=== PATIENT | female | born 1970 | race Asian ===

== ENCOUNTER 2024-09-01 08:31 | Outpatient (AMB) | payer OTHER, SELFPAY ==
--- NOTE | 2024-09-01 08:34 | MHC.PC.OV ---
Vital Signs 09/01/24 08:59 Height 5 ft Weight 165 lb BMI 32.2 BP 144/74 H Blood Pressure Location Lt brachial Position Sitting Respiration 13 Pulse 78 Pulse Source Pulse Oximeter Temp 97.2 F Temp Source Oral Pulse Oximetry (%) 99 Oxygen Delivery Method Room Air Intake Visit Reasons: est care Intake Note: New patient to establish care Burnisher Required: No Allergies No Known Allergies Allergy (Verified 09/01/24 09:23) Medication List - Last Reconciled 09/02/24 by CHON MonzonP- apixaban (Eliquis) 2.5 mg PO BID blood sugar diagnostic (FreeStyle Lite Strips) As directed blood-glucose meter (FreeStyle Lite Meter kit) As directed calcitriol 0.25 mcg PO 3XW calcium acetate 667 mg PO QID clonidine HCl 0.2 mg PO BID escitalopram oxalate (Lexapro) 10 mg PO DAILY esomeprazole magnesium 40 mg PO DAILY hydrochlorothiazide 12.5 mg PO DAILY insulin glargine (Lantus U-100 Insulin) 10 units subcut DAILY lancets As directed levothyroxine 75 mcg PO DAILY linagliptin 5 mg PO DAILY losartan 100 mg PO DAILY nifedipine ER 30 mg PO DAILY ondansetron HCl 4 mg PO DAILY PRN prazosin 5 mg PO BID repaglinide 0.5 mg PO TID sildenafil (pulm.hypertension) 20 mg PO TID torsemide 40 mg PO DAILY Tobacco use date assessed: 09/01/24 Dental Screening Dental Screen Date: 09/01/24 Did you have a dental visit in the last 12 months?: No Did you have a dental problem in the last 6 months where you did not have access to dental care?: No Was dental information given to patient?: Yes HPI HPI Comments History of Present Illness Details 54 y/o F with pericardial effusion, pulmonary HTN, CKD on dialysis, DM2, hypothroid lap matias Health Maintenance Tdap admin today Specialists [facility] Pulm Optho History of Present Illness - The patient is a 54-year-old female presenting to establish care and management of her chronic conditions. - Just moved from [place] 1 month ago; Dtr offers help with language barrier - History of type 2 diabetes with complications; control previously on insulin, current fluctuations with levels averaging 300 mg/dL post dialysis initiation. Was on Insulin but stopped taking. A1c 7.9% in the setting of anemia, so falsey low. - Chronic kidney disease necessitating dialysis since June 2024, [facility] Dialysis - Hypothyroidism, pulmonary hypertension, and pericardial effusion documented. - Recent hospitalization for pericardial effusion, initiating dialysis due to elevated creatinine and potassium levels. - Transition complications due to recent relocation from [place] with adjustments in healthcare access and management. Review of Systems - Cardiovascular: Denies current chest pain, but has had recent hospitalization for pericardial effusion. - Endocrine: Reports history of hypothyroidism and diabetes. - Genitourinary: Onset of dialysis discussed. - Medications: Discussed multiple daily medications, denies current medicine allergies. - Neurologic: No reports of dizziness or weakness. - Gastrointestinal: Absence of gallbladder noted. Physical Exam General: Well developed, well nourished, in no acute distress. Appears stated age. Head: Normocephalic, atraumatic. Eyes: Pupils are equal, round and reactive to light and accommodation. Conjunctivae are clear. Lungs: Dim throughout. Heart: Regular rate and rhythm. 2/6 systolic murmurs, No click, rubs or gallops are noted. Pulses: Peripheral pulses are equal and palpable bilaterally. Extremities: No clubbing, cyanosis nor edema is noted. Psych: Mood and affect appropriate. Diagnostic results Labs from Renal 07/2024 reviewed. I called [facility], who states she has only filled Losaratan 100mg QD and Nifedipine Er 30mg QD on 08/01/24, no other meds filled there. When i looked up the meds that she brought me that she has been taking from [place] (see above), here is what i came up with. Acebrophylline is not [place] FDA approved for use, COPD. Yan IBARRA is also not [place] FDA approved for use of angina. Isosorbide could be used, listed on drug list elsewhere Ranexa is the closest [place] equivalent. Atorvastatin 20mg and ASA can be given in place of one of the meds. Repaglinide is avail here but i dont know how often she is taking. Discussion Notes I discussed with the patient the complexities of her current health status, focusing on her chronic conditions such as diabetes, kidney disease, hypertension, and the recent adjustment to dialysis. We explored management options including continued monitoring of blood pressure and glucose levels, ensuring stability on her current medication regimen. The importance of regular diabetic eye exams was highlighted, with a referral provided locally. Adjusting to, and understanding the [place] healthcare system were discussed, offering support as needed. We emphasized potential benefits from a manpower development specialist manager to aid in her diabetes management, outlining available resources and ensuring continuity of care, including regular follow-up for ongoing monitoring. Assessment and Plan 1. Type 2 Diabetes Mellitus - Monitor glucose levels. - customer training specialist referral provided. - Target A1c below 7.0. 2. Hypertension - Working on meds @ this time as i am not sure what she really has been taking. Her dtr provided a very long list of meds; but i cannot find a local claim hx and the meds are not all accounted for from [place]. 3. Chronic Kidney Disease - Ongoing dialysis. - Nephrology follow-up for monitoring and management. 4. Hypothyroidism - Continue thyroid medication. - Monitor levels and adjust therapy. TSH > 6 increase from 50mcg qd to 75 mcg Endo referral in place 5. Pulmonary Hypertension - Monitor for symptoms; cardiology referral placed . - Continue current management plan. - unclear if she is on or taking torsemide. 6. Pericardial Effusion - Monitor for symptom recurrence. Cards referral 7. Eye Exam - Referral to ophthalmology for retinopathy screening. - Importance of annual exams emphasized. In closing - The meds i have prescribed are Losartan Nifedipine lantus 5 units Zofran atorvastatin levothyroxine nifedipine DM testing supplies I could not confirm any of the other meds, depsite several hours of effort. Consent Patient was informed and verbally consented to the use of an ambient scribe for clinic note documentation during this visit. Total time spent caring for the patient today was 90 minutes. This includes time spent before the visit reviewing the chart, time spent during the visit, and time spent after the visit on documentation, reviewing laboratory results, diagnostic imaging, medications, performing a medically necessary evaluation, counseling on diagnoses, care coordination, ordering appropriate tests, ordering appropriate medications, review of tests performed by other providers, reporting test results with the patient, communication with other healthcare providers. [facility] Medical History (Updated 09/02/24 @ 16:43 by [facility] Edema GERD (gastroesophageal reflux disease) Kidney disease Liver disease Spine disorder Surgical History (Updated 09/01/24 @ 09:26 by José Flaherty MA) No pertinent past surgical history Family History (Updated 09/01/24 @ 09:24 by José Flaherty MA) Mother HTN (hypertension) Diabetes Father HTN (hypertension) Sister Diabetes Brother Diabetes Social History (Updated 09/01/24 @ 09:23 by José Flaherty MA) Household Members: Family Both parents involved: No Caregiver staying overnight: No Housing: House Are you a primary child care center administrator to a significant other at home: No Do you presently have visiting nurse or other home services: No 75 years or older and lives alone: No Alcohol intake: never Patient Tobacco Use Status: Never used Tobacco e-Cigarette/Vaping Use: Never Used Second Hand Smoke Exposure: No Current occupational status: unemployed and disabled Cognitive needs: No Hearing needs: No Vision needs: No Questionnaire PHQ-9 Over the last 2 weeks, how often have you been bothered by any of the following problems? 1. Little interest or pleasure in doing things: not at all 2. Feeling down, depressed, or hopeless: not at all 3. Trouble falling or staying asleep, or sleeping too much: not at all 4. Feeling tired or having little energy: not at all 5. Poor appetite or overeating: not at all 6. Feeling bad about yourself - or that you are a failure or have let yourself or your family down: not at all 7. Trouble concentrating on things, such as reading the newspaper or watching television: not at all 8. Moving or speaking so slowly that other people could have noticed. Or the opposite - being so fidgety or restless that you have been moving around a lot more than usual: not at all 9. Thoughts that you would be better off or of hurting yourself in some way: not at all Total score: 0 Depression Screening Interpretation: Negative Depression Screening Done: Yes 38633 - PHQ-9 Billing: Yes Source: Developed by Drs. Geo Frank, Sharon Murillo, Alex Mcnally and colleagues, with an educational malika from [employer]. Thrive Questionnaire Date Thrive assessed: 09/01/24 I am a: Parent/Caregiver What is your living situation today?: I have a steady place to live Within the past 12 months, did the food you bought not last and you didn't have the money to get more?: Never true Within the past 12 months, did you worry whether your food would run out before you got money to buy more?: Never true Do you have trouble paying for medicines?: No Do you have trouble getting transportation to medical appointments?: Yes Do you have trouble paying your heating and electricity bill?: No Do you have trouble taking care of your child, family member or friend?: No Do you have trouble with day-to-day activities such as bathing, preparing meals, shopping, managing finances, etc.?: Yes Are you currently unemployed and looking for a job?: No Are you interested in more education?: No Please select the resources that you would like help with: Transportation Currently or been in a relationship where the following occur: No concerns reported THRIVE Score: 1 AUDIT C Alcohol Use Questionnaire (AUDIT-C) 1. How often do you have a drink containing alcohol?: Never 3. How often do you have six or more drinks on one occasion?: Never Total Score: 0 Score Reviewed/Action Taken: Yes BRIAN-7 AMB Questionnaire BRIAN-7 Date BRIAN - 7 assessed: 09/01/24 Feeling nervous, anxious, or on edge: 0 = Not at all Not being able to stop or control worryin = Not at all Worrying too much about different things: 0 = Not at all Trouble relaxin = Not at all Being so restless that it is hard to sit still: 0 = Not at all Becoming easily annoyed or irritable: 0 = Not at all Feeling afraid as if something awful might happen: 0 = Not at all Total BRIAN-7 score (0-4 normal; 5-9 mild; 10-14 moderate; 15-21 severe): 0 Source: Developed by Drs. Geo Frank, Sharon Murillo, Alex Mcnally and colleagues, with an educational malika from [employer]. BRIAN-7 Assessment Billing BRIAN-7 Assessment Tool: BRIAN-7 Assessment 19264 Physical exam (Primary Care) Vital Signs: Last Vital Signs Temp 97.2 F 09/01/24 08:59 Pulse 78 09/01/24 08:59 Resp 13 09/01/24 08:59 BP 144/74 H 09/01/24 08:59 Pulse Ox 99 09/01/24 08:59 Oxygen Delivery Method Room Air 09/01/24 08:59 BMI result Body Mass Index 32.2 Tobacco/Smoking Status: Tobacco use Status Tobacco use date assessed 09/01/24 09/01/24 08:37 Patient Tobacco Use Status Never used Tobacco 09/01/24 09:23 e-Cigarette/Vaping Use Never Used 09/01/24 09:23 PHQ-9: PHQ-9 Score PHQ-9: Total score 0 09/02/24 11:20 Depression Screening Interpretation: Negative Thrive Assessment: Date of Thrive Assessment Date Thrive assessed 09/01/24 09/01/24 08:37 Currently or been in a relationship where the following occur: No concerns reported Results AMB Hemoglobin A1c AMB Hemoglobin A1c 7.9 % Last Edit by José Flaherty MA on 09/01/24 09:20 Immunizations Boostrix Tdap 2.5 Lf unit-8 mcg-5 Lf/0.5 mL intramuscular syringe Performing Provider: GABBIE Monzon [place] [facility] Administered by: José Flaherty MA on 09/01/24 09:38 Dose Route Admin Location Dispensed Lot Number Expiration Date [facility] Dye Tub Operator 0.5 mL IM Left Deltoid 0.5 mL [id number] 11/25/26 [id number] [employer] VIS Given Date VIS Provided VIS Publication Date 09/01/24 Single Vaccine 20 Eligibility Eligibility Date Funding Source Not [facility] Eligible 09/01/24 Private Results Reviewed Results Reviewed: Laboratory Last Values Hgb A1c (Clinic) 7.9 % (4.0-6.0) H 09/01/24 09:20 Coding Level of Care Code New Pt Level 5 (32002) Complex EM visit Add On G2211 Diagnoses Encounter to establish care Z76.89 Dialysis patient Z99.2 ESRD on hemodialysis N18.6; Z99.2 Diabetes mellitus type 2 with complications E11.8 Acquired hypothyroidism E03.9 Hypothyroidism type: acquired Hypertension due to endocrine disorder I15.2 Hypertension type: secondary to endocrine disorders Secondary hyperparathyroidism (of renal origin) N25.81 Anemia in chronic kidney disease, on chronic dialysis N18.6; D63.1; Z99.2 Need for Tdap vaccination Z23 Angina pectoris associated with type 2 diabetes mellitus E11.59; I20.9 Pulmonary HTN I27.20 Pericardial effusion I31.39 CPT Codes [facility] OUTPT/OFFICE VIS - G2212 Additional Codes BRIAN-7 Assessment Billing - BRIAN-7 Assessment Tool: BRIAN-7 Assessment 44444 ([id number]) PHQ-9 - 88812 - PHQ-9 Billing: Yes ([id number]) Assessment & Plan Assessment & Plan (1) Encounter to establish care: Code(s): Z76.89 - Persons encountering health services in other specified circumstances (2) Dialysis patient: Comment: [facility] dialysis, Dr Shahab Weinberg Code(s): Z99.2 - Dependence on renal dialysis Category: Medical (3) ESRD on hemodialysis: Code(s): N18.6 - End stage renal disease; Z99.2 - Dependence on renal dialysis Category: Medical (4) Diabetes mellitus type 2 with complications: Code(s): E11.8 - Type 2 diabetes mellitus with unspecified complications Category: Medical (5) Hypothyroid: Code(s): E03.9 - Hypothyroidism, unspecified Category: Medical Qualifiers: Hypothyroidism type: acquired Qualified Code(s): E03.9 - Hypothyroidism, unspecified (6) HTN (hypertension): Code(s): I10 - Essential (primary) hypertension Category: Medical Qualifiers: Hypertension type: secondary to endocrine disorders Qualified Code(s): I15.2 - Hypertension secondary to endocrine disorders (7) Secondary hyperparathyroidism (of renal origin): Comment: 08/17/24 [facility] Code(s): N25.81 - Secondary hyperparathyroidism of renal origin Category: Medical (8) Anemia in chronic kidney disease, on chronic dialysis: Code(s): N18.6 - End stage renal disease; D63.1 - Anemia in chronic kidney disease; Z99.2 - Dependence on renal dialysis Category: Medical (9) Need for Tdap vaccination: Code(s): Z23 - Encounter for immunization Category: Medical (10) Angina pectoris associated with type 2 diabetes mellitus: Code(s): E11.59 - Type 2 diabetes mellitus with other circulatory complications; I20.9 - Angina pectoris, unspecified Category: Medical (11) Pulmonary HTN: Code(s): I27.20 - Pulmonary hypertension, unspecified Category: Medical (12) Pericardial effusion: Code(s): I31.39 - Other pericardial effusion (noninflammatory) Category: Medical Plan . Orders: Orders AMB Hemoglobin A1c 09/01/24 E11.8 - Type 2 diabetes mellitus with unspecified complications, Z13.9 - Encounter for screening, unspecified TDaP Immunization 09/01/24 Z23 - Encounter for immunization Referrals Ophthalmology Referral E11.8 - Type 2 diabetes mellitus with unspecified complications Cardiology Referral E11.59 - Type 2 diabetes mellitus with other circulatory complications, E11.8 - Type 2 diabetes mellitus with unspecified complications, I10 - Essential (primary) hypertension, I20.9 - Angina pectoris, unspecified, I27.20 - Pulmonary hypertension, unspecified, I31.39 - Other pericardial effusion (noninflammatory) Endocrinology Referral E03.9 - Hypothyroidism, unspecified, E11.8 - Type 2 diabetes mellitus with unspecified complications, N18.6 - End stage renal disease, Z99.2 - Dependence on renal dialysis Pulmonology Referral I27.20 - Pulmonary hypertension, unspecified, I31.39 - Other pericardial effusion (noninflammatory) Medications: New levothyroxine 75 mcg PO DAILY 90 tabs 0RF atorvastatin 20 mg PO BEDTIME 90 tabs 0RF losartan 100 mg PO DAILY 90 tabs 0RF nifedipine ER 30 mg PO DAILY 90 tabs 0RF insulin glargine (Lantus U-100 Insulin) 5 units (0.05 mL) subcut DAILY 90 days 4.5 mL 0RF pen needle, diabetic (Comfort EZ Pen [place]) As directed daily 100 ea 0RF blood-glucose meter (FreeStyle Lite Meter kit) As directed 1 ea 0RF E11.8 - Type 2 diabetes mellitus with unspecified complications blood sugar diagnostic (FreeStyle Lite Strips) As directed 100 ea 11RF E11.8 - Type 2 diabetes mellitus with unspecified complications lancets As directed 100 ea 0RF ondansetron HCl 4 mg PO DAILY PRN 90 tabs 0RF nausea and vomiting
--- OUTSIDE RECORDS SUMMARY | 2024-09-01 08:52 | XMS_ITS | Encounter Summary ---
Author Organization [facility], Address [address] [place] [address] Phone Care Team Providers Care Bed And Breakfast Cook Name Role Phone Simone Guerra MD Primary Care Provider [phone] Encounter Details Date Type Department Care Team (Late st Contact Info) Description 08/29/2024 Treatment [facility], [address] [place] [phone] [place] [address] [place] [phone] End stage renal disease; Dependence on renal dialysis Social History Tobacco Use Types Packs/Day Years Used Date Smoking Tobacco: Never Assessed Comments Unknown Sex and Gender Information Value Date Recorded Sex Assigned at Not on file Legal Sex Female 8:56 AM EDT Gender Identity Not on file Sexual Orientation Not on file documented as of this encounter Miscellaneous Notes * Dialysis Note - Ally Dodge APRN - 08/29/2024 12:00 AM EDT Patient: AMANDA JIM, 1970, 54y, F Dialysis Location: [facility] Attending Brewing Director: Shahab Weinberg Service Date: 08/29/2024 Service Provider: Ally Dodge NP I met face to face with the patient today. OVERVIEW The patient presented with ESRD on dialysis Primary cause of renal failure: Hypertensive chronic kidney disease with stage 1 through stage 4 chronic kidney disease, or unspecified chronic kidney disease DIALYSIS PRESCRIPTION IHD 3x Week Start date: 08/22/24 Dialyzer: 160NRe Optiflux BFR: 350 DFR: Manual 800 Potassium: 2.0 Sodium: 137 EDW: 76 Duration: 3:30 Calcium: 2.50 Bicarb: 35 Rx updated on: 08/22/2024 TREATMENT ASSESSMENT BP Stand Pre 08/26/2024: 156/64 08/24/2024: 121/58 08/22/2024: 164/104 BP Sit Pre 08/26/2024: 138/66 08/24/2024: 111/56 08/22/2024: 161/69 BP Stand Post 08/26/2024: 160/68 08/24/2024: 125/48 08/22/2024: 165/70 BP Sit Post 08/26/2024: 173/80 08/24/2024: 139/63 08/22/2024: 171/72 Tx Duration 08/26/2024: 3:38 08/24/2024: 3:31 08/22/2024: 3:35 Missed Treatments 0 - last 30 days 0 - last 60 days FLUID ASSESSMENT EDW (kg) 08/26/2024: 76.0 08/24/2024: 76.0 08/22/2024: 76.0 Weight Pre (kg) 08/26/2024: 76.8 08/24/2024: 78.2 08/22/2024: 76.7 Weight Post (kg) 08/26/2024: 74.3 08/24/2024: 74.8 08/22/2024: 75.2 PWV (kg) 08/26/2024: -1.7 08/24/2024: -1.2 08/22/2024: -0.8 UF Rate (mL/kg/hr) 08/26/2024: 9.3 08/24/2024: 12.9 08/22/2024: 5.6 ADEQUACY ASSESSMENT spKt/V, URR 08/03/2024: 1.85, 79.0 07/22/2024: 1.28, 67.0 ACCESS ASSESSMENT Access Type: [email or web address] Access SubType: Standard Access Status: Active (In Use) - 07/13/2024 Access Location: Right Upper Arm Created: --/--/---- Flow 08/29/2024: 1808 ANEMIA ASSESSMENT HGB, TSAT 08/24/2024: 9.7, - 08/17/2024: 9.6, 25.0 08/10/2024: 10.0, - Ferritin 08/17/2024: 826.0 07/18/2024: 1170.0 Mircera, IVP (mcg) 08/26/2024: 75 08/10/2024: 75 Iron Sucrose (Venofer) (mg) 08/26/2024: 100 08/24/2024: 100 08/22/2024: 100 BMM ASSESSMENT PTH, Intact 08/17/2024: 339.0 07/18/2024: 276.0 Calcium, Phosphorus 08/17/2024: 8.1, 4.8 07/18/2024: 8.3, 4.6 Vitamin D (Calcitriol) Oral (mcg) 08/26/2024: 0.25 08/24/2024: 0.25 08/22/2024: 0.25 NUTRITION ASSESSMENT Potassium, Albumin 08/22/2024: 4.4, - 08/17/2024: 4.8, 3.6 08/15/2024: 5.0, - eNPCR 08/03/2024: 0.7 07/22/2024: 0.61 DIAGNOSIS Chief Complaint: N18.6 End stage renal disease Comments: Patient seen and examined. VSS with no complaints to offer. S1, S2, RRR. LS CTA bilaterally. Access patent. Patient is stable. Patient data updated 08/29/2024 at 8:29 AM Signed By: Ally Dodge NP on 08/29/2024 8:30:05 AM documented in this encounter Plan of Treatment Not on file documented as of this encounter Visit Diagnoses Diagnosis End stage renal disease Dependence on renal dialysis documented in this encounter Care Teams Bed And Breakfast Cook Relationship Specialty Start Date End Date Simone Guerra MD [address] [address] PCP - General Family Medicine 08/09/24 documented as of this encounter
[2024-09-01 08:59] VITALS: BP 144/74; PULSE 78; RESP 13; TEMP 36.2; O2SAT 99; BMI 32.2
== END 2024-09-01 09:42 | disposition home or self-care (01) ==
LOC: HO.HMCFM 08:32
PROVIDERS: PCP Nurse Practitioner Family; Visit Provider Nurse Practitioner Family
DX: Z13.9 Encounter for screening, unspecified (principal); E11.8 Type 2 diabetes mellitus with unspecified complications; Z23 Encounter for immunization

== ENCOUNTER → 2024-09-01 08:31 | Outpatient (BNVA) | payer OTHER, SELFPAY | PROVIDERS: PCP Nurse Practitioner Family; Visit Provider Nurse Practitioner Family | DX: E11.22 Type 2 diabetes mellitus with diabetic chronic kidney disease (principal); N18.6 End stage renal disease; E03.9 Hypothyroidism, unspecified; I27.20 Pulmonary hypertension, unspecified; E11.8 Type 2 diabetes mellitus with unspecified complications; I15.2 Hypertension secondary to endocrine disorders; Z76.89 Persons encountering health services in other specified circumstances; Z23 Encounter for immunization; Z99.2 Dependence on renal dialysis | CPT/HCPCS: 83036; 90471; 90715; 96127 ==

== ENCOUNTER 2024-09-07 09:12 | Outpatient (AMB) | payer OTHER, SELFPAY ==
--- NOTE | 2024-09-07 09:19 | MHC.PC.OV ---
Intake Visit Reasons: Med Review Allergies No Known Allergies Allergy (Verified 09/07/24 09:50) Medication List - Last Reconciled 09/07/24 by Nora Franklin, [facility]- apixaban (Eliquis) 2.5 mg PO BID atorvastatin 20 mg PO BEDTIME blood sugar diagnostic (FreeStyle Lite Strips) ONCE PER DAY blood-glucose meter (FreeStyle Lite Meter kit) ONCE PER DAY calcitriol 0.25 mcg PO 3XW calcium acetate 667 mg PO QID clonidine HCl 0.2 mg PO BID escitalopram oxalate (Lexapro) 10 mg PO DAILY esomeprazole magnesium 40 mg PO DAILY hydrochlorothiazide 12.5 mg PO DAILY insulin glargine (Lantus U-100 Insulin) 5 units (0.05 mL) subcut DAILY 90 days lancets ONCE PER DAY levothyroxine 75 mcg PO DAILY linagliptin 5 mg PO DAILY losartan 100 mg PO DAILY nifedipine ER 30 mg PO DAILY ondansetron HCl 4 mg PO DAILY PRN pen needle, diabetic (Comfort EZ Pen [place]) As directed daily prazosin 5 mg PO BID repaglinide 0.5 mg PO TID sildenafil (pulm.hypertension) 20 mg PO TID torsemide 40 mg PO DAILY Tobacco use date assessed: 09/01/24 Dental Screening Dental Screen Date: 09/01/24 HPI HPI Comments History of Present Illness Details 54 y/o F with pericardial effusion, pulmonary HTN, CKD on dialysis, DM2, hypothroid lap matias Health Maintenance Tdap 08/2024 [facility] Here with dtr today to review medications Presents with the same list as last time Brother, who is a Dr in [place], called at the time of the visit He states she was Rxd lexapro for anxiety that she was having while hospitalized. She is no longer having anxiety now that she is here with Dtr. has been w/o this med since May and does not need it. The eliquis was started before having an angiogram while she was hospitalized. She was to stop it after a negative angiogram 05/2024. She in fact has not been taking this She does not have Afib. She has been taking linagliptin 5mg for her DM and kidneys but has been without Rapaglinide 0.5 mg TID for diabetes, has been without for at least 2 weeks For BP control: HCTZ, clonidine in addition to losartan Pulm HTN sildenafil 20mg TID , prazosin 5 mg BID , Torsemide 40mg daily Esomeprazole for GI protection I reviewed the meds below and my findings: When i looked up the meds that she brought me that she has been taking from [place] (see above), here is what i came up with. Acebrophylline is not [place] FDA approved for use, COPD. Yan IBARRA is also not [place] FDA approved for use of angina. Isosorbide could be used, listed on drug list elsewhere Ranexa is the closest [place] equivalent. Atorvastatin 20mg and ASA can be given in place of one of the meds.* Repaglinide is avail here but i dont know how often she is taking. * Brother agrees to cont * meds but stopping all others. Cards, Pulm appts pending at this time Message sent to cards for appt and help w med optimization Defer to Pulm for CPAP/02 needs. Endo appt scheduled - they can adjust meds as needed. refills have been sent on all meds; eliquis and lexapro were d/c. new med listed printed and given to dtr at time of visit Total time spent caring for the patient today was 61 minutes. This includes time spent before the visit reviewing the chart, time spent during the visit, and time spent after the visit on documentation, reviewing laboratory results, diagnostic imaging, medications, performing a medically necessary evaluation, counseling on diagnoses, care coordination, ordering appropriate tests, ordering appropriate medications, review of tests performed by other providers, reporting test results with the patient, communication with other healthcare providers. [facility] Medical History (Updated 09/07/24 @ 09:50 by Nora Franklin, [facility]) Edema GERD (gastroesophageal reflux disease) Kidney disease Liver disease Spine disorder Surgical History (Updated 09/01/24 @ 09:26 by José Flaherty MA) No pertinent past surgical history Family History (Updated 09/01/24 @ 09:24 by José Flaherty MA) Mother HTN (hypertension) Diabetes Father HTN (hypertension) Sister Diabetes Brother Diabetes Social History (Updated 09/01/24 @ 09:23 by José Flaherty MA) Household Members: Family Both parents involved: No Caregiver staying overnight: No Housing: House Are you a primary resident care assistant to a significant other at home: No Do you presently have visiting nurse or other home services: No 75 years or older and lives alone: No Alcohol intake: never Patient Tobacco Use Status: Never used Tobacco e-Cigarette/Vaping Use: Never Used Second Hand Smoke Exposure: No Current occupational status: unemployed and disabled Cognitive needs: No Hearing needs: No Vision needs: No Questionnaire Thrive Questionnaire Date Thrive assessed: 09/01/24 BRIAN-7 AMB Questionnaire BRIAN-7 Date BRIAN - 7 assessed: 09/01/24 Source: Developed by Drs. Geo Frank, Sharon Murillo, Alex Mcnally and colleagues, with an educational malika from [employer]. Physical exam (Primary Care) Tobacco/Smoking Status: Tobacco use Status Tobacco use date assessed 09/01/24 09/01/24 08:37 Patient Tobacco Use Status Never used Tobacco 09/01/24 09:23 e-Cigarette/Vaping Use Never Used 09/01/24 09:23 Thrive Assessment: Date of Thrive Assessment Date Thrive assessed 09/01/24 09/01/24 08:37 Coding Level of Care Code Est Pt Level 5 (39108) Complex EM visit Add On G2211 Diagnoses Health education/counseling Z71.9 Diabetes mellitus type 2 with complications E11.8 Hypertension due to endocrine disorder I15.2 Hypertension type: secondary to endocrine disorders Pericardial effusion I31.39 Secondary hyperparathyroidism (of renal origin) N25.81 Pulmonary HTN I27.20 Angina pectoris associated with type 2 diabetes mellitus E11.59; I20.9 Assessment & Plan Assessment & Plan (1) Health education/counseling: Code(s): Z71.9 - Counseling, unspecified Category: Medical (2) Diabetes mellitus type 2 with complications: Code(s): E11.8 - Type 2 diabetes mellitus with unspecified complications Category: Medical (3) HTN (hypertension): Code(s): I10 - Essential (primary) hypertension Category: Medical Qualifiers: Hypertension type: secondary to endocrine disorders Qualified Code(s): I15.2 - Hypertension secondary to endocrine disorders (4) Pericardial effusion: Code(s): I31.39 - Other pericardial effusion (noninflammatory) Category: Medical (5) Secondary hyperparathyroidism (of renal origin): Comment: 08/17/24 339 Code(s): N25.81 - Secondary hyperparathyroidism of renal origin Category: Medical (6) Pulmonary HTN: Code(s): I27.20 - Pulmonary hypertension, unspecified Category: Medical (7) Angina pectoris associated with type 2 diabetes mellitus: Code(s): E11.59 - Type 2 diabetes mellitus with other circulatory complications; I20.9 - Angina pectoris, unspecified Category: Medical Plan . Medications: New repaglinide administer within 30 minutes of a meal or snack 0.5 mg PO TID 90 tabs 0RF clonidine HCl 0.2 mg PO BID 180 tabs 0RF hydrochlorothiazide 12.5 mg PO DAILY 90 tabs 0RF esomeprazole magnesium 40 mg PO DAILY 90 caps 0RF aspirin 81 mg PO DAILY 90 tabs 2RF linagliptin 5 mg PO DAILY 90 tabs 2RF sildenafil (pulm.hypertension) administer doses at least 4-6 hours apart 20 mg PO TID 90 tabs 0RF prazosin 5 mg PO BID 180 caps 0RF torsemide 40 mg PO DAILY 90 tabs 0RF
--- OUTSIDE RECORDS SUMMARY | 2024-09-07 09:47 | XMS_ITS ---
Author Organization [facility] tia ([facility] interaction) Address [address] [place] [id number] Care Team Providers Care Chemical Milling Processor Name Role Phone Unavailable Unavailable Unavailable Allergies, Adverse Reactions, Alerts This patient has no known allergies or adverse reactions. Problems This patient has no known problems.
== END 2024-09-07 09:43 | disposition home or self-care (01) ==
LOC: HO.HMCFM 09:12
PROVIDERS: PCP Nurse Practitioner Family; Visit Provider Nurse Practitioner Family
DX: E11.8 Type 2 diabetes mellitus with unspecified complications (principal); E11.59 Type 2 diabetes mellitus with other circulatory complications; I27.20 Pulmonary hypertension, unspecified; Z71.9 Counseling, unspecified; I15.2 Hypertension secondary to endocrine disorders; I31.39 Other pericardial effusion (noninflammatory); N25.81 Secondary hyperparathyroidism of renal origin; I20.9 Angina pectoris, unspecified

== ENCOUNTER → 2024-09-07 09:12 | Outpatient (BNVA) | payer OTHER, SELFPAY | PROVIDERS: PCP Nurse Practitioner Family; Visit Provider Nurse Practitioner Family | DX: Z13.89 Encounter for screening for other disorder (principal) ==

== ENCOUNTER 2024-09-13 13:25 | Outpatient (AMB) | payer OTHER, SELFPAY ==
[2024-09-13 13:27] VITALS: BP 130/52; PULSE 71; O2SAT 95; BMI 32.5
--- NOTE | 2024-09-13 13:27 | MHC.OFFVIS ---
Vital Signs 09/13/24 13:27 Height 5 ft Weight 166 lb 4 oz BMI 32.5 BP 130/52 L Blood Pressure Location Lt brachial Position Sitting Pulse 71 Pulse Source Pulse Oximeter Pulse Oximetry (%) 95 Oxygen Delivery Method Room Air Intake Visit Reasons: Pulmonary hypertension/ Allergies No Known Allergies Allergy (Verified 09/13/24 13:30) HPI HPI Pulmonary hypertension/: Details: Amanda is a pleasant 54 year old female, never smoker, with underlying COPD, pulmonary hypertension, CKD on dialysis 06/2024, h/o pericardial effusion, DMII, Hypothyroidism and question ELTON, previously on ELTON. She recently moved here from [facility] two months ago and presents to establish pulmonary care. She is accompanied by daughter, and on the phone was her son, physician in [place]. She is requesting daughter translate for duration of appointment. She reports hospitalizations earlier this year related to CKD now maintained on dialysis MWF, h/o pericardial effusion and new diagnosis of moderate pulmonary hypertension. She had echo 05/2024 in [facility] which revealed LVEF 55%, dilated RA/RV with RVSP 54, currently on sildenafil, toresemide and prazosin. She also underwent cardiac cath however RVSP or pulmonary wedge pressure not documented. Prior CTA 05/2024 performed in [facility] revealed enlargement of pulmonary trunk, negative for PE with patchy ggo of bilateral lungs, images not available today. Prior to hospitalizations patient with significant dyspnea resulting in limited activity and orthopnea however since initiating dialysis patient reports resolution of dyspnea on minimal exertion/orthopnea, continues with moderate exertion. At this time, denies cough, wheezing or chest tightness. She denies prior h/o asthma, diagnosed with COPD after COVID 2019. She has previously been prescribed nebulized therapy with budesonide with good effect. She does not currently have a nebulizer. She denies prior need for supplemental oxygen, often checks at home never less than 95% on room air. She denies seasonal allergies. She denies occupational exposures. She denies any pertinent family history. [facility] Medical History (Updated 09/15/24 @ 16:51 by Oziel Ba MD) Kidney disease GERD (gastroesophageal reflux disease) Liver disease Edema Spine disorder Surgical History (Updated 09/01/24 @ 09:26 by José Flaherty MA) No pertinent past surgical history Family History (Updated 09/01/24 @ 09:24 by José Flaherty MA) Mother HTN (hypertension) Diabetes Father HTN (hypertension) Sister Diabetes Brother Diabetes Social History Household Members: Family Housing: House Are you a primary manager critical care unit to a significant other at home: No Do you presently have visiting nurse or other home services: No Alcohol intake: never Patient Tobacco Use Status: Never used Tobacco e-Cigarette/Vaping Use: Never Used Second Hand Smoke Exposure: No Current occupational status: unemployed and disabled Cognitive needs: No Hearing needs: No Vision needs: No Review of Systems Const Denies chills, Denies excessive sweating, Denies fever(s), Denies headache(s) and Denies night sweats Eyes Denies dry eyes, Denies irritation and Denies itchy eyes ENT Reports Normal hearing present, Denies headache(s), Denies nasal congestion, Denies nasal discharge, Denies post nasal drip and Denies sore throat Card Denies chest pain, Denies chest pain at rest, Denies chest pain with activity, Denies claudication, Denies leg edema, Denies orthopnea and Denies paroxysmal nocturnal dyspnea Resp Denies chest congestion, Denies cough, Denies excessive phlegm production, Denies pain on inspiration, Denies pain with cough, Denies stridor and Denies wheezing Musc Denies myalgias Neuro Reports Normal hearing present and Denies headache(s) Endo Denies excessive sweating Thierno/Lymph Denies lymphadenopathy Aller/Immun Denies itchy eyes, Denies seasonal rhinorrhea and Denies wheezing Physical Exam Vital Signs: Last Vital Signs Pulse 71 09/13/24 13:27 BP 130/52 L 09/13/24 13:27 Pulse Ox 95 09/13/24 13:27 Oxygen Delivery Method Room Air 09/13/24 13:27 BMI result Body Mass Index 32.5 Const General: cooperative, healthy appearing, comfortable, no acute distress, well developed and alert Nutritional Appearance: obese Orientation/consciousness: patient oriented x3 Limitations: no limitations HEENT Head: Yes normal to inspection, Yes normocephalic and Yes atraumatic Ears: hearing grossly normal bilaterally and external ears normal Eyes General: appearance normal, both eyes and all related structures Eyelids: Yes eyelids normal Sclerae: sclerae normal EOM: EOMs intact bilaterally Neck Neck: Yes normal visual inspection and Yes no lymphadenopathy Lymphatic: no lymphadenopathy noted Chest Chest palpation & inspection: normal inspection of the chest Resp Effort & Inspection: normal respiratory effort, able to speak in complete sentences, no audible wheezes, no cough, no stridor, not tachypneic, no tripod positioning and no use of accessory muscles Auscultation: clear to auscultation bilaterally Cardio Jugular venous distension: no JVD Rate: regular rate Rhythm: regular rhythm Skin Other: warm, dry General skin exam: no rashes or lesions noted Neuro General: patient oriented x3 Cranial nerves: Yes Normal hearing present Cognition (Neuro): normal cognition Gait exam (Neuro): Normal gait present Extrem General: Yes normal to inspection, Yes capillary refill normal, Yes no clubbing, cyanosis or edema and Yes no pedal edema Psych Appearance: grossly normal and well kempt Speech and movement: Normal speech and movement present and Clear speech present Affect: normal affect Attitude: cooperative Thought process: Normal thought process present Thought content: Normal thought content present Insight: Good insight present (Psych) Judgement: Good judgement present (Psych) Assessment & Plan Assessment & Plan (1) Pulmonary HTN: Code(s): I27.20 - Pulmonary hypertension, unspecified Category: Medical (2) COPD (chronic obstructive pulmonary disease): Code(s): J44.9 - Chronic obstructive pulmonary disease, unspecified Category: Medical (3) Obstructive sleep apnea: Code(s): G47.33 - Obstructive sleep apnea (adult) (pediatric) Category: Medical (4) Daytime somnolence: Code(s): R40.0 - Somnolence Category: Medical (5) Ground glass opacity present on imaging of lung: Code(s): R91.8 - Other nonspecific abnormal finding of lung field Category: Medical Plan Amanda presents for pulmonary evaluation with prior history of COPD and pulmonary hypertension. Prior estimated RSVP 55 on echo 05/2024. She underwent cardiac cath however no note of pulmonary pressures on this nor wedge pressure. Will repeat echo since patient has since initiated dialysis and may have been falsely elevated due to fluid overload. PCP recently refilled sildenafil which she is currently out of and awaiting prescription. At some point patient required CPAP therapy, will repeat to assess continued need as she reports daytime fatigue. Prior CT 05/2024 revealed diffuse ground glass opacities, possibly related to fluid overload, will repeat. Will send for PFT to assess severity of obstructive defect. She was previously on nebulized therapy in [place]. Will send nebulizer for home use with albuterol and consider ICS/LABA. All questions were answered and patient is in agreement of plan. Will follow up to review results or sooner if needed. Orders: Orders RT home sleep study Today R40.0 - Somnolence CT chest wo IV con Today R91.8 - Other nonspecific abnormal finding of lung field Medications: New albuterol sulfate 2.5 mg (3 mL) inhalation Q4-6H PRN 180 mL 3RF shortness of breath or wheezing Coding Level of Care Code New Pt Level 4 (00270) Complex EM visit Add On G2211 Diagnoses Pulmonary HTN I27.20 COPD (chronic obstructive pulmonary disease) J44.9 Obstructive sleep apnea G47.33 Daytime somnolence R40.0 Ground glass opacity present on imaging of lung R91.8
--- OUTSIDE RECORDS SUMMARY | 2024-09-13 15:17 | XMS_ITS | Encounter Summary ---
Author Organization [facility], Address [address] [place] [address] Phone Care Team Providers Care Pack Train Driver Name Role Phone Simone Guerra MD Primary Care Provider [phone] Encounter Details Date Type Department Care Team (Late st Contact Info) Description 09/07/2024 Orders Only [facility] [address] [place] [address] Shahab Weinberg MD [address] [place] [address] [place] [phone] Social History Tobacco Use Types Packs/Day Years Used Date Smoking Tobacco: Never Assessed Comments Unknown Sex and Gender Information Value Date Recorded Sex Assigned at Not on file Legal Sex Female 8:56 AM EDT Gender Identity Not on file Sexual Orientation Not on file documented as of this encounter Plan of Treatment Not on file documented as of this encounter Procedures Procedure Name Priority Date/Time Associated Diagnosis Comments HEMATOLOGY Routine 09/07/2024 documented in this encounter Results * (ABNORMAL) HEMATOLOGY (09/07/2024) Hemoglobin 9.6(L) 12.0 - 16.0 g/dL [facility] Hemoglobin x 3 28.8(L) 36.0 - 48.0 % [facility] 09/07/2024 09/08/2024 8:3 4 AM EDT Narrative [facility] - 09/08/2024 Unless otherwise specified, test(s) performed at: [facility], [address] [place] [address] METAL TRIMMER: Andry Spangler M.D. For any questions, please call customer service at FREQUENCY:OTHER Resulting Agency Comment Specimen source: Blood us Shahab Weinberg MD LAB BLOOD ORDERABLES Final Re sult [facility] See order comments or contact performing lab Unknown, [place] documented in this encounter Visit Diagnoses Not on filedocumented in this encounter Care Teams Pack Train Driver Relationship Specialty Start Date End Date Simone Guerra MD [address] [address] PCP - General Family Medicine 08/09/24 documented as of this encounter
== END 2024-09-13 14:09 | disposition home or self-care (01) ==
LOC: HO.HPSW 13:25
PROVIDERS: PCP Nurse Practitioner Family; Referring Provider Nurse Practitioner Family; Visit Provider Nurse Practitioner Family
DX: I27.20 Pulmonary hypertension, unspecified (principal); J44.9 Chronic obstructive pulmonary disease, unspecified; G47.33 Obstructive sleep apnea (adult) (pediatric); R40.0 Somnolence; R91.8 Other nonspecific abnormal finding of lung field
CPT/HCPCS: 99204; G2211

== ENCOUNTER → 2024-09-13 13:25 | Outpatient (BNVA) | payer OTHER, SELFPAY | PROVIDERS: PCP Nurse Practitioner Family; Referring Provider Nurse Practitioner Family; Visit Provider Nurse Practitioner Family ==

== ENCOUNTER 2024-09-15 14:59 | Outpatient (AMB) | payer OTHER, SELFPAY ==
[2024-09-15 15:11] VITALS: BP 180/80; PULSE 75; BMI 31.4
--- NOTE | 2024-09-15 15:11 | A.OFFVIS_ITS ---
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 Ricks/angina, pulm htn/ Customer Services Manager Required: Yes Customer Services Manager Services: Customer Services Manager Offered & Declined Accompanied by: Daughter Allergies No Known Allergies Allergy (Verified 09/13/24 13:30) Medication List - Last Reconciled 09/15/24 by Oziel Ba MD aspirin 81 mg PO DAILY atorvastatin 20 mg PO BEDTIME blood sugar diagnostic (FreeStyle Lite Strips) ONCE PER DAY blood-glucose meter (FreeStyle Lite Meter kit) ONCE PER DAY calcitriol 0.25 mcg PO 3XW clonidine HCl 0.2 mg PO BID hydrochlorothiazide 12.5 mg PO DAILY insulin glargine (Lantus U-100 Insulin) 5 units (0.05 mL) subcut DAILY 90 days lancets ONCE PER DAY levothyroxine 75 mcg PO DAILY linagliptin 5 mg PO DAILY losartan 100 mg PO DAILY nifedipine ER 30 mg PO DAILY ondansetron HCl 4 mg PO DAILY PRN pen needle, diabetic (Comfort EZ Pen Thom[place]ons) As directed daily prazosin 5 mg PO BID repaglinide 0.5 mg PO TID torsemide 40 mg (2 x 20 mg) PO DAILY HPI Comments Details: Patient has been referred for cardiac evaluation. She has recently come from [place]. It appears that she has nephropathy probably related to some combination of diabetes/hypertension. She was having symptoms of fluid retention including shortness of breath, leg swelling extra. Around June of this year, she was started on hemodialysis and after that, she has improved significantly and she no longer has those symptoms. In May 2024, she underwent a diagnostic catheterization that revealed underlying coronary disease but it does not appear that she actually had any PCI. Currently, she is not really having any active cardiac symptoms like angina. He is trying to establish care as she has moved here. She has started dialysis and doing it 3 times a week locally. She is found to Nephrology as well. As part of workup in [place], it seems that she was also diagnosed with pulmonary hypertension but not clear if it is all related to fluid retention from ESRD. [facility] Medical History (Updated 09/15/24 @ 16:51 by Oziel Ba MD) Kidney disease GERD (gastroesophageal reflux disease) Liver disease Edema Spine disorder Surgical History (Updated 09/01/24 @ 09:26 by José Flaherty MA) No pertinent past surgical history Family History (Updated 09/01/24 @ 09:24 by José Flaherty MA) Mother HTN (hypertension) Diabetes Father HTN (hypertension) Sister Diabetes Brother Diabetes Social History Household Members: Family Both parents involved: No Caregiver staying overnight: No Housing: House Are you a primary hospice care sales consultant to a significant other at home: No Do you presently have visiting nurse or other home services: No 75 years or older and lives alone: No Alcohol intake: never Patient Tobacco Use Status: Never used Tobacco e-Cigarette/Vaping Use: Never Used Second Hand Smoke Exposure: No Current occupational status: unemployed and disabled Cognitive needs: No Hearing needs: No Vision needs: No Review of Systems Const Denies weakness ENT Reports dizziness Card Denies chest pain, Denies chest pain with activity, Denies syncope, Denies rapid heart rate, Denies pedal edema, Denies edema, Denies leg edema, Denies lightheadedness, Denies palpitations, Denies dyspnea, Denies dyspnea on exertion and Denies orthopnea Resp Denies cough, Denies dyspnea and Denies dyspnea on exertion GI Denies hematochezia and Denies change in stool character Musc Denies abnormal gait, Denies muscle cramps, Denies muscle weakness, Denies numbness, Denies radiating pain into limb and Denies tingling Neuro Denies abnormal gait, Reports dizziness, Denies syncope, Denies numbness, Denies tingling and Denies weakness Endo Denies palpitations Physical Exam Vital Signs: Last Vital Signs Pulse 75 09/15/24 15:11 BP 180/80 H 09/15/24 15:11 BMI result Body Mass Index 31.4 Const General: comfortable and no acute distress Orientation/consciousness: patient oriented x3 HEENT Other: Unremarkable Head: Yes normal to inspection Neck Neck: Yes normal visual inspection Chest Chest palpation & inspection: normal inspection of the chest Resp Auscultation: clear to auscultation bilaterally Cardio Palpation: normal PMI Heart sounds: S1 normal heart sound present, S2 normal heart sound present, no gallops, Murmur heart sound present systolic II/ and no rubs GI Palpation (GI): Soft to palpation Back/Spine/Pelvis Other: unremarkable Skin General skin exam: no rashes or lesions noted Neuro General: patient oriented x3 Extrem General: Yes normal to inspection Psych Mental Status: mental status grossly normal Office Procedures EKG Details: EKG with underlying sinus rhythm at 75/Min; right bundle-branch block and left posterior fascicular block; normal DC and prolonged corrected QT. QRS [place]. [id number], Complete Assessment & Plan Assessment & Plan (1) Atherosclerotic cardiovascular disease: Code(s): I25.10 - Atherosclerotic heart disease of [place] coronary artery without angina pectoris Category: Medical Plan: Cardiac catheterization [place]-May 2024. Normal left main. LAD with calcific proximal plaque. Ramus with diffuse disease, small caliber. Circumflex add proximal 70-80% stenosis followed by 60-70% stenosis. OM1 with proximal 70% and diffuse distal disease. RCA with 60% proximal and distal stenosis. In the echocardiogram, LVEF is 55%. No description of wall motion abnormalities. She has got no clinical angina. Continue aspirin and statins. She will need cholesterol checks in due course. (2) Pulmonary HTN: Code(s): I27.20 - Pulmonary hypertension, unspecified Category: Medical Plan: Per available echocardiogram, RVSP around 54 mm Hg. Could be all related to fluid retention from dialysis. Can be rechecked. (3) Valvular heart disease: Code(s): I38 - Endocarditis, valve unspecified Category: Medical Plan: Per prior echocardiogram from [place], aortic valve sclerosis, mild aortic regurgitation, grade 2 mitral regurgitation and severe tricuspid regurgitation. To be rechecked. (4) HTN (hypertension): Code(s): I10 - Essential (primary) hypertension Category: Medical Qualifiers: Hypertension type: secondary to endocrine disorders Qualified Code(s): I15.2 - Hypertension secondary to endocrine disorders Plan: We discussed about hypertension management. As she is on dialysis, it should ideally get addressed through her small boat engineer. For the time being, may take an extra tablet of nifedipine and we discussed that as well. (5) ESRD on hemodialysis: Code(s): N18.6 - End stage renal disease; Z99.2 - Dependence on renal dialysis Category: Medical Plan: Currently on 3 times a week dialysis. They asked if they can skipped some dialysis sessions and I absolutely said no. Plan Discussion Notes I discussed with the patient the importance of managing hypertension in coordination with the small boat engineer, especially considering her dialysis schedule. We reviewed her current medications and the need for potential adjustments by the small boat engineer. I emphasized the necessity of not skipping dialysis sessions to prevent complications. Patient was informed and verbally consented to the use of an ambient scribe for clinic note documentation during this visit. Orders: Orders CA echo transthoracic complete Today I25.10 - Atherosclerotic heart disease of [place] coronary artery without angina pectoris, I27.20 - Pulmonary hypertension, unspecified Patient Instructions: - Continue taking current medications as prescribed. - Monitor blood pressure regularly and report any significant changes. - Do not skip dialysis sessions to avoid complications. - Follow up with the small boat engineer for medication adjustments. 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
--- OUTSIDE RECORDS SUMMARY | 2024-09-15 16:20 | XMS_ITS | Encounter Summary ---
Author Organization [facility], Address [address] [place] [address] Phone Care Team Providers Care Seater Assembler Name Role Phone Simone Guerra MD Primary Care Provider [phone] Encounter Details Date Type Department Care Team (Late st Contact Info) Description 09/14/2024 Orders Only [facility] [address] [place] [phone] Shahab Weinberg MD [address] [place] [address] [place] [address] Social History Tobacco Use Types Packs/Day Years [...] Procedure Name Priority Date/Time Associated Diagnosis Comments IMMUNO CHEMISTRY Routine 09/14/2024 HEMATOLOGY Routine 09/14/2024 CHEMISTRY Routine 09/14/2024 CHEMISTRY Routine 09/14/2024 documented in this encounter Results * IMMUNO CHEMISTRY (09/14/2024) Hep B Surface Ag Negative Negative [facility] 09/14/2024 09/15/2024 9:4 7 AM EDT Narrative Resulting Agency Comment Specimen source: Serum Shahab Weinberg MD LAB BLOOD ORDERABLES Final Re sult [facility] [place] See order comments or contact performing lab Unknown, [place] * (ABNORMAL) [facility] Chemistry (09/14/2024) BUN 30(H) 6 - 19 mg/dL [facility] Creatinine 4.45(H) 0.60 - 1.30 mg/dL [facility] BUN/Creatinine Ratio 6.7(L) 10.0 - 20.0 [facility] Sodium 139 136 - 145 mEq/L [facility] Potassium 5.2(H) 3.5 - 5.1 mEq/L [facility] Chloride 102 96 - 108 mEq/L [facility] Bicarbonate (CO2) 24 22 - 29 mEq/L [facility] Calcium 8.1(L) 8.4 - 10.2 mg/dL [facility] Phosphorus 4.4 2.6 - 4.5 mg/dL [facility] Calcium Phosphorus Product 36 0 - 54 [facility] Glucose 234(H) 70 - 100 mg/dL [facility] Magnesium 2.0 1.6 - 2.6 mg/dL [facility] Ferritin 951(H) 10 - 291 ng/mL [facility] Iron 60 30 - 160 mcg/dL [facility] UIBC 142(L) 155 - 355 mcg/dL [facility] TIBC 202 185 - 515 mcg/dL [facility] Iron Saturation (TSat) 30 20 - 55 % [facility] Corrected Calcium 8.5 8.4 - 10.2 mg/dL [facility] Comment: Corrected Calcium is not equivalent to measured Ionized Calcium. Calcium Phosporus Product, Cor 37 0 - 54 [facility] Albumin 3.5 3.5 - 5.2 g/dL [facility] 09/14/2024 09/15/2024 9:4 7 AM EDT Narrative [facility] - 09/15/2024 Unless otherwise specified, test(s) performed at: [facility], [address] [place] [address] [place] UNDERWRITER: Andry Spangler M.D. For any questions, please call customer service at FREQUENCY:MONTHLY Resulting Agency Comment Specimen source: Serum Shahab Weinberg MD LAB BLOOD ORDERABLES Edited R esult - Final Performing Organization Address [facility] Co de Phone Number [facility] See order comments or contact performing lab Unknown, [place] * (ABNORMAL) HEMATOLOGY (09/14/2024) Hemoglobin 10.6(L) 12.0 - 16.0 g/dL [facility] Hemoglobin x 3 31.8(L) 36.0 - 48.0 % [facility] 09/14/2024 09/15/2024 9:0 0 AM EDT Narrative [facility] - 09/15/2024 Unless otherwise specified, test(s) performed at: [facility] [place] [id number] [place] UNDERWRITER: Andry Spangler M.D. For any questions, please call customer service at FREQUENCY:MONTHLY Resulting Agency Comment Specimen source: Blood Shahab Weinberg MD LAB BLOOD ORDERABLES Final Re sult Performing Organization Address [facility] de Phone Number [employer] [facility] See order comments or contact performing lab Unknown, [place] * (ABNORMAL) [facility] Chemistry (09/14/2024) Pathologist [facility] PTH 421(H) 16 - 80 pg/mL [facility] 09/14/2024 09/15/2024 9:2 3 AM EDT Narrative [facility] - 09/15/2024 Unless otherwise specified, test(s) performed at: [facility], [address] [place] [address] [place] UNDERWRITER: Andry Spangler M.D. For any questions, please call customer service at FREQUENCY:MONTHLY Resulting Agency Comment Specimen source: Plasma Shahab Weinberg MD LAB BLOOD ORDERABLES Final Re sult Performing Organization Address [facility] Co de Phone Number [facility] See order comments or contact performing lab Unknown, [place] documented in this encounter Visit Diagnoses Not on filedocumented in this encounter Care Teams Seater Assembler Relationship Specialty Start Date End Date Simone Guerra MD [address] [facility] [address] [place] [address] PCP - General Family Medicine 08/09/24 documented as of this encounter
== END 2024-09-15 15:46 | disposition home or self-care (01) ==
PROVIDERS: PCP Nurse Practitioner Family; Visit Provider Internal Medicine
DX: I25.10 Atherosclerotic heart disease of native coronary artery without angina pectoris (principal); I27.20 Pulmonary hypertension, unspecified; I38 Endocarditis, valve unspecified; I15.2 Hypertension secondary to endocrine disorders; N18.6 End stage renal disease; Z99.2 Dependence on renal dialysis
CPT/HCPCS: 93010; 99204; G2211

== ENCOUNTER → 2024-09-15 14:59 | Outpatient (BNVA) | payer OTHER, SELFPAY | PROVIDERS: PCP Nurse Practitioner Family; Visit Provider Internal Medicine | DX: I45.2 Bifascicular block (principal); I27.20 Pulmonary hypertension, unspecified; I25.10 Atherosclerotic heart disease of native coronary artery without angina pectoris; I38 Endocarditis, valve unspecified; I15.2 Hypertension secondary to endocrine disorders; N18.6 End stage renal disease; Z99.2 Dependence on renal dialysis | CPT/HCPCS: 93005 ==

== ENCOUNTER → 2024-10-06 07:45 | Outpatient (BNVA) | payer OTHER, SELFPAY | PROVIDERS: PCP Nurse Practitioner Family; Visit Provider Student in an Organized Health Care Education/Training Program | DX: Z13.89 Encounter for screening for other disorder (principal) | CPT/HCPCS: 82947 ==

== ENCOUNTER 2024-10-11 07:37 | Outpatient (AMB) | payer OTHER, SELFPAY ==
--- OUTSIDE RECORDS SUMMARY | 2024-10-09 20:00 | XMS_ITS ---
Author Name Ally Dodge Address [address] [place] [address] Phone [phone] Organization [facility] e, NA DOCUMENT DISCLAIMER Multiple document versions may exist, please be sure you review the latest version. The information in the [facility] Progress Note Document represents a providers documented clinical note containing certain health and medical information. It may not contain the complete medical history for the patient and should be independently verified. The represented time in the document is Eastern Time PROVIDER ROUNDING NOTE BASIC Patient:?LEO?NIXON,?1970,?54y,?F Dialysis?Location:?[facility] Attending?Drilling Machine Runner:?Bobby Service?Date:?10/10/2024 Service?Provider:?Ally?Echo,?[employer] I?met?face?to?face?with?the?patient?today. OVERVIEW The?patient?presented?with?ESRD?on?dialysis Primary?cause?of?renal?failure:?Hypertensive?chronic?kidney? disease?with?stage?1?through?stage?4?chronic?kidney?dis ease,?or?unspecified?chronic?kidney?disease DIALYSIS?PRESCRIPTION ??IHD?3x?Week?Start?date:?09/23/24 ??Dialyzer:?160NRe?Optiflux ??BFR:?350 ??DFR:?Manual?800 ??Potassium:?2.0 ??Sodium:?137 ??EDW:?72 ??Duration:?3:30 ??Calcium:?2.50 ??Bicarb:?35 ??Rx?updated?on:?09/23/2024 TREATMENT?ASSESSMENT BP?Stand?Pre ??10/07/2024:?170/86 ??10/05/2024:?164/75 ??10/03/2024:?145/66 BP?Sit?Pre ??10/07/2024:?187/66 ??10/05/2024:?164/75 ??10/03/2024:?162/77 BP?Stand?Post ??10/07/2024:?130/65 ??10/05/2024:?133/65 ??10/03/2024:?159/77 BP?Sit?Post ??10/07/2024:?189/81 ??10/05/2024:?149/73 ??10/03/2024:?179/87 Tx?Duration ??10/07/2024:?3:25 ??10/05/2024:?3:31 ??10/03/2024:?3:25 Missed?Treatments 0?-?last?30?days 0?-?last?60?days FLUID?ASSESSMENT EDW?(kg) ??10/07/2024:?72.0 ??10/05/2024:?72.0 ??10/03/2024:?72.0 Weight?Pre?(kg) ??10/07/2024:?73.4 ??10/05/2024:?73.4 ??10/03/2024:?73.8 Weight?Post?(kg) ??10/07/2024:?71.8 ??10/05/2024:?71.4 ??10/03/2024:?72.2 PWV?(kg) ??10/07/2024:?-0.2 ??10/05/2024:?-0.6 ??10/03/2024:?0.2 UF?Rate?(mL/kg/hr) ??10/07/2024:?6.5 ??10/05/2024:?8 ??10/03/2024:?6.5 ADEQUACY?ASSESSMENT spKt/V,?URR ??09/28/2024:?1.63,?75.0 ??08/31/2024:?1.46,?72.0 ??08/03/2024:?1.85,?79.0 ACCESS?ASSESSMENT ??Access?Type:?AVFistula ??Access?SubType:?Standard ??Access?Status:?Active?(In?Use)?-?07/13/2024 ??Access?Location:?Right?Upper?Arm ??Created:?--/--/---- Flow ??08/29/2024:?1808 ANEMIA?ASSESSMENT HGB ??10/05/2024:?11.6 ??09/28/2024:?11.5 ??09/21/2024:?11.4 ?? Ferritin ??09/14/2024:?951.0 ??08/17/2024:?826.0 ??07/18/2024:?1170.0 Mircera,?IVP?(mcg) ??09/07/2024:?75 ??08/26/2024:?75 ??08/10/2024:?75 Iron?Sucrose?(Venofer)?(mg) ??09/28/2024:?50 ??09/21/2024:?50 ??09/14/2024:?50 BMM?ASSESSMENT PTH,?Intact ??09/14/2024:?421.0 ??08/17/2024:?339.0 ??07/18/2024:?276.0 ?? Calcium,?Phosphorus ??09/14/2024:?8.1,?4.4 ??08/17/2024:?8.1,?4.8 ??07/18/2024:?8.3,?4.6 Vitamin?D?(Calcitriol)?Oral?(mcg) ??10/07/2024:?0.5 ??10/05/2024:?0.5 ??10/03/2024:?0.5 NUTRITION?ASSESSMENT Potassium,?Albumin ??09/14/2024:?5.2,?3.5 ??08/29/2024:?4.7,?- ??08/22/2024:?4.4,?- ?? eNPCR ??09/28/2024:?0.69 ??08/31/2024:?0.49 ??08/03/2024:?0.7 DIAGNOSIS Chief?Complaint:?N18.6?End?stage?renal?disease Comments:?Patient?seen?and?examined.?VSS?with?no?complaints& #160;to?offer.?S1,?S2,?RRR.?LS?CTA?bilaterally.?Access?patent.? Patient?is?stable. Patient?data?updated?10/10/2024?at?7:56?AM Signed?By:?Echo,?Ally,?[employer]CH[employer]??on?10/10/2024?7:56:27?AM END OF DOCUMENT
--- OUTSIDE RECORDS SUMMARY | 2024-10-11 07:40 | XMS_ITS | Encounter Summary ---
Author Organization [facility], Address [address] [place] [address] Phone Care Team Providers Care Personnel Assistant Name Role Phone Simone Guerra MD Primary Care Provider [phone] Encounter Details Date Type Department Care Team (Late st Contact Info) Description 10/10/2024 Treatment [facility], [address] [place] [phone] Ally Dodge, [place] [address] [place] [phone] End stage renal disease; Dependence on renal [...] Dialysis Note - Ally Dodge APRN - 10/10/2024 12:00 AM EDT Patient: AMANDA JIM, 1970, 54y, F Dialysis Location: [facility] Attending Assistant City Attorney: Shahab Weinberg Service Date: 10/10/2024 Service Provider: Ally Dodge NP I met face to face with the patient today. OVERVIEW The patient presented with ESRD on dialysis Primary cause of renal failure: Hypertensive chronic kidney disease with stage 1 through stage 4 chronic kidney disease, or unspecified chronic kidney disease DIALYSIS PRESCRIPTION IHD 3x Week Start date: 09/23/24 Dialyzer: 160NRe Optiflux BFR: 350 DFR: Manual 800 Potassium: 2.0 Sodium: 137 EDW: 72 Duration: 3:30 Calcium: 2.50 Bicarb: 35 Rx updated on: 09/23/2024 TREATMENT ASSESSMENT BP Stand Pre 10/07/2024: 170/86 10/05/2024: 164/75 10/03/2024: 145/66 BP Sit Pre 10/07/2024: 187/66 10/05/2024: 164/75 10/03/2024: 162/77 BP Stand Post 10/07/2024: 130/65 10/05/2024: 133/65 10/03/2024: 159/77 BP Sit Post 10/07/2024: 189/81 10/05/2024: 149/73 10/03/2024: 179/87 Tx Duration 10/07/2024: 3:25 10/05/2024: 3:31 10/03/2024: 3:25 Missed Treatments 0 - last 30 days 0 - last 60 days FLUID ASSESSMENT EDW (kg) 10/07/2024: 72.0 10/05/2024: 72.0 10/03/2024: 72.0 Weight Pre (kg) 10/07/2024: 73.4 10/05/2024: 73.4 10/03/2024: 73.8 Weight Post (kg) 10/07/2024: 71.8 10/05/2024: 71.4 10/03/2024: 72.2 PWV (kg) 10/07/2024: -0.2 10/05/2024: -0.6 10/03/2024: 0.2 UF Rate (mL/kg/hr) 10/07/2024: 6.5 10/05/2024: 8 10/03/2024: 6.5 ADEQUACY ASSESSMENT spKt/V, URR 09/28/2024: 1.63, 75.0 08/31/2024: 1.46, 72.0 08/03/2024: 1.85, 79.0 ACCESS ASSESSMENT Access Type: AVFistula Access SubType: Standard Access Status: Active (In Use) - 07/13/2024 Access Location: Right Upper Arm Created: --/--/---- Flow 08/29/2024: 1808 ANEMIA ASSESSMENT HGB 10/05/2024: 11.6 09/28/2024: 11.5 09/21/2024: 11.4 Ferritin 09/14/2024: 951.0 08/17/2024: 826.0 07/18/2024: 1170.0 Mircera, IVP (mcg) 09/07/2024: 75 08/26/2024: 75 08/10/2024: 75 Iron Sucrose (Venofer) (mg) 09/28/2024: 50 09/21/2024: 50 09/14/2024: 50 BMM ASSESSMENT PTH, Intact 09/14/2024: 421.0 08/17/2024: 339.0 07/18/2024: 276.0 Calcium, Phosphorus 09/14/2024: 8.1, 4.4 08/17/2024: 8.1, 4.8 07/18/2024: 8.3, 4.6 Vitamin D (Calcitriol) Oral (mcg) 10/07/2024: 0.5 10/05/2024: 0.5 10/03/2024: 0.5 NUTRITION ASSESSMENT Potassium, Albumin 09/14/2024: 5.2, 3.5 08/29/2024: 4.7, - 08/22/2024: 4.4, - eNPCR 09/28/2024: 0.69 08/31/2024: 0.49 08/03/2024: 0.7 DIAGNOSIS Chief Complaint: N18.6 End stage renal disease Comments: Patient seen and examined. VSS with no complaints to offer. S1, S2, RRR. LS CTA bilaterally. Access patent. Patient is stable. Patient data updated 10/10/2024 at 7:56 AM Signed By: Ally Dodge NP on 10/10/2024 7:56:27 AM documented in this encounter Plan of Treatment Not on file documented as of this encounter Visit Diagnoses Diagnosis End stage renal disease Dependence on renal dialysis documented in this encounter Care Teams Personnel Assistant Relationship Specialty Start Date End Date Simone Guerra MD [address] [facility] [address] [place] [address] PCP - General Family Medicine 08/09/24 documented as of this encounter
--- OUTSIDE RECORDS SUMMARY | 2024-10-11 07:40 | XMS_ITS ---
Author Name Dulce, [facility] Address [address] [place] [id number] Phone [phone] Organization [facility] e, NA DOCUMENT DISCLAIMER Multiple document versions may exist, please be sure you review the latest version. The information in the [facility] Continuity of Care Document represents a summary of certain health and medical information. It may not contain the complete medical history for the patient and should be independently verified. The represented time in the document is Eastern Time. PROBLEMS Problem Code Status Onset Date Encounter for immunization Z23 Active J 2024 Iron deficiency anemia, unspecified D50.9 Activ e August 19, 2024 Anemia in other chronic diseases classified elsewhere D63.8 Active July 20, 2024 Shortness of breath R06.02 Active June Encounter for screening for respiratory tuberculosis Z 11.1 Active July 18, 2024 Coagulation defect, unspecified D68.9 Active July 18, 2024 End stage renal disease N18.6 Active Apri l 2024 Atherosclerotic heart diseas e of [place] coronary artery without angina pectoris I25.10 Active July 13, 2024 Chronic kidney disease, unspecified N18.9 Activ e July 13, 2024 Hypothyroidism, unspecified E03.9 Active July 13, 2024 Type 2 diabetes mellitus wit h diabetic chronic kidney disease E11.22 Active July 13, 2024 Hypertensive chronic kidney disease with stage 1 through stage 4 chronic kidney disease, or unspecified chronic kidney disease I12.9 Active July 13, 2024 Dependence on renal dialysis Z99.2 Active July 13, 2024 [employer] container [employer] (current) use of anticoagulants Z79.01 Active July 13, 2024 ALLERGIES AND ADVERSE REACTIONS No Known Allergies SOCIAL HISTORY Tobacco Use Status Tobacco Type Unknown if ever consumed tobacco - Caregiver Characteristics No Information Available Characteristics of Home environment No Information Available Gender and Sex Information Gender Identity Sexual Orientation Female Heterosexual MEDICATIONS Prescribed Medications for Dialysis Treatments Medication Instructions Dosage Route Start Date End Date Status Clonidine HCl PRN-may repeat x1 0.2 mg Oral September 14, 2024 September 13, 2025 Active Vitamin D (Calcitriol) Oral Every Treatment 0.5 mcg Oral September 19, 2024 September 18, 2025 Active Clonidine HCl Once 0.1 mg Oral September 14, 2024 Discontinued Iron Sucrose (Venofer) 1X Week 50 mg Intravenous - push September 07, 2024 September 06, 2025 Discontinued Vitamin D (Calcitriol) Oral Every Treatment 0.25 mcg Oral August 22, 2024 August 21, 2025 Discontinued Vitamin D (Calcitriol) Oral Once 0.25 mcg Oral September 16, 2024 Discontinued Home Medications Medication Instructions Dosage Route Start Date End Date [facility] calcium carbonate 500 mg calcium (1,250 mg) Take by mouth every night 2 tablet ORAL October 10, 2024 Active cefixime 200 Take by mouth as directed 1 tablet by mouth July 22, 2024 Active chlorpheniramine maleate 4 mg Take by mouth once a day as needed 1 tablet ORAL July 22, 2024 Active clonidine HCl 0.2 mg Take by mouth three times a day 1 tablet ORAL September 23, 2024 Active ketorolac 10 mg Take by mouth as needed 1 tablet ORAL July 22, 2024 Active losartan 100 mg Take by mouth once a day 1 tablet ORAL July 25, 2024 Active mebeverine hydrochlorid 135/5 Take by mouth as directed 1 tablet by mouth July 22, 2024 Active nifedipine 30 mg Take by mouth once a day 1 tablet ORAL July 25, 2024 Active ondansetron HCl 4 mg Take by mouth once a day as needed 1 tablet ORAL July 22, 2024 Active tramadol-acetaminophen 37.5-325 mg Take by mouth every six to eight hours as needed 1 tablet ORAL July 22, 2024 Active Tylenol 325 mg Take by mouth every six to eight hours as needed for pain 2 tablet ORAL July 22, 2024 Active VITAL SIGNS Post-Treatment Vital Signs Vital Sign Value Date / Time Blood Pressure-sitting 133/60 mmHg October 10, 2024 06:49 AM Blood Pressure-standing 103/52 mmHg October 10, 2024 06:49 AM Heart Rate 89 beats per minute October 10 06:49 AM Respiratory Rate 16 breaths per minute October 10, 2024 06:49 AM Temperature 98.1 deg. F October 10, 2024 06 :49 AM Weight Vital Sign Value Date / Time Estimated Dry Weight 72 kg September 23 11:59 PM Pre-Dialysis 74.20 kg October 10, 2024 06 :49 AM Post-Dialysis 71.50 kg October 10, 2024 06 :49 AM Other Other Value Date / Time Height 160 cm August 12, 2024 12: 00 AM Body Mass Index 28.13 kg/m2 October 10, 2024 04 :06 PM LAB RESULTS Hematology Result Type Result Value Relevant Referen ce Range Interpretation Date WBC (No Diff) 12.13 1000/mcL 4.80 - 10.80 1000/mcL High July 18, 2024 MCH 29.2 pg 27.0 - 31.0 pg - July 18, 2024 MCHC 30.8 g/dL 30.0 - 36.0 g/dL - June RDW 15.0 % 11.5 - 14.5 % High July 18 025 TIBC (Calc) 188 mcg/dL 185 - 515 mcg/dL - June 292024 UIBC/TIBC 139 mcg/dL 155 - 355 mcg/dL Low June Ferritin 1170 ng/mL 10 - 291 ng/mL High July 18, 2024 Transferrin Sat. (Calc) 26 % 20 - 55 % - July 18, 2024 Iron 49 mcg/dL 30 - 160 mcg/dL - July 18, 2024 Hemoglobin x 3 29.4 % 36.0 - 48.0 % Low June 292024 Platelets 302 1000/mcL 130 - 400 1000/mcL - Apri l 2024 Hemoglobin x 3 30.9 % 36.0 - 48.0 % Low June 302024 Hemoglobin x 3 29.1 % 36.0 - 48.0 % Low August 03, 2024 Hemoglobin x 3 30 % 36.0 - 48.0 % Low August 10, 2024 Hemoglobin x 3 28.8 % 36.0 - 48.0 % Low August 17, 2024 Transferrin Sat. (Calc) 25 % 20 - 55 % - August 17, 2024 Iron 50 mcg/dL 30 - 160 mcg/dL - August 17 025 UIBC/TIBC 147 mcg/dL 155 - 355 mcg/dL Low August 17, 2024 TIBC (Calc) 197 mcg/dL 185 - 515 mcg/dL - August 17, 2024 Ferritin 826 ng/mL 10 - 291 ng/mL High August 17 Hemoglobin x 3 29.1 % 36.0 - 48.0 % Low August 24, 2024 Hemoglobin x 3 30 % 36.0 - 48.0 % Low August Hemoglobin x 3 28.8 % 36.0 - 48.0 % Low August TIBC (Calc) 202 mcg/dL 185 - 515 mcg/dL - August UIBC/TIBC 142 mcg/dL 155 - 355 mcg/dL Low September 14, 2024 Iron 60 mcg/dL 30 - 160 mcg/dL - September 14, 2024 Transferrin Sat. (Calc) 30 % 20 - 55 % - September 14, 2024 Ferritin 951 ng/mL 10 - 291 ng/mL High September 14 HGB 10.6 g/dL 12.0 - 16.0 g/dL Low September 14, 2024 Hemoglobin x 3 31.8 % 36.0 - 48.0 % Low August HGB 11.4 g/dL 12.0 - 16.0 g/dL Low September 21, 2024 Hemoglobin x 3 34.2 % 36.0 - 48.0 % Low August Hemoglobin x 3 34.5 % 36.0 - 48.0 % Low September HGB 11.5 g/dL 12.0 - 16.0 g/dL Low September 28, 2024 HGB 11.6 g/dL 12.0 - 16.0 g/dL Low October 05, 2024 Hemoglobin x 3 34.8 % 36.0 - 48.0 % Low September Metabolic/Renal Result Type Result Value Relevant Reference Range Interpre tation Date Chloride 101 mEq/L 96 - 108 mEq/L - July 18, 2024 Potassium 5.4 mEq/L 3.5 - 5.1 mEq/L High July 18, 2024 Sodium 136 mEq/L 136 - 145 mEq/L - July 18, 2024 BUN 40 mg/dL 6 - 19 mg/dL High July 18 BUN/Creat Ratio 6.6 10.0 - 20.0 Low June Creatinine, Serum 6.05 mg/dL 0.60 - 1.30 mg/dL High July 18, 2024 Bicarbonate 18 mEq/L 22 - 29 mEq/L Low July 18, 2024 BUN 33 mg/dL 6 - 19 mg/dL High July 22 BUN, Post 11 mg/dL 6 - 19 mg/dL - July 22 URR, Calc 67 % 65 - 80 % - July 22, 2024 Potassium 5.2 mEq/L 3.5 - 5.1 mEq/L High August 01, 025 BUN 34 mg/dL 6 - 19 mg/dL High August 03, 2024 URR, Calc 79 % 65 - 80 % - August 03, 2024 BUN, Post 7 mg/dL 6 - 19 mg/dL - August 03, 2024 Potassium 4.6 mEq/L 3.5 - 5.1 mEq/L - August 08, 2 025 Potassium 5.0 mEq/L 3.5 - 5.1 mEq/L - August 15, 2 025 Bicarbonate 23 mEq/L 22 - 29 mEq/L - August 17 Sodium 137 mEq/L 136 - 145 mEq/L - August 17, 025 Potassium 4.8 mEq/L 3.5 - 5.1 mEq/L - August 17, 025 Chloride 101 mEq/L 96 - 108 mEq/L - August 17 BUN 25 mg/dL 6 - 19 mg/dL High August 17, 2024 Creatinine, Serum 4.39 mg/dL 0.60 - 1.30 mg/dL High August 17, 2024 BUN/Creat Ratio 5.7 10.0 - 20.0 Low August 17, 2024 Potassium 4.4 mEq/L 3.5 - 5.1 mEq/L - August 22, 2 025 Potassium 4.7 mEq/L 3.5 - 5.1 mEq/L - August 29, 2024 BUN 25 mg/dL 6 - 19 mg/dL High August 31 BUN, Post 7 mg/dL 6 - 19 mg/dL - August 31 URR, Calc 72 % 65 - 80 % - August 31, 2024 Bicarbonate 24 mEq/L 22 - 29 mEq/L - September 14, 025 Creatinine, Serum 4.45 mg/dL 0.60 - 1.30 mg/dL High September 14, 2024 BUN 30 mg/dL 6 - 19 mg/dL High September 14 Sodium 139 mEq/L 136 - 145 mEq/L - September 14, 2024 BUN/Creat Ratio 6.7 10.0 - 20.0 Low September 14, 2024 Potassium 5.2 mEq/L 3.5 - 5.1 mEq/L High September 14, 2024 Chloride 102 mEq/L 96 - 108 mEq/L - September 14, 025 BUN 36 mg/dL 6 - 19 mg/dL High September 28 URR, Calc 75 % 65 - 80 % - September 28, 2024 BUN, Post 9 mg/dL 6 - 19 mg/dL - September 28 HD Adequacy Result Type Result Value Relevant Referen ce Range Interpretation Date wstdKt/V 2.2 No Reference Ran ge Provided - July 22, 2024 spKt/V Gotch 1.34 No Reference Ran ge Provided - July 22, 2024 Krt/V 0.00 No Reference Ran ge Provided - July 22, 2024 wstdKt/V without residual 2.2 No Reference Range Provided - July 22, 2024 eKt/V ([place]) 1.10 No Reference Range Provided - July 22, 2024 wstdKt/V, residual 0.0 No Reference Range Provided - July 22, 2024 spKt/V (Daugirdas II) 1.28 No Referen ce Range Provided - July 22, 2024 spKt/V Gotch 1.93 No Reference Ran ge Provided - August 03, 2024 wstdKt/V without residual 2.6 No Reference Range Provided - August 03, 2024 wstdKt/V 2.6 No Reference Ran ge Provided - August 03, 2024 eKt/V ([place]) 1.59 No Reference Range Provided - August 03, 2024 Krt/V 0.00 No Reference Ran ge Provided - August 03, 2024 wstdKt/V, residual 0.0 No Reference Range Provided - August 03, 2024 spKt/V ([place]ird[place] II) 1.85 No Referen ce Range Provided - August 03, 2024 eKt/V ([place]) 1.25 No Reference Range Provided - August 31, 2024 spKt/V Gotch 1.48 No Reference Ran ge Provided - August 31, 2024 wstdKt/V, residual 0.0 No Reference Range Provided - August 31, 2024 Krt/V 0.00 No Reference Ran ge Provided - August 31, 2024 wstdKt/V 2.4 No Reference Ran ge Provided - August 31, 2024 wstdKt/V without residual 2.4 No Reference Range Provided - August 31, 2024 spKt/V ([place]ird[place] II) 1.46 No Referen ce Range Provided - August 31, 2024 wstdKt/V 2.5 No Reference Ran ge Provided - September 28, 2024 Krt/V 0.00 No Reference Ran ge Provided - September 28, 2024 wstdKt/V without residual 2.5 No Reference Range Provided - September 28, 2024 spKt/V Gotch 1.70 No Reference Ran ge Provided - September 28, 2024 wstdKt/V, residual 0.0 No Reference Range Provided - September 28, 2024 eKt/V ([place]) 1.40 No Reference Range Provided - September 28, 2024 spKt/V (Daugirdas II) 1.63 No Referen ce Range Provided - September 28, 2024 Bone/Mineral Result Type Result Value Relevant Referen ce Range Interpretation Date PTH-Intact, Plasma 276 pg/mL 16 - 80 pg/mL High Jun Vitamin D 25 Hydroxy 33.4 ng/mL 30.0 - 100.0 ng/mL - July 18, 2024 Corrected Ca x P Product 39 0 - 54 - July 18, 2024 Magnesium 2.1 mg/dL 1.6 - 2.6 mg/dL - July 18, 2024 Ca x P Product 38 0 - 54 - July 18, 2024 Phosphorus 4.6 mg/dL 2.6 - 4.5 mg/dL High July 18, 2024 Alkaline Phosphatase 81 U/L 35 - 104 U/L - Ap ril 2024 Calcium, Total 8.3 mg/dL 8.4 - 10.2 mg/dL Low Apri l 2024 Calcium, Total 8.1 mg/dL 8.4 - 10.2 mg/dL Low August 17, 2024 Phosphorus 4.8 mg/dL 2.6 - 4.5 mg/dL High August 17 025 Ca x P Product 39 0 - 54 - August 17 Magnesium 2.0 mg/dL 1.6 - 2.6 mg/dL - August 17 025 Corrected Ca x P Product 40 0 - 54 - August 17, 2024 PTH-Intact, Plasma 339 pg/mL 16 - 80 pg/mL High August 17, 2024 Ca x P Product 36 0 - 54 - September 14 025 Phosphorus 4.4 mg/dL 2.6 - 4.5 mg/dL - September 14, 2024 Calcium, Total 8.1 mg/dL 8.4 - 10.2 mg/dL Low September 14, 2024 Magnesium 2.0 mg/dL 1.6 - 2.6 mg/dL - September 14, 2024 PTH-Intact, Plasma 421 pg/mL 16 - 80 pg/mL High Aug Corrected Ca x P Product 37 0 - 54 - September 14, 2024 Liver/Nutrition Result Type Result Value Relevant Reference Range Interpre tation Date Glucose 281 mg/dL 70 - 100 mg/dL High July 18, 2024 SGPT (ALT) 11 U/L 7 - 52 U/L - July 18, 2024 Albumin (BCG) 3.7 g/dL 3.5 - 5.2 g/dL - June 292024 LDH 224 U/L 118 - 273 U/L - July 18 025 SGOT (AST) 9 U/L 13 - 39 U/L Low July 18 eNPCR 0.61 No Reference Range Provided - July 22, 2024 eNPCR 0.70 No Reference Range Provided - August 03, 2024 Glucose 217 mg/dL 70 - 100 mg/dL High August 17 Albumin (BCG) 3.6 g/dL 3.5 - 5.2 g/dL - August 17, 2024 eNPCR 0.49 No Reference Range Provided - August 31, 2024 Glucose 234 mg/dL 70 - 100 mg/dL High September 14 Albumin (BCG) 3.5 g/dL 3.5 - 5.2 g/dL - August eNPCR 0.69 No Reference Range Provided - September 28, 2024 Lipid Result Type Result Value Relevant Referen ce Range Interpretation Date Cholesterol HDL Ratio 4.6 0.0 - 4.5 High Apr il 2024 LDL, (Calculated) 56 mg/dL 0 - 99 mg/dL - July 18, 2024 Triglycerides 225 mg/dL 0 - 149 mg/dL High June VLDL (Calculated) 45 mg/dL 10 - 30 mg/dL High Apri l 2024 HDL 28 mg/dL No Reference Ran ge Provided - July 18, 2024 Cholesterol, Total 129 mg/dL 0 - 199 mg/dL - Jun Immunochemistry Result Type Result Value Relevant Reference Range Interpre tation Date HCV s/co ratio 0.06 0.00 - 0.79 - July 18, 2024 Endocrinology/Thyroid Result Type Result Value Relevant Referen ce Range Interpretation Date TSH 3rd Generation 5.137 mIU/L 0.300 - 3.000 mIU/L High July 18, 2024 TSH 3rd Generation 6.128 mIU/L 0.300 - 3.000 mIU/L High August 17, 2024 TSH 3rd Generation 5.624 mIU/L 0.300 - 3.000 mIU/L High September 14, 2024 Trace Elements Result Type Result Value Relevant Reference Range Interpre tation Date Aluminum < 5 mcg/L 0 - 10 mcg/L - July 18 Infectious Diseases Result Type Result Value Relevant Referen ce Range Interpretation Date Hep B core Ab Total (anti-HBc) Negative No Reference Range Provided - July 18, 2024 Hep B Surface Ab (anti-HBs) 184 mIU/mL No Reference Range Provided - July 18, 2024 HCV Ab (anti-HCV) Nonreactive No Reference R ernesto Provided - July 18, 2024 Hep B Surface Ag (HBsAg) Negative No Reference Range Provided - September 14, 2024 DIALYSIS PRESCRIPTION Conventional Hemodialysis Data Element Value Order Date/Time September 23, 2024 Frequency 3X Week Treatment Days MonWedFri Dialyzer [id number] Optiflux Treatment Time (Total Minutes) 210 min Blood Flow Rate (mL/min) 350 mL/min Dialysate Flow Rate Manual 800 Estimated Dry Weight 72 kg Dialysate Concentrate 2.0 K, 2.50 Ca, 1. 0 Mg, 100 Dextrose ([id number]) Sodium (mEq/L) 137 mEq/L Bicarb Machine Setting (mEq/L) 35 mEq/L Dialysis Access Hemodialysis-AV Fist tomasz-Standard, Right Upper Arm, Other/Unknown Arterial Needle Size 16g1 Venous Needle Size 16g1 IMMUNIZATIONS Vaccine Date Dose Route Status PREVNAR September 09, 2024 0.5 mL Intramuscular Complete d TRANSPLANT WAITLIST STATUS No Information on Transplant Waitlist Status ADVANCE DIRECTIVES Directive Description Ordered By Effective Date Resuscitation status Full Code Shahab Almarazn Jul 18, 2024 DIALYSIS TREATMENTS Conventional Hemodialysis Date Pre-Treatment Vitals Post-Treatment Maria Guadalupe ls Duration (hr) BFR (mL/min) Dialysate Dialyzer Dialysis Access Meds Admin October 05, 2024 Weight 73.40 kg Weight 71.40 kg 03:31:00 350 2.0 K, 2.50 Ca, 1.0 Mg, 100 Dextrose ([id number]) 160nre Optifl ux Blood Pressure-sitting 164/75 mmHg Blood Pressure-sit ting 149/73 mmHg Blood Pressure-standing 164/75 mmHg Blood Pressure-st anding 133/65 mmHg Heart Rate 96 beats per minute Heart Rate 90 beats per minute Respiratory Rate 18 breaths per minute Respiratory Rate 17 breaths per minute Temperature 97.0 deg. F Temperature 96.9 deg. F October 07, 2024 Weight 73.40 kg Weight 71.80 kg 03:25:00 360 2.0 K, 2.50 Ca, 1.0 Mg, 100 Dextrose ([id number]) 160nre Optiflux Hemodialysis-AV Fistula-Standard, Right Upper Arm, Other/Unknown Vitamin D (Calcitriol) Oral; 0.5mcg,Oral Blood Pressure-sitting 187/66 mmHg Blood Pressure-sit ting 189/81 mmHg Blood Pressure-standing 170/86 mmHg Blood Pressure-st anding 130/65 mmHg Heart Rate 93 beats per minute Heart Rate 88 beats per minute Respiratory Rate 16 breaths per minute Respiratory Rate 16 breaths per minute Temperature 97.4 deg. F Temperature 97.7 deg. F October 10, 2024 Weight 74.20 kg Weight 71.50 kg 03:17:00 350 2.0 K, 2.50 Ca, 1.0 Mg, 100 Dextrose ([id number]) 160nre Optiflux Hemodialysis-AV Fistula-Standard, Right Upper Arm, Other/Unknown Vitamin D (Calcitriol) Oral; 0.5mcg,Oral Blood Pressure-sitting 171/76 mmHg Blood Pressure-sit ting 133/60 mmHg Blood Pressure-standing 145/67 mmHg Blood Pressure-st anding 103/52 mmHg Heart Rate 92 beats per minute Heart Rate 89 beats per minute Respiratory Rate 16 breaths per minute Respiratory Rate 16 breaths per minute Temperature 97.6 deg. F Temperature 98.1 deg. F
[2024-10-11 07:43] VITALS: BP 110/44; PULSE 82; O2SAT 96; BMI 31.2
--- NOTE | 2024-10-11 07:43 | A.OFFVIS_ITS ---
Vital Signs 3 10/11/24 07:43 Height 5 ft Weight 160 lb BMI 31.2 BP 110/44 L Blood Pressure Location Lt brachial Position Sitting Pulse 82 Pulse Source Pulse Oximeter Pulse Oximetry (%) 96 Oxygen Delivery Method Room Air Intake Visit Reasons: Diabetes Type 2 Intake Note: Patient present today for Type 2 Diabetes Mellitus Last Diabetic eye exam: Last Podiatry Visit: Random Glucose: 206 mg/dl HgA1C: 7.9% 09/01/24 Churn Operator Required: Yes Churn Operator Language: Mallory Churn Operator Services: Churn Operator Offered & Declined Accompanied by: Daughter Allergies No Known Allergies Allergy (Verified 10/11/24 07:50) Medication List - Last Reconciled 10/11/24 by Rody Saavedra MD albuterol sulfate 2.5 mg (3 mL) inhalation Q4-6H PRN aspirin 81 mg PO DAILY atorvastatin 20 mg PO BEDTIME blood sugar diagnostic (FreeStyle Lite Strips) ONCE PER DAY blood-glucose meter (FreeStyle Lite Meter kit) ONCE PER DAY calcitriol 0.25 mcg PO 3XW clonidine HCl 0.2 mg PO BID hydrochlorothiazide 12.5 mg PO DAILY insulin glargine (Lantus U-100 Insulin) 5 units (0.05 mL) subcut DAILY 90 days lancets ONCE PER DAY levothyroxine 75 mcg PO DAILY linagliptin 5 mg PO DAILY losartan 100 mg PO DAILY nifedipine ER 30 mg PO DAILY ondansetron HCl 4 mg PO DAILY PRN pen needle, diabetic (Comfort EZ Pen [place]) As directed daily prazosin 5 mg PO BID repaglinide 0.5 mg PO TID torsemide 40 mg (2 x 20 mg) PO DAILY HPI Comments Details: 54-year-old female coming in today for initial evaluation of type 2 diabetes mellitus with long-term insulin use with complications of CKD on dialysis. Here today with daughter and History of diabetes moved here from [place] June 2024 Prior therapy: metformin but was discontinued when developed nephropathy Current regimen: Repaglinide 0.5 mg t.i.d. before meals Insulin Lantus 5 units at bedtime Insulin novolin R ( regular ) 5 units BID 15 mins after lunch and dinner Linagliptin 5 mg daily Endorses symptoms of hyperglycemia including polyphagia, polyuria, polydipsia. 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 Gunderson Macrovascular complications: No history of macrovascular complications. Statin:atorvatsatin 20 mg daily NGA/ARB: losaratan 100 mg daily Exercise: none Diet control: vegetarian diet Sugar in coffee No desserts He has never had any hospitalizations for hyperglycemia/hypoglycemia. Physical exam General: sitting comfortably in no acute distress HEENT: normocephalic/atraumatic, Neck: supple, symmetrical, no thyromegaly , Cardiac: normal heart sounds Pulm: normal breath sounds B/L, no added breath sounds Abd: not distended, no tenderness Extremities: no edema, no signs of myxedema Neuro: AAO x3, Speech: normal, no facial droop, moving all 4 extremities Skin: no rash Foot exam: intact sensation to monofilament, intact pulses, intact vibration Laboratory Tests 09/01/24 10/06/24 09:20 07:55 Glucose (Clinic) 208 H Hgb A1c (Clinic) 7.9 H PFSH Medical History (Updated 10/11/24 @ 08:06 by Rody Saavedra MD) Long-term insulin use Kidney disease GERD (gastroesophageal reflux disease) Liver disease Edema Spine disorder Surgical History No pertinent past surgical history Family History Mother HTN (hypertension) Diabetes Father HTN (hypertension) Sister Diabetes Brother Diabetes Social History Household Members: Family Both parents involved: No Caregiver staying overnight: No Housing: House Are you a primary care director rn to a significant other at home: No Do you presently have visiting nurse or other home services: No 75 years or older and lives alone: No Alcohol intake: never Patient Tobacco Use Status: Never used Tobacco e-Cigarette/Vaping Use: Never Used Second Hand Smoke Exposure: No Current occupational status: unemployed and disabled Cognitive needs: No Hearing needs: No Vision needs: No Assessment & Plan Assessment & Plan (1) Diabetes mellitus type 2 with complications: Code(s): E11.8 - Type 2 diabetes mellitus with unspecified complications Category: Medical Plan: 54-year-old female coming in today for initial evaluation of type 2 diabetes mellitus. With long-term insulin use with complications of ESRD on dialysis, neuropathy, retinopathy. A1c from August 2024 at 7.9%. She has been hyperglycemic with blood sugars ranging in the 200s to 300s per patient. Did not bring glucometer today. She moved in from a [facility] recently, and was started on dialysis in June 2024. I do not have a lot of information to go off today. But I do plan on discontinuing her repaglinide in the near future. She is taking Novolin regular insulin twice a day, I am going to switch this to lispro. Plan: -continue Lantus 5 units daily at bedtime -stopped Novolin regular -start insulin Humalog 5 units b.i.d. before lunch and dinner -continue Tradjenta -continue repaglinide for now, we will plan to discontinue it in the near future -podiatry referral placed -already has a ophthalmology referral, discussed importance of eye visits - hypoglycemia education done -discussed complications of uncontrolled hyperglycemia -advised 30 minutes of exercise 5 days a week (2) Long-term insulin use: Code(s): Z79.4 - equipment operator intermodal yard (current) use of insulin Category: Medical Plan: See above Plan I spent 60 minutes in reviewing the record, seeing the patient and documenting in the medical record. Orders: Orders 2 Creatinine Today E11.8 - Type 2 diabetes mellitus with unspecified complications Aspartate Amino Transferase Today E11.8 - Type 2 diabetes mellitus with unspecified complications Complete Blood Count no Diff Today E11.8 - Type 2 diabetes mellitus with unspecified complications Lipid Panel Today E11.8 - Type 2 diabetes mellitus with unspecified complications Alanine Aminotransferase Today E11.8 - Type 2 diabetes mellitus with unspecified complications Referrals 2 Podiatry Referral E11.8 - Type 2 diabetes mellitus with unspecified complications, Z79.4 - equipment operator intermodal yard (current) use of insulin Diabetes Education Referral E11.8 - Type 2 diabetes mellitus with unspecified complications, Z79.4 - longterm (current) use of insulin Medications: New 2 blood-glucose sensor (FreeStyle Keesha 3 Plus Sensor device) As directed every 15 days 6 ea 3RF E11.8 - Type 2 diabetes mellitus with unspecified complications, Z79.4 - equipment operator intermodal yard (current) use of insulin blood-glucose,superintendent division,cont (FreeStyle Keesha 3 [place]) As directed 1 ea 0RF E11.8 - Type 2 diabetes mellitus with unspecified complications, Z79.4 - longterm (current) use of insulin insulin lispro (Humalog KwikPen (U-100) Insulin) 5 units (0.05 mL) subcut BID 3 mL 5RF Changed 2 From pen needle, diabetic (Comfort EZ Pen [place]) As directed daily 100 ea 0RF To pen needle, diabetic (Comfort EZ Pen [place]) As directed to inject insulin 3 times a day 100 ea 4RF Refilled 2 insulin glargine (Lantus U-100 Insulin) 5 units (0.05 mL) subcut DAILY 4.5 mL 5RF 90 days linagliptin 5 mg PO DAILY 90 tabs 4RF Patient Instructions: Continue lantus 5 units daily Stop novolin Instead start insulin lispro ( Humalog) 5 units 15 mins before lunch and dinner continue Tradjenta 5 mg daily Continue Repgalinide as it is walk 30 mins 5 days a week Check your feet daily looking for any signs of infection, drainage, redness, ulceration and seek medical attention if this occurs. Break in shoes gradually and do not wear open-toed shoes or walk stocking footed or barefooted. Rule of 15 Treatment for Hypoglycemia (Low blood sugar) If your blood glucose is low (70 and below)*, follow the steps below to treat: Eat or drink something from the list below equal to 15 grams of carbohydrate (carb). Rest for 15 minutes Re-check your blood glucose. If it is still low, (below 70), repeat step 1 above. ? If your next meal is more than an hour away, you will need to eat one carbohydrate choice as a snack to keep your blood glucose from going low again. ?If you can't figure out why you have low blood glucose, call your healthcare provider, as your medicine may need to be adjusted. ?Always carry something with you to treat an insulin reaction. Use food from the list below. ? Foods equal to One Carbohydrate Choice (15 grams of carbohydrate): 3 Glucose ?tablets or 4 Dextrose tablets 4 ounces of fruit juice 5-6 ounces (about 1/2 can) of regular soda such as Coke or Pepsi ? 7-8 gummy or regular Life Savers ? 1 Tbsp. of sugar or jelly NOTE: If your blood sugar is less than 50, double the portion above for a total of 30 gm. ?Carbohydrate. ? Follow meal plan of 45-60 g of consistent carbohydrates at 3 meals each day and 15 g of carbohydrate at 1-2 snacks each day. Coding Level of Care Code New Pt Level 5 (80833) Complex EM visit Add On G2211 Diagnoses Diabetes mellitus type 2 with complications E11.8 Long-term insulin use Z79.4 Time Spent (min) 60
[2024-10-11 07:56] LABS: Glucose, Whole Blood 206 mg/dL (60-115)
== END 2024-10-11 08:36 | disposition home or self-care (01) ==
LOC: HO.ENCR 07:38
PROVIDERS: PCP Nurse Practitioner Family; Visit Provider Student in an Organized Health Care Education/Training Program
DX: E11.22 Type 2 diabetes mellitus with diabetic chronic kidney disease (principal); Z79.4 Long term (current) use of insulin; N18.6 End stage renal disease; Z99.2 Dependence on renal dialysis
CPT/HCPCS: 99205; G2211

== ENCOUNTER → 2024-10-11 07:37 | Outpatient (BNVA) | payer OTHER, SELFPAY | PROVIDERS: PCP Nurse Practitioner Family; Visit Provider Student in an Organized Health Care Education/Training Program | DX: E11.8 Type 2 diabetes mellitus with unspecified complications (principal) | CPT/HCPCS: 82947 ==

== ENCOUNTER → 2024-10-20 07:55 | Outpatient (REF) | payer OTHER, SELFPAY ==
--- OUTSIDE RECORDS SUMMARY | 2024-10-16 20:00 | XMS_ITS ---
Author Name Ally Dodge Address [address] [place] [id number] Phone [phone] Organization [facility] e, NA DOCUMENT DISCLAIMER Multiple document versions may exist, please be sure you review the latest version. The information in the [facility] Progress Note Document represents a providers documented clinical note containing certain health and medical information. It may not contain the complete medical history for the patient and should be independently verified. The represented time in the document is Eastern Time PROVIDER ROUNDING NOTE BASIC Patient:?LEO?NIXON,?1970,?54y,?F Dialysis?Location:?[facility] Attending?[employer] Boatswain'S Mate:?Bobby Service?Date:?10/17/2024 Service?Provider:?Ally?Echo,?RETAIL BANKER I?met?face?to?face?with?the?patient?today. OVERVIEW The?patient?presented?with?ESRD?on?dialysis Primary?cause?of?renal?failure:?Hypertensive?chronic?kidney? disease?with?stage?1?through?stage?4?chronic?kidney?dis ease,?or?unspecified?chronic?kidney?disease DIALYSIS?PRESCRIPTION ??IHD?3x?Week?Start?date:?09/23/24 ??Dialyzer:?160NRe?Optiflux ??BFR:?350 ??DFR:?Manual?800 ??Potassium:?2.0 ??Sodium:?137 ??EDW:?72 ??Duration:?3:30 ??Calcium:?2.50 ??Bicarb:?35 ??Rx?updated?on:?09/23/2024 TREATMENT?ASSESSMENT BP?Stand?Pre ??10/14/2024:?115/54 ??10/12/2024:?151/71 ??10/10/2024:?145/67 BP?Sit?Pre ??10/14/2024:?166/76 ??10/12/2024:?167/84 ??10/10/2024:?171/76 BP?Stand?Post ??10/14/2024:?141/62 ??10/12/2024:?141/61 ??10/10/2024:?103/52 BP?Sit?Post ??10/14/2024:?131/107 ??10/12/2024:?160/75 ??10/10/2024:?133/60 Tx?Duration ??10/14/2024:?3:36 ??10/12/2024:?3:31 ??10/10/2024:?3:17 Missed?Treatments 0?-?last?30?days 0?-?last?60?days FLUID?ASSESSMENT EDW?(kg) ??10/14/2024:?72.0 ??10/12/2024:?72.0 ??10/10/2024:?72.0 Weight?Pre?(kg) ??10/14/2024:?73.3 ??10/12/2024:?73.9 ??10/10/2024:?74.2 Weight?Post?(kg) ??10/14/2024:?72.2 ??10/12/2024:?72.0 ??10/10/2024:?71.5 PWV?(kg) ??10/14/2024:?0.2 ??10/12/2024:?0.0 ??10/10/2024:?-0.5 UF?Rate?(mL/kg/hr) ??10/14/2024:?4.2 ??10/12/2024:?7.5 ??10/10/2024:?11.5 ADEQUACY?ASSESSMENT spKt/V,?URR ??09/28/2024:?1.63,?75.0 ??08/31/2024:?1.46,?72.0 ??08/03/2024:?1.85,?79.0 ACCESS?ASSESSMENT ??Access?Type:?AVFistula ??Access?SubType:?Standard ??Access?Status:?Active?(In?Use)?-?07/13/2024 ??Access?Location:?Right?Upper?Arm ??Created:?--/--/---- Flow ??10/17/2024:?1009 ??08/29/2024:?1808 ANEMIA?ASSESSMENT HGB,?TSAT ??10/12/2024:?11.3,?29.0 ??10/05/2024:?11.6,?- ??09/28/2024:?11.5,?- ?? Ferritin ??10/12/2024:?1276.0 ??09/14/2024:?951.0 ??08/17/2024:?826.0 Mircera,?IVP?(mcg) ??09/07/2024:?75 ??08/26/2024:?75 ??08/10/2024:?75 Iron?Sucrose?(Venofer)?(mg) ??09/28/2024:?50 ??09/21/2024:?50 ??09/14/2024:?50 BMM?ASSESSMENT PTH,?Intact ??10/12/2024:?271.0 ??09/14/2024:?421.0 ??08/17/2024:?339.0 ?? Calcium,?Phosphorus ??10/12/2024:?8.9,?6.8 ??09/14/2024:?8.1,?4.4 ??08/17/2024:?8.1,?4.8 Vitamin?D?(Calcitriol)?Oral?(mcg) ??10/14/2024:?0.5 ??10/12/2024:?0.5 ??10/10/2024:?0.5 NUTRITION?ASSESSMENT Potassium,?Albumin ??10/12/2024:?5.7,?3.6 ??09/14/2024:?5.2,?3.5 ??08/29/2024:?4.7,?- ?? eNPCR ??09/28/2024:?0.69 ??08/31/2024:?0.49 ??08/03/2024:?0.7 DIAGNOSIS Chief?Complaint:?N18.6?End?stage?renal?disease Comments:?Patient?seen?and?examined.?VSS?with?no?complaints& #160;to?offer.?S1,?S2,?RRR.?LS?CTA?bilaterally.?Access?patent.? Patient?is?stable. Patient?data?updated?10/17/2024?at?8:11?AM Signed?By:?Echo,?Ally,?RETAIL BANKER??on?10/17/2024?8:11:42?AM END OF DOCUMENT
--- OUTSIDE RECORDS SUMMARY | 2024-10-20 07:58 | XMS_ITS | Encounter Summary ---
Author Organization [facility], Address [address] [place] [address] Phone Care Team Providers Care Group Home Paraprofessional Name Role Phone Simone Guerra MD Primary Care Provider [phone] Encounter Details Date Type Department Care Team (Late st Contact Info) Description 10/17/2024 Treatment [facility], [address] [place] [phone] [place] [address] [place] [phone] End stage renal disease; Dependence on renal [...] Dialysis Note - Ally Dodge APRN - 10/17/2024 12:00 AM EDT Patient: AMANDA JIM, 1970, 54y, F Dialysis Location: [facility] Attending Offset Pressman: Shahab Weinberg Service Date: 10/17/2024 Service Provider: Ally Dodge NP I met [...] on: 09/23/2024 TREATMENT ASSESSMENT BP Stand Pre 10/14/2024: 115/54 10/12/2024: 151/71 10/10/2024: 145/67 BP Sit Pre 10/14/2024: 166/76 10/12/2024: 167/84 10/10/2024: 171/76 BP Stand Post 10/14/2024: 141/62 10/12/2024: 141/61 10/10/2024: 103/52 BP Sit Post 10/14/2024: 131/107 10/12/2024: 160/75 10/10/2024: 133/60 Tx Duration 10/14/2024: 3:36 10/12/2024: 3:31 10/10/2024: 3:17 Missed Treatments 0 - last 30 days 0 - last 60 days FLUID ASSESSMENT EDW (kg) 10/14/2024: 72.0 10/12/2024: 72.0 10/10/2024: 72.0 Weight Pre (kg) 10/14/2024: 73.3 10/12/2024: 73.9 10/10/2024: 74.2 Weight Post (kg) 10/14/2024: 72.2 10/12/2024: 72.0 10/10/2024: 71.5 PWV (kg) 10/14/2024: 0.2 10/12/2024: 0.0 10/10/2024: -0.5 UF Rate (mL/kg/hr) 10/14/2024: 4.2 10/12/2024: 7.5 10/10/2024: 11.5 ADEQUACY ASSESSMENT spKt/V, URR 09/28/2024: 1.63, 75.0 08/31/2024: 1.46, 72.0 08/03/2024: 1.85, 79.0 ACCESS ASSESSMENT Access Type: AVFistula Access SubType: Standard Access Status: Active (In Use) - 07/13/2024 Access Location: Right Upper Arm Created: --/--/---- Flow 10/17/2024: 1009 08/29/2024: 1808 ANEMIA ASSESSMENT HGB, TSAT 10/12/2024: 11.3, 29.0 10/05/2024: 11.6, - 09/28/2024: 11.5, - Ferritin 10/12/2024: 1276.0 09/14/2024: 951.0 08/17/2024: 826.0 Mircera, IVP (mcg) 09/07/2024: 75 08/26/2024: 75 08/10/2024: 75 Iron Sucrose (Venofer) (mg) 09/28/2024: 50 09/21/2024: 50 09/14/2024: 50 BMM ASSESSMENT PTH, Intact 10/12/2024: 271.0 09/14/2024: 421.0 08/17/2024: 339.0 Calcium, Phosphorus 10/12/2024: 8.9, 6.8 09/14/2024: 8.1, 4.4 08/17/2024: 8.1, 4.8 Vitamin D (Calcitriol) Oral (mcg) 10/14/2024: 0.5 10/12/2024: 0.5 10/10/2024: 0.5 NUTRITION ASSESSMENT Potassium, Albumin 10/12/2024: 5.7, 3.6 09/14/2024: 5.2, 3.5 08/29/2024: 4.7, - eNPCR 09/28/2024: 0.69 08/31/2024: 0.49 08/03/2024: 0.7 DIAGNOSIS Chief Complaint: N18.6 End stage renal disease Comments: Patient seen and examined. VSS with no complaints to offer. S1, S2, RRR. LS CTA bilaterally. Access patent. Patient is stable. Patient data updated 10/17/2024 at 8:11 AM Signed By: Ally Dodge NP on 10/17/2024 8:11:42 AM documented in this encounter Plan of Treatment Upcoming Encounters Date Type Department Care Team (Late st Contact Info) Description 10/27/2024 8:45 AM EDT Office Visit [facility] [address] [place] [phone] documented as of this encounter Visit Diagnoses Diagnosis End stage renal disease Dependence on renal dialysis documented in this encounter Care Teams Group Home Paraprofessional Relationship Specialty Start Date End Date Simone Guerra MD [address] [id number] PCP - General Family Medicine 08/09/24 documented as of this encounter
--- OUTSIDE RECORDS SUMMARY | 2024-10-20 07:59 | XMS_ITS ---
Author Name [facility] Address [address] [place] [id number] Phone [phone] Organization [facility] e, NA DOCUMENT DISCLAIMER Multiple document versions may exist, please be sure you review the latest version. The information in the [facility] Continuity of Care Document represents a summary of certain health and medical information. It may not contain the complete medical history for the patient and should be independently verified. The represented time in the document is Eastern Time. 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 October 17, 2024 Encounter for immunization Z23 Active J une 2024 Iron deficiency anemia, unspecified D50.9 Activ e August 19, 2024 Anemia in other chronic diseases classified elsewhere D63.8 Active July 20, 2024 Shortness of breath R06.02 Active June Encounter for screening for respiratory tuberculosis Z 11.1 Active July 18, 2024 Coagulation defect, unspecified D68.9 Active July 18, 2024 End stage renal disease N18.6 Active Apri l 2024 Atherosclerotic heart diseas e of [place] coronary artery without angina pectoris I25.10 Active [...] renal dialysis Z99.2 Active July 13, 2024 half-way (current) use of anticoagulants Z79.01 Active July [...] Dosage Route Start Date End Date Status Vitamin D (Calcitriol) Oral Every Treatment 0.5 mcg Oral September 19, 2024 September 18, 2025 Active Iron Sucrose (Venofer) 1X Week 50 mg Intravenous - push September 07, 2024 September 06, 2025 Discontinued Home Medications Medication Instructions Dosage Route Start Date End Date [facility] us calcium carbonate 500 mg calcium (1,250 [...] Sign Value Date / Time Blood Pressure-sitting 117/50 mmHg October 19, 2024 06:27 AM Blood Pressure-standing 102/52 mmHg October 19, 2024 06:27 AM Heart Rate 79 beats per minute October 19 06:27 AM Respiratory Rate 18 breaths per minute October 19, 2024 06:27 AM Temperature 98.1 deg. F October 19, 2024 06 :27 AM Weight Vital Sign Value Date / Time Estimated Dry Weight 72 kg September 23 11:59 PM Pre-Dialysis 74.00 kg October 19, 2024 06 :27 AM Post-Dialysis 72.70 kg October 19, 2024 06 :27 AM Other Other Value Date / Time Height 160 cm August 12, 2024 12: 00 AM Body Mass Index 28.13 kg/m2 October 10, 2024 04 :06 PM LAB RESULTS Hematology Result Type Result Value Relevant Referen ce Range Interpretation Date WBC (No Diff) 12.13 1000/mcL 4.80 - 10.80 1000/mcL High July 18, 2024 TIBC (Calc) 188 mcg/dL 185 - 515 mcg/dL - June 292024 UIBC/TIBC 139 mcg/dL 155 - 355 mcg/dL Low June Ferritin 1170 ng/mL 10 - 291 ng/mL High July 18, 2024 Transferrin Sat. (Calc) 26 % 20 - 55 % - July 18, 2024 Platelets 302 1000/mcL 130 - 400 1000/mcL [...] 10 - 291 ng/mL High September 14 025 Hemoglobin x 3 31.8 % 36.0 - [...] % 36.0 - 48.0 % Low September Iron 63 mcg/dL 30 - 160 mcg/dL - October 12, 2024 Transferrin Sat. (Calc) 29 % 20 - 55 % - October 12, 2024 UIBC/TIBC 154 mcg/dL 155 - 355 mcg/dL Low October 12, 2024 TIBC (Calc) 217 mcg/dL 185 - 515 mcg/dL - September Ferritin 1276 ng/mL 10 - 291 ng/mL High October 12 Hemoglobin x 3 33.9 % 36.0 - 48.0 % Low September HGB 11.3 g/dL 12.0 - 16.0 g/dL Low October 12, 2024 Metabolic/Renal Result Type Result Value Relevant Reference Range Interpre tation Date BUN 33 mg/dL 6 - 19 mg/dL High July 22 BUN, Post 11 mg/dL 6 - 19 mg/dL - July 22 URR, Calc 67 % 65 - 80 % - July 22, 2024 Potassium 5.2 mEq/L 3.5 - 5.1 mEq/L High August 01, BUN 34 mg/dL 6 - 19 mg/dL High August 03, 2024 URR, Calc 79 % 65 - 80 % - August 03, 2024 BUN, Post 7 mg/dL 6 - 19 mg/dL - August 03, 2024 Potassium 4.6 mEq/L 3.5 - 5.1 mEq/L - August 08, Potassium 5.0 mEq/L 3.5 - 5.1 mEq/L - August 15, Bicarbonate 23 mEq/L 22 - 29 mEq/L - August 17 Sodium 137 mEq/L 136 - 145 mEq/L - August 17 Potassium 4.8 mEq/L 3.5 - 5.1 mEq/L [...] 6 - 19 mg/dL - September 28 BUN 40 mg/dL 6 - 19 mg/dL High October 12 Bicarbonate 23 mEq/L 22 - 29 mEq/L - October 12, 025 Chloride 99 mEq/L 96 - 108 mEq/L - October 12 025 Sodium 136 mEq/L 136 - 145 mEq/L - October 12, 2024 Potassium 5.7 mEq/L 3.5 - 5.1 mEq/L High October 12, 2024 Creatinine, Serum 5.41 mg/dL 0.60 - 1.30 mg/dL High October 12, 2024 BUN/Creat Ratio 7.4 10.0 - 20.0 Low October 12, 2024 HD Adequacy Result Type Result Value Relevant Referen ce Range Interpretation Date wstdKt/V 2.2 No Reference Ran ge Provided - July 22, 2024 spKt/V Got 1.34 No Reference Ran ge Provided - [...] Range Provided - July 22, 2024 spKt/V [facility] 1.93 No Reference Ran ge Provided - [...] Range Provided - August 31, 2024 spKt/V [facility] 1.48 No Reference Ran ge Provided - [...] - 100.0 ng/mL - July 18, 2024 Magnesium 2.1 mg/dL 1.6 - 2.6 mg/dL - July 18, 2024 Calcium, Total 8.1 mg/dL 8.4 - 10.2 mg/dL Low August 17, 2024 Phosphorus 4.8 mg/dL 2.6 - 4.5 mg/dL High August 17, 025 Ca x P Product 39 0 - 54 - August 17 25 Magnesium 2.0 mg/dL 1.6 - 2.6 mg/dL - August 17 025 Corrected Ca x P Product 40 0 - 54 - August 17, 2024 PTH-Intact, Plasma 339 pg/mL 16 - 80 pg/mL High August 17, 2024 Ca x P Product 36 0 - - September 14 025 Phosphorus 4.4 mg/dL 2.6 - 4.5 mg/dL - September 14, 2024 Calcium, Total 8.1 mg/dL 8.4 - 10.2 mg/dL Low September 14, 2024 Magnesium 2.0 mg/dL 1.6 - 2.6 mg/dL - September 14, 2024 PTH-Intact, Plasma 421 pg/mL 16 - 80 pg/mL High Aug Corrected Ca x P Product 37 0 - 54 - September 14, 2024 Magnesium 2.1 mg/dL 1.6 - 2.6 mg/dL - October 12, 2024 Corrected Ca x P Product 63 0 - 54 High October 12, 2024 Calcium, Total 8.9 mg/dL 8.4 - 10.2 mg/dL - October 12, 2024 Alkaline Phosphatase 120 U/L 35 - 104 U/L High 2024 Phosphorus 6.8 mg/dL 2.6 - 4.5 mg/dL High October 12, 2024 Ca x P Product 61 0 - 54 High October 12 PTH-Intact, Plasma 271 pg/mL 16 - 80 pg/mL High Sep Liver/Nutrition Result Type Result Value Relevant Reference Range Interpre tation Date LDH 224 U/L 118 - 273 U/L - July 18 eNPCR 0.61 No Reference Range [...] Reference Range Provided - September 28, 2024 Albumin (BCG) 3.6 g/dL 3.5 - 5.2 g/dL - September SGPT (ALT) 19 U/L 7 - 52 U/L - October 12, 2024 LDH 120 U/L 118 - 273 U/L - October 12 SGOT (AST) 14 U/L 13 - 39 U/L - October 12, 2024 Glucose 194 mg/dL 70 - 100 mg/dL High October 12 Lipid Result Type Result Value Relevant Referen ce Range Interpretation Date Cholesterol HDL Ratio 4.6 0.0 - 4.5 High Jun LDL, (Calculated) 56 mg/dL 0 - 99 mg/dL - July 18, 2024 Triglycerides 225 mg/dL 0 - 149 mg/dL High June VLDL (Calculated) 45 mg/dL 10 - 30 mg/dL High Apri l 2024 HDL 28 mg/dL No Reference Ran ge Provided - July 18, 2024 Cholesterol, Total 129 mg/dL 0 - 199 mg/dL - Jun Cholesterol, Total 139 mg/dL 0 - 199 mg/dL - Sep LDL, (Calculated) 62 mg/dL 0 - 99 mg/dL - October 12, 2024 Cholesterol HDL Ratio 5.3 0.0 - 4.5 High Sep VLDL (Calculated) 51 mg/dL 10 - 30 mg/dL High October 12, 2024 Triglycerides 257 mg/dL 0 - 149 mg/dL High October 12, 2024 HDL 26 mg/dL No Reference Ran ge Provided - October 12, 2024 Immunochemistry Result Type Result Value Relevant Reference [...] - 3.000 mIU/L High September 14, 2024 TSH 3rd Generation 3.140 mIU/L 0.300 - 3.000 mIU/L High October 12, 2024 Trace Elements Result Type Result Value Relevant Reference Range Interpre tation Aluminum < 5 mcg/L 0 - 10 mcg/L - July 18 Infectious Diseases Result Type Result Value Relevant Referen ce Range Interpretation Date Hep B core Ab Total (anti-HBc) Negative No Reference Range Provided - July 18, 2024 HCV Ab (anti-HCV) Nonreactive No Reference R ernesto Provided - July 18, 2024 Hep B Surface Ab (anti-HBs) 235 mIU/mL No Reference Range Provided - October 12, 2024 Hep B Surface Ag (HBsAg) Negative No Reference Range Provided - October 12, 2024 DIALYSIS PRESCRIPTION Conventional Hemodialysis Data Element Value Order Date/Time September 23, 2024 Frequency 3X Week Treatment Days MonWedFri Dialyzer 160NRe Optiflux Treatment Time (Total Minutes) 210 min Blood Flow Rate (mL/min) 350 mL/min Dialysate Flow Rate Manual 800 Estimated Dry Weight 72 kg Dialysate Concentrate 2.0 K, 2.50 Ca, 1. 0 Mg, 100 Dextrose ([id number]) Sodium (mEq/L) 137 mEq/L Bicarb Machine Setting [...] Effective Date Resuscitation status Full Code Shahab Weinberg Jul 18, 2024 DIALYSIS TREATMENTS Conventional Hemodialysis Date Pre-Treatment Vitals Post-Treatment Maria Guadalupe ls Duration (hr) BFR (mL/min) Dialysate Dialyzer Dialysis Access Meds Admin October 14, 2024 Weight 73.30 kg Weight 72.20 kg 03:36:00 370 2.0 K, 2.50 Ca, 1.0 Mg, 100 Dextrose ([id number]) 160nre Optifl ux Blood Pressure-sitting 166/76 mmHg Blood Pressure-sit ting 131/107 mmHg Blood Pressure-standing 115/54 mmHg Blood Pressure-st anding 141/62 mmHg Heart Rate 105 beats per minute Heart Rate 72 beats per minute Respiratory Rate 18 breaths per minute Respiratory Rate 18 breaths per minute Temperature 98.7 deg. F Temperature 97.8 deg. F October 17, 2024 Weight 74.80 kg Weight 72.80 kg 03:32:00 350 2.0 K, 2.50 Ca, 1.0 Mg, 100 Dextrose ([id number]) 160nre Optiflux Hemodialysis-AV Fistula-Standard, Right Upper Arm, Other/Unknown Vitamin D (Calcitriol) Oral; 0.5mcg,Oral Blood Pressure-sitting 172/80 mmHg Blood Pressure-sit ting 165/72 mmHg Blood Pressure-standing 154/75 mmHg Blood Pressure-st anding 110/53 mmHg Heart Rate 96 beats per minute Heart Rate 88 beats per minute Respiratory Rate 18 breaths per minute Respiratory Rate 16 breaths per minute Temperature 96.8 deg. F Temperature 98.7 deg. F October 19, 2024 Weight 74.00 kg Weight 72.70 kg 03:31:00 350 2.0 K, 2.50 Ca, 1.0 Mg, 100 Dextrose ([id number]) 160nre Optiflux Hemodialysis-AV Fistula-Standard, Right Upper Arm, Other/Unknown Vitamin D (Calcitriol) Oral; 0.5mcg,Oral Blood Pressure-sitting 178/80 mmHg Blood Pressure-sit ting 117/50 mmHg Blood Pressure-standing 149/71 mmHg Blood Pressure-st anding 102/52 mmHg Heart Rate 84 beats per minute Heart Rate 79 beats per minute Respiratory Rate 18 breaths per minute Respiratory Rate 18 breaths per minute Temperature 97.2 deg. F Temperature 98.1 deg. F
--- NOTE | 2024-10-20 08:00 | CA_ITS ---
Transthoracic Echocardiogram Patient (Last, First, Middle): Amanda Jim J Gender: Female Date of : 1970 Age: 54 Procedure Date: 10/20/2024 Procedure Type: Transthoracic Echocardiogram Location: OP Height: 152.4 cm Weight: 73.48 kg BSA: 1.71 m2 Heart Rate: 67 bpm BP: 158 / 55 mmHg Interventional Neuroradiologist: NINO/GEO Referring MD: Oziel Ba MD Rink Rat: Feliciano Guerrero MD Symptoms: I25.10 - Atherosclerotic heart disease of [place] coronary artery without... Study Quality: Adequate ECG Rhythm: Sinus Conclusions: - 1. Normal LV ejection fraction of 60 65% with impaired relaxation filling pattern with elevated filling pressures then underlying regional wall motion abnormality and RCA territory 2. Normal cardiac valvular Dopplers 3. No gross pericardial effusion Findings Left Ventricle Normal left ventricular size, thickness, and systolic function. The visually estimated ejection fraction is between 60-65%. Spectral Doppler is indicative of an impaired relaxation filling pattern. Elevated filling pressures. E/E prime ratio is >15, consistent with elevated filling pressures. Wall Motion Rest Echo Findings The basal inferior, mid inferior, and basal inferoseptal segments are hypokinetic. All other scored wall segments showed normal motion. Right Ventricle Normal right ventricular cavity size and systolic function. Atria The left atrium is mildly dilated. There is no evidence of interatrial shunt. The right atrium is normal in size. Aortic Valve Normal aortic valve structure and function. There is no aortic valve stenosis. There is no aortic valve regurgitation. Mitral Valve There is mild anterior and posterior mitral leaflet thickening. There is trace mitral valve regurgitation. There is no mitral valve stenosis. Pulmonic Valve The pulmonic valve was not well visualized. Tricuspid Valve Likely normal tricuspid valve structure and function. Great Vessels All visible segments of the aorta are normal in size. The pulmonary artery was not well visualized. There is no dilatation of the ascending aorta measuring 3.30 cm. Venous The inferior vena cava is normal in size and collapses greater than 50% with inspiration. Pericardium/Pleural There is no evidence of pericardial effusion. Prior Study Comparison No prior study available for comparison. Measurements 2D Linear Measurements IVSd: 1.11 0.6-0.9/0.6-1.0 cm LVIDd: 4.95 3.9-5.3/4.2-5.9 cm LVIDd Index: 2.89 2.4-3.2/2.2-3.1 cm/m2 LVIDs: 3.07 2.0-3.6 cm LVPWd: 1.01 0.7-1.1 cm LA Diam: 3.80 2.7-3.8/3.0-4.0 cm LAIDs Index: 2.22 1.5-2.3 cm/m2 LV Mass: 241.39 67-162/88-224 g LV Mass Index: 141.16 43-95/49-115 g/m2 LVOT Diam: 2.00 3.0+(-)1.3 cm 2D Systolic Function EF 4C: 63.20 >55% EF 2C: 68.50 >55% EF BiP: 62.30 >55% Mitral Valve MV Pk E: 1.09 MV PK A: 1.12 MV Decel Time: 188.00 E/A: 1.00 E'Lateral: 5.22 E'Medial: 4.46 E/E' Med: 24.40 E/E' Lat: 20.90 PHT: 55.00 MVA PHT: 4.00 Decel Lanier: 5.78 Aortic Valve AoV Pk Iban: 1.23 AoV Mn Iban: 0.79 AoV VTI: 0.30 AoV Pk Grad: 6.00 Aov Mn Grad: 3.00 ALINA Cont.VTI: 2.33 LVOT LVOT Pk Iban: 0.91 LVOT Mn Iban: 0.61 LVOT VTI: 0.22 LVOT Pk Grad: 3.00 LVOT Mn Grad: 2.00 LVOT Diam: 2.00 LVOT Area: 3.14 Diastolic Function MV Pk E: 1.09 MV Pk A: 1.12 E/A: 1.00 E'Medial: 4.46 E/E' Med: 24.40 E' Laterial: 5.22 E/E' Lat: 20.90 Right Ventricle TAPSE (mm): 22.10 TVS' Iban: 10.20 Great Vessels Aorta Sinus of Valsalva: 3.10 2.0-3.5 cm Ao Asc: 3.30 2.1-3.4 cm Pulmonary Valve PV Pk Iban: 1.24 Peak PV Grad: 6.00 Updated in Other Vendor System with Status of Final Feliciano Guerrero MD electronically signed on 10/20/2024 5:07:20 PM with status of Final
[2024-10-20 09:43] LABS: Hematocrit 36.1 % (37.0-47.0); Hemoglobin 11.2 g/dl (12.0-16.0); Mean Corpuscular HGB Conc 31.0 g/dl (31.0-35.0); Mean Corpuscular Hemoglobin 28.4 pg (27.0-33.0); Mean Corpuscular Volume 91.6 fL (80.0-98.0); NRBC Abs Auto 0.000 X10*3/uL (0.0-0.012); NRBC Pct Auto 0.0 /100WBC (0.0-0.2); Platelet Count 237 X10*3/uL (160-400); Red Blood Count 3.94 X10*6/uL (4.20-5.50); White Blood Count 8.6 X10*3/uL (4.8-10.8)
[2024-10-20 10:23] LABS: Alanine Aminotransferase 22 U/L (0-31); Aspartate Amino Transferase 28 U/L (5-31); Cholesterol 157 mg/dL (<200); Estimated Glomerular Filt Rate 11; HDL Cholesterol 30 mg/dL (>40); Triglycerides 255 mg/dL (<150)
== END ==
LOC: HO.CARD 07:55
PROVIDERS: Student in an Organized Health Care Education/Training Program; PCP Nurse Practitioner Family; Visit Provider Internal Medicine
DX: I25.10 Atherosclerotic heart disease of native coronary artery without angina pectoris (principal); I27.20 Pulmonary hypertension, unspecified; E11.8 Type 2 diabetes mellitus with unspecified complications
CPT/HCPCS: 36415; 80061; 82565; 84450; 84460; 85027; 93306

== ENCOUNTER → 2024-10-20 08:00 | Outpatient (BNV) | payer OTHER, SELFPAY | PROVIDERS: PCP Nurse Practitioner Family; Visit Provider Internal Medicine Cardiovascular Disease | DX: I25.10 Atherosclerotic heart disease of native coronary artery without angina pectoris (principal) | CPT/HCPCS: 93306 ==

== ENCOUNTER 2024-11-01 09:06 | Outpatient (AMB) | payer OTHER, SELFPAY ==
--- OUTSIDE RECORDS SUMMARY | 2024-10-30 20:00 | XMS_ITS ---
Author Name Ally Dodge Address [address] [place] [id number] Phone [phone] Organization [facility] e, NA DOCUMENT DISCLAIMER Multiple document versions may exist, please be sure you review the latest version. The information in the [facility] Progress Note Document represents a providers documented clinical note containing certain health and medical information. It may not contain the complete medical history for the patient and should be independently verified. The represented time in the document is Eastern Time PROVIDER ROUNDING NOTE BASIC Patient:?LEO?NIXON,?1970,?54y,?F Dialysis?Location:?[facility] Attending?Automation Qa Analyst:?Bobby Service?Date:?10/31/2024 Service?Provider:?Ally?Echo,?WARE SERVER I?met?face?to?face?with?the?patient?today. OVERVIEW The?patient?presented?with?ESRD?on?dialysis Primary?cause?of?renal?failure:?Hypertensive?chronic?kidney? disease?with?stage?1?through?stage?4?chronic?kidney?dis ease,?or?unspecified?chronic?kidney?disease DIALYSIS?PRESCRIPTION ??IHD?3x?Week?Start?date:?09/23/24 ??Dialyzer:?160NRe?Optiflux ??BFR:?350 ??DFR:?Manual?800 ??Potassium:?2.0 ??Sodium:?137 ??EDW:?72 ??Duration:?3:30 ??Calcium:?2.50 ??Bicarb:?35 ??Rx?updated?on:?09/23/2024 TREATMENT?ASSESSMENT BP?Stand?Pre ??10/28/2024:?176/70 ??10/26/2024:?145/65 ??10/24/2024:?193/87 BP?Sit?Pre ??10/28/2024:?179/89 ??10/26/2024:?169/74 ??10/24/2024:?190/76 BP?Stand?Post ??10/28/2024:?105/52 ??10/26/2024:?109/62 ??10/24/2024:?105/47 BP?Sit?Post ??10/28/2024:?137/67 ??10/26/2024:?131/70 ??10/24/2024:?101/48 Tx?Duration ??10/28/2024:?3:38 ??10/26/2024:?3:32 ??10/24/2024:?3:01 Missed?Treatments 0?-?last?30?days 0?-?last?60?days FLUID?ASSESSMENT EDW?(kg) ??10/28/2024:?72.0 ??10/26/2024:?72.0 ??10/24/2024:?72.0 Weight?Pre?(kg) ??10/28/2024:?74.3 ??10/26/2024:?75.0 ??10/24/2024:?74.7 Weight?Post?(kg) ??10/28/2024:?72.3 ??10/26/2024:?72.9 ??10/24/2024:?73.1 PWV?(kg) ??10/28/2024:?0.3 ??10/26/2024:?0.9 ??10/24/2024:?1.1 UF?Rate?(mL/kg/hr) ??10/28/2024:?7.6 ??10/26/2024:?8.2 ??10/24/2024:?7.3 ADEQUACY?ASSESSMENT spKt/V,?URR ??09/28/2024:?1.63,?75.0 ??08/31/2024:?1.46,?72.0 ??08/03/2024:?1.85,?79.0 ACCESS?ASSESSMENT ??Access?Type:?AVFistula ??Access?SubType:?Standard ??Access?Status:?Active?(In?Use)?-?07/13/2024 ??Access?Location:?Right?Upper?Arm ??Created:?--/--/---- Flow ??10/28/2024:?936 ??10/21/2024:?1336 ??10/17/2024:?1009 ANEMIA?ASSESSMENT HGB,?TSAT ??10/26/2024:?10.9,?- ??10/19/2024:?11.4,?- ??10/12/2024:?11.3,?29.0 ?? Ferritin ??10/12/2024:?1276.0 ??09/14/2024:?951.0 ??08/17/2024:?826.0 Mircera,?IVP?(mcg) ??09/07/2024:?75 ??08/26/2024:?75 ??08/10/2024:?75 Iron?Sucrose?(Venofer)?(mg) ??09/28/2024:?50 ??09/21/2024:?50 ??09/14/2024:?50 BMM?ASSESSMENT PTH,?Intact ??10/12/2024:?271.0 ??09/14/2024:?421.0 ??08/17/2024:?339.0 ?? Calcium,?Phosphorus ??10/19/2024:?-,?6.0 ??10/12/2024:?8.9,?6.8 ??09/14/2024:?8.1,?4.4 Vitamin?D?(Calcitriol)?Oral?(mcg) ??10/28/2024:?0.5 ??10/26/2024:?0.5 ??10/24/2024:?0.5 NUTRITION?ASSESSMENT Potassium,?Albumin ??10/12/2024:?5.7,?3.6 ??09/14/2024:?5.2,?3.5 ??08/29/2024:?4.7,?- ?? eNPCR ??09/28/2024:?0.69 ??08/31/2024:?0.49 ??08/03/2024:?0.7 DIAGNOSIS Chief?Complaint:?N18.6?End?stage?renal?disease Comments:?Patient?seen?and?examined.?VSS?with?no?complaints& #160;to?offer.?S1,?S2,?RRR.?LS?CTA?bilaterally.?Access?patent.? Patient?is?stable. Patient?data?updated?10/31/2024?at?8:19?AM Signed?By:?Echo,?Ally,?WARE SERVER??on?10/31/2024?8:19:15?AM END OF DOCUMENT
[2024-11-01 09:11] VITALS: BP 148/60; PULSE 78; O2SAT 98; BMI 31.1
--- NOTE | 2024-11-01 09:11 | A.OFFVIS_ITS ---
Vital Signs 11/01/24 09:11 Height 5 ft Weight 159 lb 2 oz BMI 31.1 BP 148/60 H Blood Pressure Location Lt brachial Position Sitting Pulse 78 Pulse Source Pulse Oximeter Pulse Oximetry (%) 98 Oxygen Delivery Method Room Air Intake Visit Reasons: Pulmonary hypertension/ Allergies No Known Allergies Allergy (Verified 11/01/24 09:15) HPI HPI Pulmonary hypertension/: Details: Amanda is a pleasant 54 year old female, never smoker, with underlying COPD, pulmonary hypertension, CKD on dialysis 06/2024, h/o pericardial effusion, DMII, Hypothyroidism and question ELTON, previously on ELTON. She recently moved here from [facility] and presents to establish pulmonary care. She is accompanied by daughter and . She is requesting daughter translate for duration of appointment. She reports hospitalizations earlier this year related to CKD now maintained on dialysis MWF, h/o pericardial effusion and new diagnosis of moderate pulmonary hypertension. She had echo 05/2024 in [facility] which revealed LVEF 55%, dilated RA/RV with RVSP 54, previously on sildenafil, toresemide and prazosin. She also underwent cardiac cath however RVSP or pulmonary wedge pressure not documented. Prior CTA 05/2024 performed in [facility] revealed enlargement of pulmonary trunk, negative for PE with patchy ggo of bilateral lungs, images not available today. Prior to hospitalizations patient with significant dyspnea resulting in limited activity and orthopnea however since initiating dialysis patient reports resolution of dyspnea on minimal exertion/orthopnea. She currently denies dyspnea unless significant exertion however daughter does observe labored breathing with any acitivity. Denies cough, wheezing or chest tightness. She denies BLE edema or orthopnea. She carries a diagnosis of COPD, unknown severity and will have PFT performed to assess. She currently has nebulized therapy but has not had to use since the last visit. At the last visit, she was sent for home sleep study and chest CT both scheduled next month. She was evaluated by cardiology and had echo to reassess overall cardiac function and estimated pulmonary pressures however unable to obtain due to difficult study. Likely prior finding of pulmonary hypertension related to fluid overload and patient with significant improvements in respiratory symptoms since initiating dialysis and continues with dialysis MWF. She denies any visits to urgent care or hospitalizations related to respiratory distress since the last visit. Of note, patient did state she will be leaving back to [place] for 6 months in January. [facility] Medical History (Updated 10/11/24 @ 08:06 by Rody Saavedra MD) Long-term insulin use Kidney disease GERD (gastroesophageal reflux disease) Liver disease Edema Spine disorder Surgical History No pertinent past surgical history Family History Mother HTN (hypertension) Diabetes Father HTN (hypertension) Sister Diabetes Brother Diabetes Social History Household Members: Family Both parents involved: No Caregiver staying overnight: No Housing: House Are you a primary animal care giver to a significant other at home: No Do you presently have visiting nurse or other home services: No 75 years or older and lives alone: No Alcohol intake: never Patient Tobacco Use Status: Never used Tobacco e-Cigarette/Vaping Use: Never Used Second Hand Smoke Exposure: No Current occupational status: unemployed and disabled Cognitive needs: No Hearing needs: No Vision needs: No Review of Systems Const Denies chills, Denies excessive sweating, Denies fever(s), Denies headache(s) and Denies night sweats Eyes Denies dry eyes, Denies irritation and Denies itchy eyes ENT Reports Normal hearing present, Denies headache(s), Denies nasal congestion, Denies nasal discharge, Denies post nasal drip and Denies sore throat Card Denies chest pain, Denies chest pain at rest, Denies chest pain with activity, Denies claudication, Denies leg edema, Reports dyspnea on exertion, Denies orthopnea and Denies paroxysmal nocturnal dyspnea Resp Denies chest congestion, Denies cough, Denies excessive phlegm production, Denies pain on inspiration, Denies pain with cough, Reports dyspnea on exertion, Denies stridor and Denies wheezing Musc Denies myalgias Neuro Reports Normal hearing present and Denies headache(s) Endo Denies excessive sweating Thierno/Lymph Denies lymphadenopathy Aller/Immun Denies itchy eyes, Denies seasonal rhinorrhea and Denies wheezing Physical Exam Vital Signs: Last Vital Signs Pulse 78 11/01/24 09:11 BP 148/60 H 11/01/24 09:11 Pulse Ox 98 11/01/24 09:11 Oxygen Delivery Method Room Air 11/01/24 09:11 BMI result Body Mass Index 31.1 Const General: cooperative, healthy appearing, comfortable, no acute distress, well developed and alert Nutritional Appearance: obese Orientation/consciousness: patient oriented x3 Limitations: no limitations HEENT Head: Yes normal to inspection, Yes normocephalic and Yes atraumatic Ears: hearing grossly normal bilaterally and external ears normal Eyes General: appearance normal, both eyes and all related structures Eyelids: Yes eyelids normal Sclerae: sclerae normal EOM: EOMs intact bilaterally Neck Neck: Yes normal visual inspection and Yes no lymphadenopathy Lymphatic: no lymphadenopathy noted Chest Chest palpation & inspection: normal inspection of the chest Resp Effort & Inspection: normal respiratory effort, able to speak in complete sentences, no audible wheezes, no cough, no stridor, not tachypneic, no tripod positioning and no use of accessory muscles Auscultation: diminished lung sounds Cardio Jugular venous distension: no JVD Rate: regular rate Rhythm: regular rhythm Skin Other: warm, dry General skin exam: no rashes or lesions noted Neuro General: patient oriented x3 Cranial nerves: Yes Normal hearing present Cognition (Neuro): normal cognition Gait exam (Neuro): Normal gait present Extrem General: Yes normal to inspection, Yes capillary refill normal, Yes no clubbing, cyanosis or edema and Yes no pedal edema Psych Appearance: grossly normal and well kempt Speech and movement: Normal speech and movement present and Clear speech present Affect: normal affect Attitude: cooperative Thought process: Normal thought process present Thought content: Normal thought content present Insight: Good insight present (Psych) Judgement: Good judgement present (Psych) Office Procedures 6 Minute Walk Time:: 09:40 SPO2 % at rest: 100 Pulse at rest: 77 SPO2 % during excercise: 97 Pulse during excercise: 112 SPO2 % after excercise: 97 Pulse after excercise: 107 Distance in yards walked: 100 Jose Score: 4 Performance Observations:: Patient walked on level ground without assistance. Gait is steady and moderate paced. Patient maintained O2 saturation of 97% or greater with pulse of 112 or lower for the entirety of the walk. Denies shortness of breath. No supplemental oxygen needed. [id number] - 6 Minute Walk Assessment & Plan Assessment & Plan (1) Pulmonary HTN: Code(s): I27.20 - Pulmonary hypertension, unspecified Category: Medical (2) COPD (chronic obstructive pulmonary disease): Code(s): J44.9 - Chronic obstructive pulmonary disease, unspecified Category: Medical (3) Obstructive sleep apnea: Code(s): G47.33 - Obstructive sleep apnea (adult) (pediatric) Category: Medical (4) Daytime somnolence: Code(s): R40.0 - Somnolence Category: Medical (5) Ground glass opacity present on imaging of lung: Code(s): R91.8 - Other nonspecific abnormal finding of lung field Category: Medical Plan Prior estimated RSVP 55 on echo 05/2024. She underwent cardiac cath however no note of pulmonary pressures on this nor wedge pressure. Repeat echo unable to estimate pulmonary pressures to confirm continued diagnosis of pulmonary hypertension. Since patient denies overt respiratory symptoms would hold off on further testing however if dyspnea worsens or develops cough may need to further assess with right heart cath, likely that prior echo may have been falsely elevated due to fluid overload. 6MWT performed and patient maintained >97% oxygen saturation without significant tachycardia, no need for supplemental oxygen at this time. At some point patient required CPAP therapy and patient continues with daytime fatigue, scheduled for home sleep study. Prior CT 05/2024 revealed diffuse ground glass opacities, possibly related to fluid overload, will have repeat CT next month. PFT order placed to assess severity of COPD and has nebulized medication to use PRN which she has not required. All questions were answered and patient is in agreement of plan. Will follow up to review results or sooner if needed. Orders: Orders PFT pulmonary function test Today J44.9 - Chronic obstructive pulmonary disease, unspecified AMB 6 minute walk Today J44.9 - Chronic obstructive pulmonary disease, unspecified Coding Level of Care Code Est Pt Level 4 (89413) Complex EM visit Add On G2211 Diagnoses Pulmonary HTN I27.20 COPD (chronic obstructive pulmonary disease) J44.9 Obstructive sleep apnea G47.33 Daytime somnolence R40.0 Ground glass opacity present on imaging of lung R91.8 CPT Codes Coding ([id number])
--- OUTSIDE RECORDS SUMMARY | 2024-11-01 09:26 | XMS_ITS | Clinical Summary ---
Author Organization [facility], Address [address] [place] [address] Phone Care Team Providers Care Transcription Coordinator Name Role Phone Simone Guerra MD Primary Care Provider Allergies No known active allergies Active Problems Problem Noted Date Diagnosed Date End stage renal disease 07/18/2024 Encounters Date Type Department Care Team Description 10/31/2024 Treatment [facility], [address] [place] [address] Ally Dodge APRN End stage renal disease; Dependence on renal dialysis 10/27/2024 8:45 AM EDT Office Visit [facility], - [facility] [address] [place] [address] Jamie Momin MD Steal syndrome of hand (HCC) (Primary Dx) 10/26/2024 Orders Only [facility] [address] [address] Shahab Weinberg MD 10/21/2024 Treatment [facility], [address] [place] [address] Ally Dodge APRN End stage renal disease; Dependence on renal dialysis 10/19/2024 Orders Only [facility] [address] [address] Shahab Weinberg MD 10/17/2024 Treatment [facility], [address] [place] [address] Ally Dodge APRN End stage renal disease; Dependence on renal dialysis 10/12/2024 Orders Only [facility] [address] [address] Shahab Weinberg MD 10/10/2024 Treatment [facility], [address] [place] [address] Ally Dodge APRN End stage renal disease; Dependence on renal dialysis 10/07/2024 Treatment [facility], [address] [place] [address] Nayan Gunderson MD End stage renal disease; Dependence on renal dialysis; Type 2 diabetes mellitus with diabetic chronic kidney disease 10/05/2024 Orders Only [facility] [address] [address] Shahab Weinberg MD 09/28/2024 Orders Only [facility] [address] [address] Shahab Weinberg MD 09/23/2024 Treatment [facility], [address] [place] [address] Nayan Gunderson MD End stage renal disease; Dependence on renal dialysis; Type 2 diabetes mellitus with diabetic chronic kidney disease 09/21/2024 Orders Only [facility] [address] [address] Shahab Weinberg MD 09/14/2024 Orders Only [facility] [address] [address] Shahab Weinberg MD 09/12/2024 Treatment [facility], [address] [place] [address] Ally Dodge APRN End stage renal disease; Dependence on renal dialysis; Type 2 diabetes mellitus with diabetic chronic kidney disease 09/09/2024 Treatment [facility] [address] [place] [address] Nayan Gunderson MD End stage renal disease; Dependence on renal dialysis; Type 2 diabetes mellitus with diabetic chronic kidney disease 09/07/2024 Orders Only [facility] [address] [address] Shahab Weinberg MD 09/05/2024 Treatment [facility] [address] [place] [address] Ally Dodge APRN End stage renal disease; Dependence on renal dialysis 08/31/2024 Orders Only [facility] [address] [address] Shahab Weinberg MD 08/29/2024 Orders Only [facility] [address] [address] Shahab Weinberg MD 08/29/2024 Treatment [facility] [address] [place] [address] Ally Dodge APRN End stage renal disease; Dependence on renal dialysis 08/24/2024 Orders Only [facility] [address] [address] Shahab Weinberg MD 08/22/2024 Orders Only [facility] [address] [address] Shahab Weinberg MD 08/17/2024 Orders Only [facility] [address] [address] Shahab Weinberg MD 08/15/2024 Orders Only [facility] [address] [address] Shahab Weinberg MD 08/15/2024 Treatment [facility] [address] [place] [address] Ally Dodge APRN End stage renal disease; Dependence on renal dialysis; Type 2 diabetes mellitus with diabetic chronic kidney disease 08/10/2024 Orders Only [facility] [address] [address] Shahab Weinberg MD 08/10/2024 Treatment [facility], [address] [place] [address] Nayan Gunderson MD End stage renal disease; Dependence on renal dialysis; Type 2 diabetes mellitus with diabetic chronic kidney disease 08/08/2024 Orders Only [facility] [address] [address] Shahab Weinberg MD 08/08/2024 Treatment [facility], [address] [place] [address] Ally Dodge APRN End stage renal disease; Dependence on renal dialysis; Type 2 diabetes mellitus with diabetic chronic kidney disease 08/03/2024 Orders Only [facility] [address] [address] Shahab Weinberg MD 08/01/2024 Orders Only [facility] [address] [address] Shahab Weinberg MD 08/01/2024 Treatment [facility], [address] [place] [address] Ally Dodge APRN End stage renal disease; Dependence on renal dialysis; Type 2 diabetes mellitus with diabetic chronic kidney disease from Last 3 Months Social History Tobacco Use Types Packs/Day Years Used Date Smoking Tobacco: Never Assessed Comments Unknown Sex and Gender Information Value Date Recorded Sex Assigned at Not on file Legal Sex Female 8:56 AM EDT Gender Identity Not on file Sexual Orientation Not on file Plan of Treatment Upcoming Encounters Date Type Department Care Team (Late st Contact Info) Description 12/13/2024 9:30 AM EDT Office Visit [facility] [address] [place] [address] Health Maintenance Due Date Last Done Comments Breast Cancer Screening 1970 Pneumococcal Vaccine: 50+ Years (1 of 2 - PCV) 989 Hepatitis B Vaccine (1 of 5 - Risk Dialysis 4-dose series) 1989 Colorectal Cancer Screening: Annual FOBT 2018 Colorectal Cancer Screening: Colonoscopy 2018 Colorectal Cancer Screening: Sigmoidoscopy 2018 Diabetes: Hemoglobin A1C 07/18/2024 Diabetes: Ophthalmology Exam 07/18/2024 Diabetes: Pedal Pulse Checked 07/18/2024 Diabetes: Sensory Foot Exam 07/18/2024 Diabetes: Visual Foot Exam 07/18/2024 Influenza Vaccine (#1) 2024 Procedures Procedure Name Priority Date/Time Associated Diagnosis Comments HEMATOLOGY Routine 10/26/2024 CHEMISTRY Routine 10/19/2024 HEMATOLOGY Routine 10/19/2024 THYROIDS Routine 10/12/2024 HEMATOLOGY Routine 10/12/2024 CHEMISTRY Routine 10/12/2024 IMMUNO CHEMISTRY Routine 10/12/2024 CHEMISTRY Routine 10/12/2024 HEMATOLOGY Routine 10/05/2024 SPECTRA NICOL LAB RESULTS Routine 09/28/2024 HD KINETICS Routine 09/28/2024 CHEMISTRY Routine 09/28/2024 POST CHEMISTRY Routine 09/28/2024 HEMATOLOGY Routine 09/28/2024 HEMATOLOGY Routine 09/21/2024 THYROIDS Routine 09/14/2024 IMMUNO CHEMISTRY Routine 09/14/2024 CHEMISTRY Routine 09/14/2024 HEMATOLOGY Routine 09/14/2024 CHEMISTRY Routine 09/14/2024 HEMATOLOGY Routine 09/07/2024 SPECTRA NICOL LAB RESULTS Routine 08/31/2024 HD KINETICS Routine 08/31/2024 POST CHEMISTRY Routine 08/31/2024 HEMATOLOGY Routine 08/31/2024 CHEMISTRY Routine 08/31/2024 CHEMISTRY Routine 08/29/2024 HEMATOLOGY Routine 08/24/2024 CHEMISTRY Routine 08/22/2024 THYROIDS Routine 08/17/2024 IMMUNO CHEMISTRY Routine 08/17/2024 CHEMISTRY Routine 08/17/2024 HEMATOLOGY Routine 08/17/2024 CHEMISTRY Routine 08/17/2024 CHEMISTRY Routine 08/15/2024 HEMATOLOGY Routine 08/10/2024 CHEMISTRY Routine 08/08/2024 SPECTRA NICOL LAB RESULTS Routine 08/03/2024 HD KINETICS Routine 08/03/2024 POST CHEMISTRY Routine 08/03/2024 HEMATOLOGY Routine 08/03/2024 CHEMISTRY Routine 08/03/2024 CHEMISTRY Routine 08/01/2024 from Last 3 Months Results * (ABNORMAL) HEMATOLOGY (10/26/2024) Only the most recent of13 resultswithin the time period is included. Pathologist [facility] Hemoglobin 10.9(L) 12.0 - 16.0 g/dL [facility] Hemoglobin x 3 32.7(L) 36.0 - 48.0 % [facility] 10/26/2024 10/27/2024 9:2 9 AM EDT Narrative [facility] - 10/27/2024 Unless otherwise specified, test(s) performed at: [facility], [address] [place], [place] [id number] FOUR H AGENT: Andry Spangler M.D. For any questions, please call customer service at FREQUENCY:OTHER Resulting Agency Comment Specimen source: Blood Shahab Weinberg MD LAB BLOOD ORDERABLES Final Re sult [facility] See order comments or contact performing lab Unknown, [place] * (ABNORMAL) [facility] (10/19/2024) Only the most recent of15 resultswithin the time period is included. Pathologist [facility] Phosphorus 6.0(H) 2.6 - 4.5 mg/dL [facility] 10/19/2024 10/20/2024 8:2 0 AM EDT Narrative [facility] - 10/20/2024 Unless otherwise specified, test(s) performed at: [facility], [address] [place] [id number] FOUR H AGENT: Andry Spangler M.D. For any questions, please call customer service at FREQUENCY:OTHER Resulting Agency Comment Specimen source: Serum us Shahab Weinberg MD LAB BLOOD ORDERABLES [facility] Performing Organization Address [facility] de Phone Number [facility] See order comments or contact performing lab Unknown, [place] * (ABNORMAL) THYROIDS (10/12/2024) Only the most recent of3 resultswithin the time period is included. Pathologist [facility] TSH 3.140(H) 0.300 - 3.000 mIU/L [facility] Comment: The reference range of 0.300-3.000 mIU/L is recommended by the [place] [employer]in[employer] (AACE). An ESRD population contains about 20% of individuals with TSH of up to 20 mIU/L and normal free T4 consistent with non-thyroidal illness. ESRD patients with true hypothyroidism develop persistent values above 20 mIU/L. 10/12/2024 10/13/2024 8:5 0 AM EDT Narrative [facility] - 10/13/2024 Unless otherwise specified, test(s) performed at: [facility], [address] [place] [id number] FOUR H AGENT: Andry Spangler M.D. For any questions, please call customer service at FREQUENCY:MONTHLY Resulting Agency Comment Specimen source: Serum Shahab Weinberg MD LAB BLOOD ORDERABLES Final [facility] Performing Organization Address [facility] de Phone Number [facility] See order comments or contact performing lab Unknown, [place] * IMMUNO CHEMISTRY (10/12/2024) Only the most recent of3 resultswithin the time period is included. Pathologist [facility] Hep B Surface Ag Negative Negative [facility] Hepatitis B Surface Ab 235 mIU/mL [facility] Comment: The anti-HBs (Hepatitis B surface antibody) is greater than or equal to 10 mIU/mL and implies immunity. The patient has either had an antibody response to HBV vaccination, received a transfusion, or has recovered from HBV infection. For post-vaccination antibody testing guidelines for the general public, refer to MMWR March 21, 2005/Vol.54 (No. 16); -23, and for healthcare workers, refer to MMWR March 18, 2013/Vol.62 (No. 10); 1-18. Reference Range: <10 mIU/mL Non-Immune >=10 mIU/mL Immune The magnitude of the measured result above 10 mIU/mL is not indicative of the total amount of antibody present. 10/12/2024 10/13/2024 8:5 0 AM EDT Narrative Resulting Agency Comment Specimen source: Serum Shahab Weinberg MD LAB BLOOD ORDERABLES Final Re sult Performing Organization Address [facility] de Phone Number [facility] See order comments or contact performing lab Unknown, [place] * HD KINETICS (09/28/2024) Only the most recent of3 resultswithin the time period is included. % Urea Reduction 75 65 - 80 % [facility] 09/28/2024 09/29/2024 10: 20 AM EDT Narrative [facility] - 09/29/2024 Unless otherwise specified, test(s) performed at: [facility], [address] [place] [phone] FOUR H AGENT: Andry Spangler M.D. For any questions, please call customer service at FREQUENCY:OTHER Resulting Agency Comment Specimen source: Plasma Shahab Weinberg MD LAB BLOOD ORDERABLES Final Re sult Performing Organization Address [facility] de Phone Number [facility] See order comments or contact performing lab Unknown, [place] * POST CHEMISTRY (09/28/2024) Only the most recent of3 resultswithin the time period is included. BUN Post Dialysis 9 6 - 19 mg/dL [facility] 09/28/2024 09/29/2024 10: 20 AM EDT Narrative [facility] - 09/29/2024 Unless otherwise specified, test(s) performed at: [facility], [address] [place] [phone] FOUR H AGENT: Andry Spangler M.D. For any questions, please call customer service at FREQUENCY:OTHER Resulting Agency Comment Specimen source: Plasma us Shahab Weinberg MD LAB BLOOD ORDERABLES Final Re sult [facility] See order comments or contact performing lab Unknown, [place] * [facility] NICOL Lab Results (09/28/2024) Only the most recent of3 resultswithin the time period is included. eNPCR 0.69 [facility] eKdrt/V 1.44 [facility] Center eKt/V Gotch 1.44 Knowledg e Center eKt/V ([place]) 1.40 Knowledge Center spKt/V Gotch 1.70 Knowled ge Center spKt/V (Daugirdas II) 1.63 Knowledge Center nPCR_HD 0.74 Knowledge Center WSTDKT/V 2.5 [facility] PCR 35.82 [facility] 09/28/2024 09/28/2024 Nicol Ordering Provider LAB BLOOD ORDERABLES Final Result [facility] Contact Performing lab Unknown, [place] from Last 3 Months Insurance [facility] Medicaid Care Teams Transcription Coordinator Relationship Specialty Start Date End Date Simone Guerra MD [address] [facility] [address] [place] [id number] PCP - General Family Medicine 08/09/24
--- OUTSIDE RECORDS SUMMARY | 2024-11-01 09:27 | XMS_ITS ---
Author Name [facility], [facility] Address [address] [place] [id number] Phone [phone] Organization [facility] e, NA DOCUMENT DISCLAIMER Multiple document versions may exist, please be sure you review the latest version. The information in the [facility] Continuity of Care Document represents a summary [...] l 2024 Atherosclerotic heart diseas e of [place] coronary artery without angina pectoris I25.10 Active [...] renal dialysis Z99.2 Active July 13, 2024 terminal operations supervisor (current) use of anticoagulants Z79.01 Active July [...] Instructions Dosage Route Start Date End Date Stat Vitamin D (Calcitriol) Oral Every Treatment 0.5 mcg Oral September 19, 2024 September 18 026 Active Home Medications Medication Instructions Dosage Route Start Date End Date Stat us calcium carbonate 500 mg calcium (1,250 [...] Sign Value Date / Time Blood Pressure-sitting 173/96 mmHg October 06:28 AM Blood Pressure-standing 167/57 mmHg October 06:28 AM Heart Rate 91 beats per minute October 31 06:28 AM Respiratory Rate 17 breaths per minute October 06:28 AM Temperature 96.7 deg. F October 31, 2024 06:28 AM Weight Vital Sign Value Date / Time Estimated Dry Weight 72 kg September 23 11:59 PM Pre-Dialysis 74.30 kg October 31, 2024 06:28 AM Post-Dialysis 72.20 kg October 31, 2024 06:28 AM Other Other Value Date / Time [...] - Apri l 2024 Hemoglobin x 3 29.1 % 36.0 - 48.0 % Low August 03, 2024 Hemoglobin x 3 30 % 36.0 - 48.0 % Low August 10, 2024 Hemoglobin x 3 28.8 % 36.0 - 48.0 % Low August 17, 2024 Transferrin Sat. (Calc) 25 % 20 - 55 % - August 17, 2024 Iron 50 mcg/dL 30 - 160 mcg/dL - August 17, 025 UIBC/TIBC 147 mcg/dL 155 - 355 [...] 48.0 % Low August Hemoglobin x 3 34.2 % 36.0 - 48.0 % Low August Hemoglobin x 3 34.5 % 36.0 - 48.0 % Low September HGB 11.6 g/dL 12.0 - 16.0 g/dL [...] - 16.0 g/dL Low October 12, 2024 HGB 11.4 g/dL 12.0 - 16.0 g/dL Low October 19, 2024 Hemoglobin x 3 34.2 % 36.0 - 48.0 % Low September HGB 10.9 g/dL 12.0 - 16.0 g/dL Low October 26, 2024 Hemoglobin x 3 32.7 % 36.0 - 48.0 % Low September Metabolic/Renal Result Type Result Value Relevant Reference Range Interpre tation Date BUN 34 mg/dL 6 - 19 mg/dL High August 03, 2024 URR, Calc 79 % 65 - 80 % - August 03, 2024 BUN, Post 7 mg/dL 6 - 19 mg/dL - August 03, 2024 Potassium 4.6 mEq/L 3.5 - 5.1 mEq/L - August 08 Potassium 5.0 mEq/L 3.5 - 5.1 mEq/L - August 15 025 Bicarbonate 23 mEq/L 22 - 29 mEq/L - August 17 25 Sodium 137 mEq/L 136 - 145 mEq/L - August 17 Potassium 4.8 mEq/L 3.5 - 5.1 mEq/L - August 17 Chloride 101 mEq/L 96 - 108 mEq/L - August 17 25 BUN 25 mg/dL 6 - 19 mg/dL [...] mEq/L 96 - 108 mEq/L - September 14 025 BUN 36 mg/dL 6 - 19 [...] Value Relevant Referen ce Range Interpretation Date Krt/V 0.00 No Reference Ran ge Provided - July 22, 2024 spKt/V Gotch 1.93 No Reference Ran ge Provided - August 03, 2024 wstdKt/V without residual 2.6 No Reference Range Provided - August 03, 2024 wstdKt/V 2.6 No Reference Ran ge Provided - August 03, 2024 eKt/V ([facility]) 1.59 No Reference Range Provided - August [...] 276 pg/mL 16 - 80 pg/mL High Apr 2024 Vitamin D 25 Hydroxy 33.4 ng/mL 30.0 - 100.0 ng/mL - July 18, 2024 Magnesium 2.1 mg/dL 1.6 - 2.6 mg/dL - July 18, 2024 Calcium, Total 8.1 mg/dL 8.4 - 10.2 mg/dL Low August 17, 2024 Phosphorus 4.8 mg/dL 2.6 - 4.5 mg/dL High August 17 Ca x P Product 39 0 - 54 - August 17 25 Magnesium 2.0 mg/dL 1.6 - 2.6 mg/dL - August 17 Corrected Ca x P Product 40 0 - 54 - August 17, 2024 PTH-Intact, Plasma 339 pg/mL 16 - 80 pg/mL High August 17, 2024 Ca x P Product 36 0 - 54 - September 14 Phosphorus 4.4 mg/dL 2.6 - 4.5 mg/dL [...] pg/mL 16 - 80 pg/mL High Sep Phosphorus 6.0 mg/dL 2.6 - 4.5 mg/dL High October 19, 2024 Liver/Nutrition Result Type Result Value Relevant Reference Range Interpre tation Date LDH 224 U/L 118 - 273 U/L - July 18 eNPCR 0.70 No Reference Range Provided - August 03, 2024 Glucose 217 mg/dL 70 - 100 mg/dL High August 17 25 Albumin (BCG) 3.6 g/dL 3.5 - 5.2 [...] 45 mg/dL 10 - 30 mg/dL High 2024 HDL 28 mg/dL No Reference Ran [...] 2.50 Ca, 1. 0 Mg, 100 Dextrose ([id number]) Sodium (mEq/L) 137 mEq/L Bicarb Machine Setting [...] Effective Date Resuscitation status Full Code Shahab Sultana Jul 18, 2024 DIALYSIS TREATMENTS Conventional Hemodialysis Date Pre-Treatment Vitals Post-Treatment Maria Guadalupe ls Duration (hr) BFR (mL/min) Dialysate Dialyzer Dialysis Access Meds Admin October 26, 2024 Weight 75.00 kg Weight 72.90 kg 03:32:00 350 2.0 K, 2.50 Ca, 1.0 Mg, 100 Dextrose ([id number]) 160nre Optifl ux Blood Pressure-sitting 169/74 mmHg Blood Pressure-sit ting 131/70 mmHg Blood Pressure-standing 145/65 mmHg Blood Pressure-st anding 109/62 mmHg Heart Rate 90 beats per minute Heart Rate 82 beats per minute Respiratory Rate 18 breaths per minute Respiratory Rate 18 breaths per minute Temperature 97.8 deg. F Temperature 97.5 deg. F October 28, 2024 Weight 74.30 kg Weight 72.30 kg 03:38:00 340 2.0 K, 2.50 Ca, 1.0 Mg, 100 Dextrose ([id number]) 160nre Optiflux Hemodialysis-AV Fistula-Standard, Right Upper Arm, Other/Unknown Vitamin D (Calcitriol) Oral; 0.5mcg,Oral Blood Pressure-sitting 179/89 mmHg Blood Pressure-sit ting 137/67 mmHg Blood Pressure-standing 176/70 mmHg Blood Pressure-st anding 105/52 mmHg Heart Rate 94 beats per minute Heart Rate 83 beats per minute Respiratory Rate 18 breaths per minute Respiratory Rate 18 breaths per minute Temperature 98.2 deg. F Temperature 98.4 deg. F October 31, 2024 Weight 74.30 kg Weight 72.20 kg 03:32:00 350 2.0 K, 2.50 Ca, 1.0 Mg, 100 Dextrose ([id number]) 160nre Optiflux [facility]od[facility] Fistula-Standard, Right Upper Arm, Other/Unknown Vitamin D (Calcitriol) Oral; 0.5mcg,Oral Blood Pressure-sitting 207/87 mmHg Blood Pressure-sit ting 173/96 mmHg Blood Pressure-standing 189/86 mmHg Blood Pressure-st anding 167/57 mmHg Heart Rate 104 beats per minute Heart Rate 91 beats per minute Respiratory Rate 18 breaths per minute Respiratory Rate 17 breaths per minute Temperature 97.7 deg. F Temperature 96.7 deg. F
[2024-11-01 09:54] VITALS: PULSE 77; O2SAT 100
== END 2024-11-01 10:53 | disposition home or self-care (01) ==
LOC: HO.HPSW 09:06
PROVIDERS: PCP Nurse Practitioner Family; Visit Provider Nurse Practitioner Family
DX: I27.20 Pulmonary hypertension, unspecified (principal); J44.9 Chronic obstructive pulmonary disease, unspecified; G47.33 Obstructive sleep apnea (adult) (pediatric); R40.0 Somnolence; R91.8 Other nonspecific abnormal finding of lung field
CPT/HCPCS: 94618; 99214; G2211

== ENCOUNTER → 2024-11-01 09:06 | Outpatient (BNVA) | payer OTHER, SELFPAY | PROVIDERS: PCP Nurse Practitioner Family; Visit Provider Nurse Practitioner Family | DX: J44.9 Chronic obstructive pulmonary disease, unspecified (principal) | CPT/HCPCS: 94618 ==

== ENCOUNTER 2024-11-01 13:12 | Outpatient (AMB) | payer OTHER, SELFPAY ==
--- NOTE | 2024-11-01 13:27 | MHC.OFFVIS ---
Vital Signs 11/01/24 13:28 Height 5 ft Weight 160 lb 0.889 oz BMI 31.3 BP 150/62 H Blood Pressure Location Lt brachial Position Sitting Pulse 77 Pulse Source Pulse Oximeter Intake Visit Reasons: f/u-echo Claims Technician Required: No First Aid Director: First Aid Director Present Allergies No Known Allergies Allergy (Verified 11/01/24 13:30) Medication List - Last Reconciled 11/01/24 by NOEMI Chase albuterol sulfate 2.5 mg (3 mL) inhalation Q4-6H PRN aspirin 81 mg PO DAILY atorvastatin 20 mg PO BEDTIME blood sugar diagnostic (FreeStyle Lite Strips) ONCE PER DAY blood-glucose meter (FreeStyle Lite Meter kit) ONCE PER DAY blood-glucose sensor ([employer]Style Keesha 3 Plus Sensor device) As directed every 15 days blood-glucose,aligner barrel and receiver,cont (FreeStyle Keesha 3 [place]) As directed calcitriol 0.25 mcg PO 3XW clonidine HCl 0.2 mg PO BID esomeprazole magnesium 40 mg PO DAILY hydrochlorothiazide 12.5 mg PO DAILY insulin glargine (Lantus U-100 Insulin) 5 units (0.05 mL) subcut DAILY 90 days insulin lispro (Humalog KwikPen (U-100) Insulin) 5 units (0.05 mL) subcut BID lancets ONCE PER DAY levothyroxine 75 mcg PO DAILY linagliptin 5 mg PO DAILY losartan 100 mg PO DAILY nifedipine ER 30 mg PO DAILY ondansetron HCl 4 mg PO DAILY PRN pen needle, diabetic (Comfort EZ Pen [place]) As directed to inject insulin 3 times a day prazosin 5 mg PO BID repaglinide 0.5 mg PO TID torsemide 40 mg (2 x 20 mg) PO DAILY HPI HPI f/u-echo: Details: Amanda is a 54 year old female with PMH of diabetes, hypertension, hyperlipidemia, end-stage renal disease and now on dialysis, CAD, pulmonary hypertension who presents for follow-up after recent echocardiogram. Today she presents with her daughter and . Daughter does most of talking and translation. She has been feeling well overall. She does have fatigue. No chest discomfort at rest or during activities. No shortness of breath, PND, orthopnea or edema. No lightheadedness, presyncope, syncope, falls. Her blood pressure runs elevated on her non dialysis days. It is reported to be normal following dialysis with a systolic in the 120s and 130s. She reports compliance with all her medications. She is trying to get on the transplant list. [facility] Medical History Long-term insulin use Kidney disease GERD (gastroesophageal reflux disease) Liver disease Edema Spine disorder Surgical History No pertinent past surgical history Family History Mother HTN (hypertension) Diabetes Father HTN (hypertension) Sister Diabetes Brother Diabetes Social History Household Members: Family Both parents involved: No Caregiver staying overnight: No Housing: House Are you a primary physician assistant primary care to a significant other at home: No Do you presently have visiting nurse or other home services: No 75 years or older and lives alone: No Alcohol intake: never Patient Tobacco Use Status: Never used Tobacco e-Cigarette/Vaping Use: Never Used Second Hand Smoke Exposure: No Current occupational status: unemployed and disabled Cognitive needs: No Hearing needs: No Vision needs: No Review of Systems Const All systems reviewed & are unremarkable except as noted in HPI and below ENT Denies dizziness Card Denies chest pain, Denies chest pain at rest, Denies chest pain with activity, Denies rapid heart rate, Denies pedal edema, Denies edema, Denies leg edema, Denies lightheadedness, Denies palpitations, Denies dyspnea, Denies dyspnea on exertion and Denies orthopnea Resp Denies cough, Denies dyspnea and Denies dyspnea on exertion GI Denies hematochezia and Denies change in stool character Musc Denies abnormal gait, Denies limited range of motion, Denies muscle cramps, Denies muscle weakness, Denies numbness, Denies radiating pain into limb, Denies stiffness and Denies tingling Neuro Denies abnormal gait, Denies dizziness, Denies numbness and Denies tingling Endo Denies palpitations Physical Exam Vital Signs: Last Vital Signs Pulse 77 11/01/24 13:28 BP 150/62 H 11/01/24 13:28 BMI result Body Mass Index 31.3 Const General: cooperative, healthy appearing, comfortable and no acute distress Orientation/consciousness: patient oriented x3 Neck Neck: Yes normal visual inspection Resp Effort & Inspection: normal respiratory effort Auscultation: clear to auscultation bilaterally, no rales, no rhonchi and no wheezes Cardio Jugular venous distension: no JVD Rate: regular rate Rhythm: regular rhythm Heart sounds: S1 normal heart sound present, S2 normal heart sound present, no gallops, no murmurs and no rubs Neuro General: patient oriented x3 Extrem General: Yes normal to inspection, No no pedal edema and No calf tenderness Psych Appearance: grossly normal Mental Status: mental status grossly normal Speech and movement: Normal speech and movement present Assessment & Plan Assessment & Plan (1) Atherosclerotic cardiovascular disease: Comment: Cardiac catheterization [place]-May 2024. Normal left main. LAD with calcific proximal plaque. Ramus with diffuse disease, small caliber. Circumflex add proximal 70-80% stenosis followed by 60-70% stenosis. OM1 with proximal 70% and diffuse distal disease. RCA with 60% proximal and distal stenosis. Code(s): I25.10 - Atherosclerotic heart disease of [place] coronary artery without angina pectoris Category: Medical Plan: Known CAD with cardiac catheterization done 05/2024 while in [place]. No coronary stents placed at that time. No anginal symptoms. Echocardiogram done 10/20/2024 showing EF 60-65%, regional wall motion abnormality in the RCA territory. In the absence of symptoms we are continuing with med management. Continue aspirin indefinitely. Continue atorvastatin with ideal LDL goal less than 70. Blood pressure managed by Nephrology. Signs and symptoms of angina reviewed with her in detail. She is hoping to get on the transplant list. Will arrange for cardiology follow-up in 3-4 months to reassess status and symptoms. If symptoms do occur then will likely need repeat cardiac catheterization and possible stenting. (2) HTN (hypertension): Code(s): I10 - Essential (primary) hypertension Category: Medical Qualifiers: Hypertension type: secondary to endocrine disorders Qualified Code(s): I15.2 - Hypertension secondary to endocrine disorders Plan: Blood pressure goal less than 130/80. Runs more elevated on non dialysis days according to patient. Dialysis days are Thursday. Following dialysis blood pressure is reported to be normal. Continue hydrochlorothiazide, losartan, nifedipine, torsemide. Continue follow with Nephrology for blood pressure management. (3) ESRD on hemodialysis: Code(s): N18.6 - End stage renal disease; Z99.2 - Dependence on renal dialysis Category: Medical Plan: As above Plan Time spent on chart review, documentation, interview and assessment Medications: New atorvastatin (Lipitor) dose increased 40 mg PO BEDTIME 90 tabs 3RF Discontinued atorvastatin Discontinued Reason: Doctor's Order 20 mg PO BEDTIME 90 tabs 0RF Coding Level of Care Code Est Pt Level 4 (05434) Complex EM visit Add On G2211 Diagnoses Atherosclerotic cardiovascular disease I25.10 Hypertension due to endocrine disorder I15.2 Hypertension type: secondary to endocrine disorders ESRD on hemodialysis N18.6; Z99.2 Time Spent (min) 28
[2024-11-01 13:28] VITALS: BP 150/62; PULSE 77; BMI 31.3
== END 2024-11-01 14:20 | disposition home or self-care (01) ==
LOC: HO.HCS 13:13
PROVIDERS: PCP Nurse Practitioner Family; Visit Provider Nurse Practitioner Family
DX: I25.10 Atherosclerotic heart disease of native coronary artery without angina pectoris (principal); I15.2 Hypertension secondary to endocrine disorders; N18.6 End stage renal disease; Z99.2 Dependence on renal dialysis
CPT/HCPCS: 99214; G2211

== ENCOUNTER 2024-11-22 07:59 | Outpatient (AMB) | payer OTHER, SELFPAY ==
--- NOTE | 2024-11-22 08:03 | MHC.OFFVIS ---
Vital Signs 11/22/24 08:04 Height 5 ft Weight 164 lb 0.383 oz BMI 32.0 BP 124/46 L Blood Pressure Location Lt brachial Position Sitting Pulse 76 Pulse Source Pulse Oximeter Pulse Oximetry (%) 97 Oxygen Delivery Method Room Air Intake Visit Reasons: T2DM Intake Note: Patient present today for Type 2 Diabetes Mellitus Last Diabetic eye exam: 2 years ago in [place] and does not want a referral Last Podiatry Visit: Doesn't have one Random Glucose: 317 mg/dl HgA1C: 9.0% Automobile Contract Clerk Required: Yes Automobile Contract Clerk Language: Mallory Automobile Contract Clerk Services: Automobile Contract Clerk Offered & Declined Accompanied by: Daughter Allergies No Known Allergies Allergy (Verified 11/22/24 08:10) Medication List - Last Reconciled 11/22/24 by Rody Saavedra MD albuterol sulfate 2.5 mg (3 mL) inhalation Q4-6H PRN aspirin 81 mg PO DAILY atorvastatin (Lipitor) 40 mg PO BEDTIME blood sugar diagnostic (FreeStyle Lite Strips) ONCE PER DAY blood-glucose meter (FreeStyle Lite Meter kit) ONCE PER DAY blood-glucose sensor (FreeStyle Keesha 3 Plus Sensor device) As directed every 15 days blood-glucose,environmental service aide,cont (FreeStyle Keesha 3 [place]) As directed calcitriol 0.25 mcg PO 3XW clonidine HCl 0.2 mg PO BID esomeprazole magnesium 40 mg PO DAILY hydrochlorothiazide 12.5 mg PO DAILY insulin glargine (Basaglar KwikPen U-100 Insulin) 5 units (0.05 mL) subcut DAILY insulin lispro (Humalog KwikPen (U-100) Insulin) 5 units (0.05 mL) subcut BID lancets ONCE PER DAY levothyroxine 75 mcg PO DAILY linagliptin 5 mg PO DAILY losartan 100 mg PO DAILY nifedipine ER 30 mg PO DAILY ondansetron HCl 4 mg PO DAILY PRN pen needle, diabetic (Comfort EZ Pen [place]) As directed to inject insulin 3 times a day prazosin 5 mg PO BID repaglinide 0.5 mg PO TID sevelamer carbonate 800 mg PO QID torsemide 40 mg (2 x 20 mg) PO DAILY HPI Comments Details: 54-year-old female coming in today for initial evaluation of type 2 diabetes mellitus with long-term insulin use with complications of CKD on dialysis. Here today with daughter and History of diabetes moved here from [place] June 2024 Prior therapy: metformin but was discontinued when developed nephropathy Novolin R discontinued inital visit with me 10/11/24 Current regimen: Repaglinide 0.5 mg t.i.d. before meals Insulin Lantus 10 units at bedtime insulin Humalog 5 units b.i.d. before lunch and dinner Linagliptin 5 mg daily Endorses symptoms of hyperglycemia including polyphagia, polyuria, polydipsia. SMBG's Has a meter from [facility] , did not bring meter again today , didnt pickle maker the meter Fasting , 150s some post meals 300s Bedtime : around 270s Overnight: Sometimes around 03 or 04:00 has readings around 70 or 80 Random Glucose: 317 mg/dl, just had coffee this morning A1c POC 11/22/2024: 9% POC 09/01/2024 7.9% Complications Eye exam: Last eye exam was in [facility] , 2-3 years ago , has history of retinal detachement , has ophto referral , they havent called Neuropathy: has symptoms , has podiatry referral Kidney disease: ESRD , Started dialysis June 2024, follows with Dr. Gunderson Macrovascular complications:CAD Statin:atorvatsatin 20 mg daily NGA/ARB: losaratan 100 mg daily Exercise: none Diet control: vegetarian diet Sugar in coffee No desserts He has never had any hospitalizations for hyperglycemia/hypoglycemia. CDE : has appt in November 2024 Fib 4 index score 1.39 based on labs 10/21 Physical exam General: sitting comfortably in no acute distress HEENT: normocephalic/atraumatic, Neck: supple, symmetrical, no thyromegaly , Cardiac: normal heart sounds Pulm: normal breath sounds B/L, no added breath sounds Abd: not distended, no tenderness Extremities: no edema, no signs of myxedema Neuro: AAO x3, Speech: normal, no facial droop, moving all 4 extremities Skin: no rash Foot exam:September 2024 intact sensation to monofilament, intact pulses, intact vibration Laboratory Tests 09/01/24 10/06/24 09:20 07:55 Glucose (Clinic) 208 H Hgb A1c (Clinic) 7.9 H Laboratory Tests 10/11/24 10/20/24 07:53 09:23 Hgb 11.2 L Hct 36.1 L Plt Count 237 Creatinine 4.18 H* Estimated GFR 11 Glucose (Clinic) 206 H AST 28 ALT 22 Triglycerides 255 H Cholesterol 157 LDL Cholesterol, Calc 76 HDL Cholesterol 30 L [facility] Medical History (Updated 11/22/24 @ 08:30 by Rody Saavedra MD) Metabolic dysfunction-associated steatotic liver disease (MASLD) Long-term insulin use Kidney disease GERD (gastroesophageal reflux disease) Liver disease Edema Spine disorder Surgical History No pertinent past surgical history Family History Mother HTN (hypertension) Diabetes Father HTN (hypertension) Sister Diabetes Brother Diabetes Social History Household Members: Family Both parents involved: No Caregiver staying overnight: No Housing: House Are you a primary day care director to a significant other at home: No Do you presently have visiting nurse or other home services: No 75 years or older and lives alone: No Alcohol intake: never Patient Tobacco Use Status: Never used Tobacco e-Cigarette/Vaping Use: Never Used Second Hand Smoke Exposure: No Current occupational status: unemployed and disabled Cognitive needs: No Hearing needs: No Vision needs: No Physical Exam Vital Signs: Last Vital Signs Pulse 76 11/22/24 08:04 BP 124/46 L 11/22/24 08:04 Pulse Ox 97 11/22/24 08:04 Oxygen Delivery Method Room Air 11/22/24 08:04 BMI result Body Mass Index 32.0 Results AMB Hemoglobin A1c AMB Hemoglobin A1c 9.0 % Last Edit by TIMOTEO Noriega on 11/22/24 08:32 Results Reviewed Results Reviewed: Laboratory Last Values Glucose (Clinic) 317 mg/dL (60-115) H 11/22/24 08:13 Assessment & Plan Assessment & Plan (1) Diabetes mellitus type 2 with complications: Code(s): E11.8 - Type 2 diabetes mellitus with unspecified complications Category: Medical Plan: 54-year-old female coming in today for fup of type 2 diabetes mellitus. With long-term insulin use with complications of ESRD on dialysis, neuropathy, retinopathy, CAD A1c POC today 11/22/2024 up at 9% from August 2024 at 7.9%. She has been hyperglycemic with blood sugars ranging in the 200s to 300s per patient. Did not bring glucometer again today. We had prescribed freestyle Keesha 3 but it was costing them about 200 dollars per month co-pay so they decided not to pick it up. She moved in from a [place] recently, and was started on dialysis in June 2024. Again do not have much data today because it did not bring in glucometer but per them she has been having elevated both fasting and post meal readings. Though she has been having some readings around 70 or 80 overnight when she wakes up with symptoms. She is also eating high carb meals. Plan: -increase Lantus from 10 units to 12 units daily at bedtime, if continues to have fasting blood sugars greater than 140 mg/dL can increase to 14 units -increase insulin Humalog from 5 units to 8 units before lunch, continue 5 units before dinner -continue Tradjenta -discontinue repaglinide -podiatry referral in place, given number to call again -already has a ophthalmology referral, discussed importance of eye visits, again given number to call - hypoglycemia education done -discussed complications of uncontrolled hyperglycemia -advised 30 minutes of exercise 5 days a week (2) Long-term insulin use: Code(s): Z79.4 - alf (current) use of insulin Category: Medical Plan: See above (3) Metabolic dysfunction-associated steatotic liver disease (MASLD): Code(s): K76.0 - Fatty (change of) liver, not elsewhere classified Category: Medical Plan: Fib 4 index score 1.39 which is indeterminate, Plan: -ordered liver elastography Plan I spent 30 minutes in reviewing the record, seeing the patient and documenting in the medical record. Orders: Orders AMB Hemoglobin A1c Today E11.8 - Type 2 diabetes mellitus with unspecified complications, Z13.9 - Encounter for screening, unspecified US abdomen valera w elastography Today E11.8 - Type 2 diabetes mellitus with unspecified complications, K76.0 - Fatty (change of) liver, not elsewhere classified Medications: Changed From insulin glargine (Basaglar KwikPen U-100 Insulin) 5 units (0.05 mL) subcut DAILY 3 mL 4RF E11.8 - Type 2 diabetes mellitus with unspecified complications, Z79.4 - alf (current) use of insulin To insulin glargine (Basaglar KwikPen U-100 Insulin) 12 units (0.12 mL) subcut DAILY 3 mL 4RF E11.8 - Type 2 diabetes mellitus with unspecified complications, Z79.4 - terminal block assembler (current) use of insulin From insulin lispro (Humalog KwikPen (U-100) Insulin) 5 units (0.05 mL) subcut BID 3 mL 5RF To insulin lispro (Humalog KwikPen (U-100) Insulin) subcutaneously 2 times a day; 8 units before lunch, 5 units before dinner 3 mL 5RF Discontinued repaglinide Discontinued Reason: Doctor's Order 0.5 mg PO TID 270 tabs 0RF Patient Instructions: Increase lantus to 12 units daily at bedtime, if after 5 days if using this , morning fasting numbers are still higher than 140 mg/dl, increase to 14 units daily Increase insulin humalog from 5 units to 8 units before lunch and continue same 5 units before dinner Continue linagliptin Discontinue repaglinide BRING METER TO ALL VISITS Do liver ultrasound Coding Level of Care Code Est Pt Level 4 (57392) Complex EM visit Add On G2211 Diagnoses Diabetes mellitus type 2 with complications E11.8 Long-term insulin use Z79.4 Metabolic dysfunction-associated steatotic liver disease (MASLD) K76.0 Time Spent (min) 30
[2024-11-22 08:04] VITALS: BP 124/46; PULSE 76; O2SAT 97; BMI 32.0
--- OUTSIDE RECORDS SUMMARY | 2024-11-22 08:04 | XMS_ITS | Encounter Summary ---
Author Organization [facility], Address [address] [place] [address] Phone Care Team Providers Care Poultry Slaughterer Name Role Phone Simone Guerra MD Primary Care Provider [phone] Encounter Details Date Type Department Care Team (Late st Contact Info) Description 11/16/2024 Orders Only [facility] [address] [place] [phone] Shahab Weinberg MD [address] [place] [address] [place] [phone] Social History Tobacco Use Types Packs/Day Years Used Date Smoking Tobacco: Never Assessed Comments Unknown Sex and Gender Information Value Date Recorded Sex Assigned at Not on file Legal Sex Female 8:56 AM EDT Gender Identity Not on file Sexual Orientation Not on file documented as of this encounter Plan of Treatment Upcoming Encounters Date Type Department Care Team (Late st Contact Info) Description 12/27/2024 9:30 AM EDT Office Visit [facility], - [facility] [address] [place] [address] [place] [phone] documented as of this encounter Procedures Procedure Name Priority Date/Time Associated Diagnosis Comments THYROIDS Routine 11/16/2024 IMMUNO CHEMISTRY Routine 11/16/2024 HEMATOLOGY Routine 11/16/2024 CHEMISTRY Routine 11/16/2024 CHEMISTRY Routine 11/16/2024 documented in this encounter Results * (ABNORMAL) THYROIDS (11/16/2024) Pathologist [facility] TSH 3.056(H) 0.300 - 3.000 mIU/L [facility] Comment: The reference range of 0.300-3.000 mIU/L is recommended by the [place] [employer]ocrin[employer] (AACE). An ESRD population contains about 20% of individuals with TSH of up to 20 mIU/L and normal free T4 consistent with non-thyroidal illness. ESRD patients with true hypothyroidism develop persistent values above 20 mIU/L. 11/16/2024 11/17/2024 12: 11 PM EDT Narrative [facility] - 11/17/2024 Unless otherwise specified, test(s) performed at: [facility], [address] [place] [address] OPERATIONAL REVIEW SERGEANT: Andry Spangler M.D. For any questions, please call customer service at FREQUENCY:MONTHLY Resulting Agency Comment Specimen source: Serum Shahab Weinberg MD LAB BLOOD ORDERABLES Final Re sult Performing Organization Address City/[facility]/ZIP Co de Phone Number [employer] See order comments or contact performing lab Unknown, [place] * IMMUNO CHEMISTRY (11/16/2024) Pathologist [facility] Hep B Surface Ag Negative Negative [facility] 11/16/2024 11/17/2024 12: 11 PM EDT Narrative Resulting Agency Comment Specimen source: Serum Shahab Weinberg MD LAB BLOOD ORDERABLES Final Re sult [facility] See order comments or contact performing lab Unknown, [place] * (ABNORMAL) [facility] (11/16/2024) Pathologist [facility] BUN 35(H) 6 - 19 mg/dL [facility] Creatinine 5.67(H) 0.60 - 1.30 mg/dL [facility] BUN/Creatinine Ratio 6.2(L) 10.0 - 20.0 [facility] Albumin 3.9 3.5 - 5.2 g/dL [facility] 11/16/2024 11/17/2024 12: 11 PM EDT Narrative [facility] - 11/17/2024 Unless otherwise specified, test(s) performed at: [facility], [address] [place] [id number] OPERATIONAL REVIEW SERGEANT: Andry Spangler M.D. For any questions, please call customer service at FREQUENCY:MONTHLY Resulting Agency Comment Specimen source: Serum Shahab Weinberg MD LAB BLOOD ORDERABLES Final Re sult Performing Organization Address [facility] Co de Phone Number [employer] See order comments or contact performing lab Unknown, [place] * (ABNORMAL) [facility] (11/16/2024) PTH 240(H) 16 - 80 pg/mL [facility] 11/16/2024 11/17/2024 10: 24 AM EDT Narrative [facility] - 11/17/2024 Unless otherwise specified, test(s) performed at: [facility], [address] [place] [id number] OPERATIONAL REVIEW SERGEANT: Andry Spangler M.D. For any questions, please call customer service at FREQUENCY:MONTHLY Resulting Agency Comment Specimen source: Plasma Shahab Weinberg MD LAB BLOOD ORDERABLES Final Re sult Performing Organization Address [facility] de Phone Number [employer] See order comments or contact performing lab Unknown, [place] * (ABNORMAL) HEMATOLOGY (11/16/2024) Hemoglobin 11.2(L) 12.0 - 16.0 g/dL [facility] Hemoglobin x 3 33.6(L) 36.0 - 48.0 % [facility] 11/16/2024 11/17/2024 9:1 1 AM EDT Narrative [facility] - 11/17/2024 Unless otherwise specified, test(s) performed at: [facility], [address] [place] [id number] OPERATIONAL REVIEW SERGEANT: Andry Spangler M.D. For any questions, please call customer service at FREQUENCY:MONTHLY Resulting Agency Comment Specimen source: Blood us Shahab Weinberg MD LAB BLOOD ORDERABLES Final Re sult [facility] See order comments or contact performing lab Unknown, [place] documented in this encounter Visit Diagnoses Not on filedocumented in this encounter Care Teams Poultry Slaughterer Relationship Specialty Start Date End Date Simone Guerra MD [address] [address] PCP - General Family Medicine 08/09/24 documented as of this encounter
--- OUTSIDE RECORDS SUMMARY | 2024-11-22 08:04 | XMS_ITS ---
Author Name [facility] Address [address] [place] [address] Phone [phone] Organization [facility] e, NA DOCUMENT DISCLAIMER Multiple document versions may exist, please be sure you review the latest version. 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 Active July 13, 2024 ALLERGIES AND ADVERSE REACTIONS No Known Allergies SOCIAL HISTORY Tobacco Use Status Tobacco Type Never smoker - Caregiver Characteristics Need Level ADL Type Relationship of Caregiver Requires some assistance Bathing Shoppin g Meal preparation Laundry Housekeeping Family Characteristics of Home environment Housing Status Patient Resides With patient is living wi th her in her daughter's home Gender and Sex Information Gender Identity Sexual Orientation Female Heterosexual MEDICATIONS Prescribed Medications for Dialysis Treatments Medication Instructions Dosage Route Start Date End Date [facility] Vitamin D (Calcitriol) Oral Every Treatment 0.5 mcg Oral September 19, 2024 September 18, 026 Active Home Medications Medication Instructions Dosage Route Start Date End Date Status Adult Low Dose Aspirin 81 mg Take by mouth once a day 1 tablet ORAL November 07, 2024 Active atorvastatin 20 mg Take by mouth every night at bedtime 1 tablet ORAL November 07, 2024 Active calcium carbonate 500 mg calcium (1,250 mg) Take by mouth every night 2 tablet ORAL October 10, 2024 Active clonidine HCl 0.2 mg Take by mouth three times a day 1 tablet ORAL September 23, 2024 Active Lantus U-100 Insulin 100 unit/mL Inject subcutaneously once a day 10 unit SUBCUTANEOUS November 07, 2024 Active levothyroxine 75 mcg Take by mouth once a day 1 tablet ORAL November 07, 2024 Active losartan 100 mg Take by mouth once a day 1 tablet ORAL July 25, 2024 Active nifedipine 30 mg Take by mouth once a day 1 tablet ORAL July 25, 2024 Active ondansetron HCl 4 mg Take by mouth once a day as needed 1 tablet ORAL July 22, 2024 Active prazosin 5 mg Take by mouth twice a day 1 capsule ORAL November 07, 2024 Active repaglinide 0.5 mg Take by mouth three times a day 1 tablet ORAL November 07, 2024 Active Sevelamer Carbonate Tablet 800 mg Take By Mouth Every 24 hours With Meals 4 Tablet By Mouth November 10, 2024 October 17, 2025 Active torsemide 20 mg Take by mouth once a day 2 tablet ORAL November 07, 2024 Active Tradjenta 5 mg Take by mouth once a day 1 tablet ORAL November 07, 2024 Active cefixime 200 Take by mouth as directed 1 tablet by mouth November 07, 2024 Discontinued chlorpheniramine maleate 4 mg Take by mouth once a day as needed 1 tablet ORAL November 07, 2024 Discontinued ketorolac 10 mg Take by mouth as needed 1 tablet ORAL November 07, 2024 Discontinued mebeverine hydrochlorid 135/5 Take by mouth as directed 1 tablet by mouth November 07, 2024 Discontinued tramadol-acetamino phen 37.5-325 mg Take by mouth every six to eight hours as needed 1 tablet ORAL November 07, 2024 Discontinued Tylenol 325 mg Take by mouth every six to eight hours as needed for pain 2 tablet ORAL November 07, 2024 Discontinued VITAL SIGNS Post-Treatment Vital Signs Vital Sign Value Date / Time Blood Pressure-sitting 167/71 mmHg October 11:48 AM Blood Pressure-standing 165/75 mmHg October 292024 11:48 AM Heart Rate 93 beats per minute November 18 025 11:48 AM Respiratory Rate 18 breaths per minute October 11:48 AM Temperature 97.2 deg. F November 18, 2024 11:48 AM Weight Vital Sign Value Date / Time Estimated Dry Weight 72.5 kg November 09, 2024 11:59 PM Pre-Dialysis 74.30 kg November 18, 2024 11:48 AM Post-Dialysis 72.40 kg November 18, 2024 11:48 AM Other Other Value Date / Time Height 160 cm August 12, 2024 12: 00 AM Body Mass Index 28.32 kg/m2 November 18, 2024 12:08 PM LAB RESULTS Hematology Result Type Result [...] - 400 1000/mcL - Apri l 2024 Transferrin Sat. (Calc) 25 % 20 - 55 % - August 17, 2024 UIBC/TIBC 147 mcg/dL 155 - 355 mcg/dL [...] % 36.0 - 48.0 % Low September Hemoglobin x 3 34.8 % 36.0 - [...] 10 - 291 ng/mL High October 12 025 Hemoglobin x 3 33.9 % 36.0 - 48.0 % Low September Hemoglobin x 3 34.2 % 36.0 - 48.0 % Low September HGB 10.9 g/dL 12.0 - 16.0 g/dL Low October 26, 2024 Hemoglobin x 3 32.7 % 36.0 - 48.0 % Low September HGB 11.6 g/dL 12.0 - 16.0 g/dL Low October Hemoglobin x 3 34.8 % 36.0 - 48.0 % Low November 02, 2024 HGB 11.6 g/dL 12.0 - 16.0 g/dL Low October 282024 Hemoglobin x 3 34.8 % 36.0 - 48.0 % Low November 09, 2024 Hemoglobin x 3 33.6 % 36.0 - 48.0 % Low November 16, 2024 HGB 11.2 g/dL 12.0 - 16.0 g/dL Low October 292024 TIBC (Calc) 261 mcg/dL 185 - 515 mcg/dL - November 18, 2024 Transferrin Sat. (Calc) 34 % 20 - 55 % - November 18, 2024 Ferritin 1197 ng/mL 10 - 291 ng/mL High November 18, 2024 Iron 88 mcg/dL 30 - 160 mcg/dL - October UIBC/TIBC 173 mcg/dL 155 - 355 mcg/dL - October 292024 Metabolic/Renal Result Type Result Value Relevant Referen ce Range Interpretation Date Potassium 4.7 mEq/L 3.5 - 5.1 mEq/L - August 29, 2024 BUN 25 mg/dL 6 - 19 mg/dL High August 31 BUN, Post 7 mg/dL 6 - 19 mg/dL - August 31 URR, Calc 72 % 65 - 80 % - August 31, 2024 Bicarbonate 24 mEq/L 22 - 29 mEq/L - September 14 Creatinine, Serum 4.45 mg/dL 0.60 - 1.30 [...] mEq/L 22 - 29 mEq/L - October 12 025 Chloride 99 mEq/L 96 - 108 mEq/L - October 12 025 Sodium 136 mEq/L 136 - 145 mEq/L - October 12, 2024 Potassium 5.7 mEq/L 3.5 - 5.1 mEq/L High October 12, 2024 Creatinine, Serum 5.41 mg/dL 0.60 - 1.30 mg/dL High October 12, 2024 BUN/Creat Ratio 7.4 10.0 - 20.0 Low October 12, 2024 BUN 38 mg/dL 6 - 19 mg/dL High November 02 URR, Calc 74 % 65 - 80 % - November 02 BUN, Post 10 mg/dL 6 - 19 mg/dL - November 02 BUN/Creat Ratio 6.2 10.0 - 20.0 Low October 292024 Creatinine, Serum 5.67 mg/dL 0.60 - 1.30 mg/dL High November 16, 2024 BUN 35 mg/dL 6 - 19 mg/dL High November 16 Chloride 102 mEq/L 96 - 108 mEq/L - November 18, 2024 Bicarbonate 21 mEq/L 22 - 29 mEq/L Low November 18, 2024 Sodium 135 mEq/L 136 - 145 mEq/L Low October Potassium 6.5 mEq/L 3.5 - 5.1 mEq/L High October HD Adequacy Result Type Result Value Relevant [...] 31, 2024 spKt/V (Daugirdas II) 1.46 No Reference Range Provided - August 31, 2024 wstdKt/V [...] 28, 2024 spKt/V (Daugirdas II) 1.63 No Reference Range Provided - September 28, 2024 Krt/V 0.00 No Reference Ran ge Provided - November 02, 2024 spKt/V (Daugirdas II) 1.52 No Reference Range Provided - November 02, 2024 wstdKt/V 2.4 No Reference Ran ge Provided - November 02, 2024 eKt/V ([place]) 1.31 No Reference Range Provided - November 02, 2024 wstdKt/V, residual 0.0 No Reference Range Provided - November 02, 2024 wstdKt/V without residual 2.4 No Reference Range Provided - November 02, 2024 spKt/V Gotch 1.55 No Reference Ran ge Provided - November 02, 2024 Bone/Mineral Result Type Result Value Relevant Referen ce Range Interpretation Date PTH-Intact, Plasma 276 pg/mL 16 - 80 pg/mL High Jun Vitamin D 25 Hydroxy 33.4 ng/mL 30.0 - 100.0 ng/mL - July 18, 2024 Magnesium 2.1 mg/dL 1.6 - 2.6 mg/dL - July 18, 2024 Magnesium 2.0 mg/dL 1.6 - 2.6 mg/dL - August 17 PTH-Intact, Plasma 339 pg/mL 16 - 80 [...] - 4.5 mg/dL High October 19, 2024 PTH-Intact, Plasma 240 pg/mL 16 - 80 pg/mL High Oct Ca x P Product 55 0 - 54 High November 18, 2024 Corrected Ca x P Product 54 0 - 54 - November 18, 2024 Calcium, Total 9.4 mg/dL 8.4 - 10.2 mg/dL - 2024 Phosphorus 5.8 mg/dL 2.6 - 4.5 mg/dL High October Liver/Nutrition Result Type Result Value Relevant Reference Range Interpre tation Date LDH 224 U/L 118 - 273 U/L - July 18 025 eNPCR 0.49 No Reference Range Provided - [...] 70 - 100 mg/dL High October 12 025 eNPCR 0.68 No Reference Range Provided - November 02, 2024 Albumin (BCG) 3.9 g/dL 3.5 - 5.2 g/dL - November 16, 2024 SGPT (ALT) 18 U/L 7 - 52 U/L - November 18 Albumin (BCG) 4.1 g/dL 3.5 - 5.2 g/dL - November 18, 2024 Lipid Result Type Result Value Relevant [...] Result Value Relevant Reference Range Interpre tation HCV s/co ratio 0.06 0.00 - 0.79 [...] - 3.000 mIU/L High October 12, 2024 TSH 3rd Generation 3.056 mIU/L 0.300 - 3.000 mIU/L High November 16, 2024 Trace Elements Result Type Result Value [...] (HBsAg) Negative No Reference Range Provided - November 16, 2024 DIALYSIS PRESCRIPTION Conventional Hemodialysis Data Element Value Order Date/Time November 09, 2024 Frequency 3X Week Treatment Days MonWedFri Dialyzer [id number] Optiflux Treatment Time (Total Minutes) 210 min Blood Flow Rate (mL/min) 350 mL/min Dialysate Flow Rate Manual 800 Estimated Dry Weight 72.5 kg Dialysate Concentrate 2.0 K, 2.50 Ca, 1. 0 Mg, 100 Dextrose ([id number]) Sodium (mEq/L) 137 mEq/L Bicarb Machine Setting [...] (mL/min) Dialysate Dialyzer Dialysis Access Meds Admin Augus 2024 Weight 73.80 kg Weight 73.80 kg 03:36:00 350 2.0 K, 2.50 Ca, 1.0 Mg, 100 Dextrose ([id number]) 160nre Optifl ux Blood Pressure-sitting 196/85 mmHg Blood Pressure-sit ting 109/53 mmHg Blood Pressure-standing 192/80 mmHg Blood Pressure-st anding 100/43 mmHg Heart Rate 112 beats per minute Heart Rate 83 beats per minute Respiratory Rate 16 breaths per minute Respiratory Rate 18 breaths per minute Temperature 98.2 deg. F Temperature 98.6 deg. F November 16, 2024 Weight 74.30 kg Weight 73.30 kg 03:52:00 350 2.0 K, 2.50 Ca, 1.0 Mg, 100 Dextrose ([id number]) 160nre Optiflux Hemodialysis-AV Fistula-Standard, Right Upper Arm, Other/Unknown Vitamin D (Calcitriol) Oral; 0.5mcg,Oral Blood Pressure-sitting 199/81 mmHg Blood Pressure-sit ting 125/58 mmHg Blood Pressure-standing 210/82 mmHg Blood Pressure-st anding 110/55 mmHg Heart Rate 94 beats per minute Heart Rate 86 beats per minute Respiratory Rate 16 breaths per minute Respiratory Rate 16 breaths per minute Temperature 97.7 deg. F Temperature 98.3 deg. F November 18, 2024 Weight 74.30 kg Weight 72.40 kg 03:32:00 360 2.0 K, 2.50 Ca, 1.0 Mg, 100 Dextrose ([id number]) 160nre Optiflux Hemodialysis-AV Fistula-Standard, Right Upper Arm, Other/Unknown Vitamin D (Calcitriol) Oral; 0.5mcg,Oral Blood Pressure-sitting 231/88 mmHg Blood Pressure-sit ting 167/71 mmHg Blood Pressure-standing 223/83 mmHg Blood Pressure-st anding 165/75 mmHg Heart Rate 97 beats per minute Heart Rate 93 beats per minute Respiratory Rate 18 breaths per minute Respiratory Rate 18 breaths per minute Temperature 96.5 deg. F Temperature 97.2 deg. F
--- OUTSIDE RECORDS SUMMARY | 2024-11-22 08:04 | XMS_ITS | Clinical Summary ---
Author Organization [facility], Address [address] [place] [address] Phone Care Team Providers Care Packaging Designer Name Role Phone Simone Guerra MD Primary Care Provider +1- [phone] Allergies No known active allergies Active Problems Problem Noted Date Diagnosed Date End stage renal disease 07/18/2024 Encounters Date Type Department Care Team Description 11/18/2024 Orders Only [facility] [address] [address] Shahab Weinberg MD 11/16/2024 Orders Only [facility] [address] [address] Shahab Weinberg MD 11/14/2024 Treatment [facility], [address] [place] [address] Ally Dodge APRN End stage renal disease; Dependence on renal dialysis 11/11/2024 Treatment [facility], [address] [place] [address] Nayan Gunderson MD End stage renal disease; Dependence on renal dialysis; Type 2 diabetes mellitus with diabetic chronic kidney disease 11/09/2024 Orders Only [facility] [address] [address] Shahab Weinberg MD 11/07/2024 Treatment [facility], [address] [place] [address] Ally Dodge APRN End stage renal disease; Dependence on renal dialysis 11/02/2024 Orders Only [facility] [address] [address] Shahab Weinberg MD 10/31/2024 Treatment [facility], [address] [facility] [place] [address] Ally Dodge APRN End stage renal disease; Dependence on renal dialysis 10/27/2024 8:45 AM EDT Office Visit [facility], - [facility] [address] [place] [address] Jamie Momin MD 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 Orders Only [facility] [address] [address] Shahab Weinberg MD 10/21/2024 Treatment [facility], [address] [place] [address] Ally Dodge APRN End stage renal disease; Dependence on renal dialysis 10/19/2024 Orders Only [facility] [address] [address] Shahab Weinberg MD 10/17/2024 Treatment [facility], [address] [facility] [place] [address] Ally Dodge APRN End stage renal disease; Dependence on renal dialysis 10/12/2024 Orders Only [facility] [address] [address] Shahab Weinberg MD 10/10/2024 Treatment [facility], [address] [place] [address] Ally Dodge APRN End stage renal disease; Dependence on renal dialysis 10/07/2024 Treatment [facility], [address] [place] [address] Nayan Gunderson MD End stage renal disease; Dependence on renal dialysis; Type 2 diabetes mellitus with diabetic chronic kidney disease 10/05/2024 Orders Only [facility] [address] [address] Shahab Weinberg MD 09/28/2024 Orders Only [facility] [address] [address] Shahab Weinberg MD 09/23/2024 Treatment [facility] [address] [place] [address] Nayan Gunderson MD End stage renal disease; Dependence on renal dialysis; Type 2 diabetes mellitus with diabetic chronic kidney disease 09/21/2024 Orders Only [facility] [address] [address] Shahab Weinberg MD 09/14/2024 Orders Only [facility] [address] [address] Shahab Weinberg MD 09/12/2024 Treatment [facility] [address] [place] [address] Ally Dodge APRN End stage renal disease; Dependence on renal dialysis; Type 2 diabetes mellitus with diabetic chronic kidney disease 09/09/2024 Treatment [facility] [address] [place] [address] Nayan Gunderson MD End stage renal disease; Dependence on renal dialysis; Type 2 diabetes mellitus with diabetic chronic kidney disease 09/07/2024 Orders Only [facility] [address] [address] Shahab Weinberg MD 09/05/2024 Treatment [facility] [address] [place] [address] Ally Dodge APRN End stage renal disease; Dependence on renal dialysis 08/31/2024 Orders Only [facility] [address] [address] Shahab Weinberg MD 08/29/2024 Orders Only [facility] [address] [address] Shahab Weinberg MD 08/29/2024 Treatment [facility], [address] [place] [address] Ally Dodge APRN End stage renal disease; Dependence on renal dialysis 08/24/2024 Orders Only [facility] [address] [address] Shahab Weinberg MD 08/22/2024 Orders Only [facility] [address] [address] Shahab Weinberg MD from Last 3 Months Social History Tobacco [...] Visit [facility] [address] [place] [phone] Health Maintenance Due Date Last Done Comments [...] Procedure Name Priority Date/Time Associated Diagnosis Comments CHEMISTRY Routine 11/18/2024 THYROIDS Routine 11/16/2024 IMMUNO CHEMISTRY Routine 11/16/2024 CHEMISTRY Routine 11/16/2024 CHEMISTRY Routine 11/16/2024 HEMATOLOGY Routine 11/16/2024 HEMATOLOGY Routine 11/09/2024 [facility] RESULTS Routine 11/02/2024 HD KINETICS Routine 11/02/2024 POST CHEMISTRY Routine 11/02/2024 CHEMISTRY Routine 11/02/2024 HEMATOLOGY Routine 11/02/2024 HEMATOLOGY Routine 10/26/2024 CHEMISTRY Routine 10/19/2024 HEMATOLOGY [...] 08/29/2024 HEMATOLOGY Routine 08/24/2024 CHEMISTRY Routine 08/22/2024 from Last 3 Months Results * (ABNORMAL) [facility] Chemistry (11/18/2024) Only the most recent of13 resultswithin the time period is included. Sodium 135(L) 136 - 145 mEq/L [facility] Potassium 6.5(H) 3.5 - 5.1 mEq/L [facility] Chloride 102 96 - 108 mEq/L [facility] Bicarbonate (CO2) 21(L) 22 - 29 mEq/L [facility] Calcium 9.4 8.4 - 10.2 mg/dL [facility] Corrected Calcium 9.3 8.4 - 10.2 mg/dL [facility] Comment: Corrected Calcium is not equivalent to measured Ionized Calcium. Phosphorus 5.8(H) 2.6 - 4.5 mg/dL [facility] Calcium Phosphorus Product 55(H) 0 - 54 [facility] Calcium Phosporus Product, Cor 54 0 - 54 [facility] ALT (SGPT) 18 7 - 52 U/L [facility] Albumin 4.1 3.5 - 5.2 g/dL [facility] Ferritin 1,197(H) 10 - 291 ng/mL [facility] Iron 88 30 - 160 mcg/dL [facility] UIBC 173 155 - 355 mcg/dL [facility] TIBC 261 185 - 515 mcg/dL [facility] Iron Saturation (TSat) 34 20 - 55 % [facility] 11/18/2024 11/19/2024 11: 40 AM EDT Narrative [facility] 11/19/2024 Unless otherwise specified, test(s) performed at: [facility], [address] [place] [address] ANALYTICS DIRECTOR: Andry Spangler M.D. For any questions, please call customer service at FREQUENCY:OTHER Resulting Agency Comment Specimen source: Serum us Shahab Weinberg MD LAB BLOOD ORDERABLES Final Re sult [facility] See order comments or contact performing lab Unknown, [place] * (ABNORMAL) THYROIDS (11/16/2024) Only the most recent of3 resultswithin the time period is included. TSH 3.056(H) 0.300 - 3.000 mIU/L [facility] Comment: The reference range of 0.300-3.000 mIU/L is recommended by the [place] [employer]ocrin[employer] (AACE). An ESRD population contains about 20% of individuals with TSH of up to 20 mIU/L and normal free T4 consistent with non-thyroidal illness. ESRD patients with true hypothyroidism develop persistent values above 20 mIU/L. 11/16/2024 11/17/2024 12: 11 PM EDT Narrative [facility] 11/17/2024 Unless otherwise specified, test(s) performed at: [facility], [address] [place] [address] ANALYTICS DIRECTOR: Andry Spangler M.D. For any questions, please call customer service at FREQUENCY:MONTHLY Resulting Agency Comment Specimen source: Serum Shahab Weinberg MD LAB BLOOD ORDERABLES Final Re sult Performing Organization Address [facility] de Phone Number [facility] See order comments or contact performing lab Unknown, [place] * IMMUNO CHEMISTRY (11/16/2024) Only the most recent of3 resultswithin the time period is included. Hep B Surface Ag Negative Negative [facility] 11/16/2024 11/17/2024 12: 11 PM EDT Narrative Resulting Agency Comment Specimen source: Serum Shahab Weinberg MD LAB BLOOD ORDERABLES Final Re sult Performing Organization Address [facility] Phone Number [facility] See order comments or contact performing lab Unknown, [place] * (ABNORMAL) HEMATOLOGY (11/16/2024) Only the most recent of13 resultswithin the time period is included. Hemoglobin 11.2(L) 12.0 - 16.0 g/dL [facility] Hemoglobin x 3 33.6(L) 36.0 - 48.0 % [facility] 11/16/2024 11/17/2024 9:1 1 AM EDT Narrative [facility] - 11/17/2024 Unless otherwise specified, test(s) performed at: [facility], [address] [place] [address] ANALYTICS DIRECTOR: Andry Spangler M.D. For any questions, please call customer service at FREQUENCY:MONTHLY Resulting Agency Comment Specimen source: Blood Shahab Weinberg MD LAB BLOOD ORDERABLES Final Re sult Performing Organization Address [facility] de Phone Number [facility] See order comments or contact performing lab Unknown, [place] * HD KINETICS (11/02/2024) Only the most recent of3 resultswithin the time period is included. % Urea Reduction 74 65 - 80 % [facility] 11/02/2024 11/03/2024 11: 48 AM EDT Narrative Resulting Agency Comment Specimen source: Plasma Shahab Weinberg MD LAB BLOOD ORDERABLES Final Re sult Performing Organization Address City/[facility]/ZIP Co de Phone Number [facility] See order comments or contact performing lab Unknown, [place] * POST CHEMISTRY (11/02/2024) Only the most recent of3 resultswithin the time period is included. BUN Post Dialysis 10 6 - 19 mg/dL [facility] 11/02/2024 11/03/2024 11: 48 AM EDT Narrative [facility] - 11/04/2024 Unless otherwise specified, test(s) performed at: [facility], [address] [place] [address] ANALYTICS DIRECTOR: Andry Spangler M.D. For any questions, please call customer service at FREQUENCY:OTHER Resulting Agency Comment Specimen source: Plasma Shahab Weinberg MD LAB BLOOD ORDERABLES Final Re sult Performing Organization Address [facility] Co de Phone Number [facility] See order comments or contact performing lab Unknown, [place] * [facility] Results (11/02/2024) Only the most recent of3 resultswithin the time period is included. WSTDKT/V 2.4 [facility] eKt/V (Tattersall) 1.31 [facility] PCR 37.34 [facility] spKt/V (Daugirdas II) 1.52 [facility] eKdrt/V 1.32 [facility] eKt/V Gotch 1.32 [facility] nPCR_HD 0.75 [facility] eNPCR 0.68 [facility] spKt/V Gotch 1.55 [facility] 11/02/2024 11/02/2024 us Nicol Ordering Provider LAB BLOOD ORDERABLES Final Result [facility] Contact Performing lab [place], [place] from Last 3 Months Insurance [employer] Medicaid Care Teams Packaging Designer Relationship Specialty Start Date End Date Simone Guerra MD [address] [facility] [address] [place] [address] PCP - General Family Medicine 08/09/24
--- OUTSIDE RECORDS SUMMARY | 2024-11-22 08:04 | XMS_ITS | Encounter Summary ---
Author Organization [facility], Address [address] [place] [address] Phone Care Team Providers Care Manager Respiratory Care Name Role Phone Simone Guerra MD Primary Care Provider [phone]- [phone] Encounter Details Date Type Department Care Team (Late st Contact Info) Description 11/18/2024 Orders Only [facility] [address] [place] [phone] Shahab Weinberg MD [address] [place] [address] [place] [phone] Social History Tobacco Use Types Packs/Day Years [...] Visit [facility], - V[facility] Access Center [address] [place] [address] [place] [phone] documented as of this encounter Procedures Procedure Name Priority Date/Time Associated Diagnosis Comments CHEMISTRY Routine 11/18/2024 documented in this encounter Results * (ABNORMAL) [facility] (11/18/2024) Sodium 135(L) 136 - 145 mEq/L [facility] [...] 11/18/2024 11/19/2024 11: 40 AM EDT Narrative [facility] - 11/19/2024 Unless otherwise specified, test(s) performed at: [facility], [address] [place] [address] CHIMNEY BUILDER: Andry Spangler M.D. For any questions, please call customer service at FREQUENCY:OTHER Resulting Agency Comment Specimen source: Serum us Shahab Weinberg MD LAB BLOOD ORDERABLES Final Re sult [facility] See order comments or contact performing lab Unknown, [place] documented in this encounter Visit Diagnoses Not on filedocumented in this encounter Care Teams Manager Respiratory Care Relationship Specialty Start Date End Date Simone Guerra MD 10 [facility] [address] [place] [address] PCP - General Family Medicine 08/09/24 documented as of this encounter
[2024-11-22 08:17] LABS: Glucose, Whole Blood 317 mg/dL (60-115)
== END 2024-11-22 08:32 | disposition home or self-care (01) ==
LOC: HO.ENCR 08:00
PROVIDERS: PCP Nurse Practitioner Family; Visit Provider Student in an Organized Health Care Education/Training Program
DX: E11.8 Type 2 diabetes mellitus with unspecified complications (principal); Z79.4 Long term (current) use of insulin; K76.0 Fatty (change of) liver, not elsewhere classified; Z13.9 Encounter for screening, unspecified
CPT/HCPCS: 99214; G2211

== ENCOUNTER → 2024-11-22 07:59 | Outpatient (BNVA) | payer OTHER, SELFPAY | PROVIDERS: PCP Nurse Practitioner Family; Visit Provider Student in an Organized Health Care Education/Training Program | DX: E11.8 Type 2 diabetes mellitus with unspecified complications (principal); Z79.4 Long term (current) use of insulin; K76.0 Fatty (change of) liver, not elsewhere classified | CPT/HCPCS: 82947; 83036 ==

== ENCOUNTER 2024-12-13 07:40 | Outpatient (REF) | payer OTHER, SELFPAY ==
--- OUTSIDE RECORDS SUMMARY | 2024-12-11 20:00 | XMS_ITS ---
Author Name Ally Dodge Address [address] [place] [address] Phone [phone] Organization [facility] e, NA DOCUMENT DISCLAIMER Multiple document versions may exist, please be sure you review the latest version. The information in the [facility] Progress Note Document represents a providers documented clinical note containing certain health and medical information. It may not contain the complete medical history for the patient and should be independently verified. The represented time in the document is Eastern Time PROVIDER ROUNDING NOTE BASIC Patient:?LEO?NIXON,?1970,?54y,?F Dialysis?[facility] Attending?[place] Former Machine Operator:?Bobby Service?Date:?12/12/2024 Service?Provider:?Ally?Echo,?STORAGE SPECIALIST I?met?face?to?face?with?the?patient?today. OVERVIEW The?patient?presented?with?ESRD?on?dialysis Primary?cause?of?renal?failure:?Hypertensive?chronic?kidney? disease?with?stage?1?through?stage?4?chronic?kidney?dis ease,?or?unspecified?chronic?kidney?disease DIALYSIS?PRESCRIPTION ??IHD?3x?Week?Start?date:?12/07/24 ??Dialyzer:?FX?CorAL?60 ??BFR:?350 ??DFR:?Manual?800 ??Potassium:?2.0 ??Sodium:?137 ??EDW:?72.5 ??Duration:?3:30 ??Calcium:?2.50 ??Bicarb:?35 ??Rx?updated?on:?12/07/2024 TREATMENT?ASSESSMENT BP?Stand?Pre ??12/09/2024:?140/60 ??12/07/2024:?129/63 ??12/05/2024:?109/50 BP?Sit?Pre ??12/09/2024:?152/62 ??12/07/2024:?148/61 ??12/05/2024:?113/59 BP?Stand?Post ??12/09/2024:?130/62 ??12/07/2024:?159/64 ??12/05/2024:?116/53 BP?Sit?Post ??12/09/2024:?154/87 ??12/07/2024:?178/79 ??12/05/2024:?136/59 Tx?Duration ??12/09/2024:?3:31 ??12/07/2024:?3:37 ??12/05/2024:?3:32 Missed?Treatments 0?-?last?30?days 0?-?last?60?days FLUID?ASSESSMENT EDW?(kg) ??12/09/2024:?72.5 ??12/07/2024:?72.5 ??12/05/2024:?72.5 Weight?Pre?(kg) ??12/09/2024:?73.9 ??12/07/2024:?73.9 ??12/05/2024:?74.8 Weight?Post?(kg) ??12/09/2024:?72.5 ??12/07/2024:?72.7 ??12/05/2024:?72.3 PWV?(kg) ??12/09/2024:?0.0 ??12/07/2024:?0.2 ??12/05/2024:?-0.2 UF?Rate?(mL/kg/hr) ??12/09/2024:?5.5 ??12/07/2024:?4.6 ??12/05/2024:?9.8 ADEQUACY?ASSESSMENT spKt/V,?URR ??11/30/2024:?1.48,?72.0 ??11/02/2024:?1.52,?74.0 ??09/28/2024:?1.63,?75.0 ACCESS?ASSESSMENT ??Access?Type:?AVFistula ??Access?SubType:?Standard ??Access?Status:?Active?(In?Use)?-?07/13/2024 ??Access?Location:?Right?Upper?Arm ??Created:?--/--/---- Flow ??11/28/2024:?1456 ??10/28/2024:?936 ??10/21/2024:?1336 ANEMIA?ASSESSMENT HGB ??12/07/2024:?10.5 ??11/30/2024:?10.6 ??11/23/2024:?10.6 ?? Ferritin ??11/18/2024:?1197.0 ??10/12/2024:?1276.0 ??09/14/2024:?951.0 Iron?Sucrose?(Venofer)?(mg) ??12/07/2024:?50 ??11/30/2024:?50 ??09/28/2024:?50 BMM?ASSESSMENT PTH,?Intact ??11/16/2024:?240.0 ??10/12/2024:?271.0 ??09/14/2024:?421.0 ?? Calcium,?Phosphorus ??11/18/2024:?9.4,?5.8 ??10/19/2024:?-,?6.0 ??10/12/2024:?8.9,?6.8 Vitamin?D?(Calcitriol)?Oral?(mcg) ??12/09/2024:?0.5 ??12/07/2024:?0.5 ??12/05/2024:?0.5 NUTRITION?ASSESSMENT Potassium,?Albumin ??11/21/2024:?5.9,?- ??11/18/2024:?6.5,?4.1 ??11/16/2024:?-,?3.9 ?? eNPCR ??11/30/2024:?0.8 ??11/02/2024:?0.68 ??09/28/2024:?0.69 DIAGNOSIS Chief?Complaint:?N18.6?End?stage?renal?disease Comments:?Patient?seen?and?examined.?VSS?with?no?complaints& #160;to?offer.?S1,?S2,?RRR.?LS?CTA?bilaterally.?Access?patent.? Patient?is?stable. Patient?data?updated?12/12/2024?at?9:04?AM Signed?By:?Echo,?Ally,?STORAGE SPECIALIST??on?12/12/2024?9:04:29?AM END OF DOCUMENT
--- NOTE | ~2024-12-13 | CT_ITS ---
EXAMINATION: CT CHEST WITHOUT IV CONTRAST INDICATION: R91.8 - Other nonspecific abnormal finding of lung field COMPARISON: There are no prior studies available for comparison. TECHNIQUE: Helical CT scan of the chest was performed without intravenous contrast. Coronal and sagittal reformatted images were generated and reviewed. This CT exam was performed with one or more of the following dose reduction techniques: automated exposure control, adjustment of the mA and/or kV according to patient size, use of iterative reconstruction technique. DLP: 204 mGy-cm CHEST: THYROID: The thyroid is unremarkable. LUNGS: There is a 6 x 3 mm subpleural nodular density at the right lung apex (series 4, image 24). There is a 3 mm nodule along the right major fissure (series 4, image 57) which likely represents an intrapulmonary lymph node. There is mild scarring at the left lung base. MEDIASTINUM: There is no mediastinal lymphadenopathy. MICHAELLE: Evaluation of the hilar regions is limited by lack of intravenous contrast material. CARDIOVASCULATURE: The heart is mildly enlarged. There is no pericardial effusion. The thoracic aorta is normal in caliber. DEGREE OF CORONARY CALCIFICATION: mild PLEURA: There is no pleural effusion. No pneumothorax. MAIN AIRWAYS: The mainstem bronchi and proximal branches are patent. AXILLA: There is no axillary lymphadenopathy. BONES AND SOFT TISSUES: Unremarkable UPPER ABDOMEN: The visualized portions of the liver, spleen, and adrenals have an unremarkable unenhanced appearance. CT/CT chest wo IV con IMPRESSION: Pulmonary nodules as described. Please see Fleischner Society guidelines below. Fleischner Criteria for pulmonary nodule follow-up SOLID NODULES: Low risk patient: <6mm: no follow-up 6-8mm: 6 month follow-up CT >8mm: PET/Biopsy/ 3 month follow-up CT High risk patient: <6mm: 12 month follow-up CT 6-8mm: 6 month follow-up CT >8mm: PET/Biopsy/ 3 month follow-up CT SUB-SOLID/GROUNDGLASS NODULES: All patients: > or = 6mm: 6 month follow-up CT *Please note that in patients in the following categories, the Fleischner criteria do not apply: Immunocompromised, lung cancer screening population, age below 35, and patients with known malignancy Electronically signed by: Geo Walters MD 12/13/2024 08:17 AM EDT
--- OUTSIDE RECORDS SUMMARY | 2024-12-13 07:42 | XMS_ITS | Encounter Summary ---
Author Organization [facility], Address [address] [place] [address] Phone Care Team Providers Care Photograph Retoucher Name Role Phone Simone Guerra MD Primary Care Provider [phone] Encounter Details Date Type Department Care Team (Late st Contact Info) Description 12/12/2024 Treatment [facility], [address] [place] [phone] Ally Dodge, [place] [address] [place] [phone] End stage renal disease; Dependence on renal [...] Dialysis Note - Ally Dodge APRN - 12/12/2024 12:00 AM EDT Patient: AMANDA JIM, 1970, 54y, F Dialysis Location: [facility] Attending Shoulder Joiner: Shahab Weinberg Service Date: 12/12/2024 Service Provider: Ally Dodge NP I met face to face with the patient today. OVERVIEW The patient presented with ESRD on dialysis Primary cause of renal failure: Hypertensive chronic kidney disease with stage 1 through stage 4 chronic kidney disease, or unspecified chronic kidney disease DIALYSIS PRESCRIPTION IHD 3x Week Start date: 12/07/24 Dialyzer: FX CorAL 60 BFR: 350 DFR: Manual 800 Potassium: 2.0 Sodium: 137 EDW: 72.5 Duration: 3:30 Calcium: 2.50 Bicarb: 35 Rx updated on: 12/07/2024 TREATMENT ASSESSMENT BP Stand Pre 12/09/2024: 140/60 12/07/2024: 129/63 12/05/2024: 109/50 BP Sit Pre 12/09/2024: 152/62 12/07/2024: 148/61 12/05/2024: 113/59 BP Stand Post 12/09/2024: 130/62 12/07/2024: 159/64 12/05/2024: 116/53 BP Sit Post 12/09/2024: 154/87 12/07/2024: 178/79 12/05/2024: 136/59 Tx Duration 12/09/2024: 3:31 12/07/2024: 3:37 12/05/2024: 3:32 Missed Treatments 0 - last 30 days 0 - last 60 days FLUID ASSESSMENT EDW (kg) 12/09/2024: 72.5 12/07/2024: 72.5 12/05/2024: 72.5 Weight Pre (kg) 12/09/2024: 73.9 12/07/2024: 73.9 12/05/2024: 74.8 Weight Post (kg) 12/09/2024: 72.5 12/07/2024: 72.7 12/05/2024: 72.3 PWV (kg) 12/09/2024: 0.0 12/07/2024: 0.2 12/05/2024: -0.2 UF Rate (mL/kg/hr) 12/09/2024: 5.5 12/07/2024: 4.6 12/05/2024: 9.8 ADEQUACY ASSESSMENT spKt/V, URR 11/30/2024: 1.48, 72.0 11/02/2024: 1.52, 74.0 09/28/2024: 1.63, 75.0 ACCESS ASSESSMENT Access Type: AVFistula Access SubType: Standard Access Status: Active (In Use) - 07/13/2024 Access Location: Right Upper Arm Created: --/--/---- Flow 11/28/2024: 1456 10/28/2024: 936 10/21/2024: 1336 ANEMIA ASSESSMENT HGB 12/07/2024: 10.5 11/30/2024: 10.6 11/23/2024: 10.6 Ferritin 11/18/2024: 1197.0 10/12/2024: 1276.0 09/14/2024: 951.0 Iron Sucrose (Venofer) (mg) 12/07/2024: 50 11/30/2024: 50 09/28/2024: 50 BMM ASSESSMENT PTH, Intact 11/16/2024: 240.0 10/12/2024: 271.0 09/14/2024: 421.0 Calcium, Phosphorus 11/18/2024: 9.4, 5.8 10/19/2024: -, 6.0 10/12/2024: 8.9, 6.8 Vitamin D (Calcitriol) Oral (mcg) 12/09/2024: 0.5 12/07/2024: 0.5 12/05/2024: 0.5 NUTRITION ASSESSMENT Potassium, Albumin 11/21/2024: 5.9, - 11/18/2024: 6.5, 4.1 11/16/2024: -, 3.9 eNPCR 11/30/2024: 0.8 11/02/2024: 0.68 09/28/2024: 0.69 DIAGNOSIS Chief Complaint: N18.6 End stage renal disease Comments: Patient seen and examined. VSS with no complaints to offer. S1, S2, RRR. LS CTA bilaterally. Access patent. Patient is stable. Patient data updated 12/12/2024 at 9:04 AM Signed By: Ally Dogde NP on 12/12/2024 9:04:29 AM documented in this encounter Plan of Treatment Upcoming Encounters Date Type Department Care Team (Late st Contact Info) Description 12/27/2024 9:30 AM EDT Office Visit [facility] [address] [place] [address] [place] [address] documented as of this encounter Visit Diagnoses Diagnosis End stage renal disease Dependence on renal dialysis documented in this encounter Care Teams Photograph Retoucher Relationship Specialty Start Date End Date Simone Guerra MD [address] [address] PCP - General Family Medicine 08/09/24 documented as of this encounter
--- OUTSIDE RECORDS SUMMARY | 2024-12-13 07:42 | XMS_ITS ---
Author Name [facility], [facility] Address [address] [place] [address] Phone [phone] Organization [facility] e, NA DOCUMENT DISCLAIMER Multiple document versions may exist, please be sure you review the latest version. 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 Active [...] renal dialysis Z99.2 Active July 13, 2024 ad terminal makeup operator (current) use of anticoagulants Z79.01 Active July 13, 2024 ALLERGIES AND ADVERSE REACTIONS No Known Allergies SOCIAL HISTORY Tobacco Use Status Tobacco Type Never smoker - Caregiver Characteristics No Information Available Characteristics of Home environment No Information Available Gender and Sex Information Gender Identity Sexual Orientation Female Heterosexual MEDICATIONS Prescribed Medications for Dialysis Treatments Medication Instructions Dosage Route Start Date End Date Stat Heparin Sodium (Porcine) 1,000 Units/mL Systemic Bolus, Every Treatment, Total treatment minutes 210 2500 units Intravenous - push November 25, 2024 November 24, 2025 Active Iron Sucrose (Venofer) 1X Week 50 mg Intravenous - push November 30, 2024 November 29, 2025 Active Midodrine HCl (Proamatine) PRN-july repeat x1 10 mg Oral October 24, 2024 October 23, 2025 Active Vitamin D (Calcitriol) Oral Every Treatment 0.5 mcg Oral September 19, 2024 September 18, 2025 Active Home Medications Medication Instructions Dosage Route Start Date End Date Stat Adult Low Dose Aspirin 81 mg Take [...] 1 tablet ORAL November 07, 2024 Active VITAL SIGNS Post-Treatment Vital Signs Vital Sign Value Date / Time Blood Pressure-sitting 174/74 mmHg December 12, 2024 07:18 AM Blood Pressure-standing 165/63 [facility] 07:18 AM Heart Rate 86 beats per minute November 07:18 AM Respiratory Rate 18 breaths per minute December 12, 2024 07:18 AM Temperature 97.8 deg. F December 12 07:18 AM Weight Vital Sign Value Date / Time Estimated Dry Weight 72.5 kg November 282024 11:59 PM Pre-Dialysis 74.10 kg December 12 07:18 AM Post-Dialysis 72.90 kg December 12 07:18 AM Other Other Value Date / Time Height 160 cm August 12, 2024 12: 00 AM Body Mass Index 28.32 kg/m2 November 25, 2024 10:23 AM LAB RESULTS Hematology Result Type Result Value [...] 10 - 291 ng/mL High August 17 TIBC (Calc) 202 mcg/dL 185 - 515 [...] 48.0 % Low September Hemoglobin x 3 32.7 % 36.0 - 48.0 % Low September Hemoglobin x 3 34.8 % 36.0 - 48.0 % Low November 02, 2024 Hemoglobin x 3 34.8 % 36.0 [...] 155 - 355 mcg/dL - October 292024 HGB 10.6 g/dL 12.0 - 16.0 g/dL Low October 292024 Hemoglobin x 3 31.8 % 36.0 - 48.0 % Low November 23, 2024 HGB 10.6 g/dL 12.0 - 16.0 g/dL Low r 2024 Hemoglobin x 3 31.8 % 36.0 - 48.0 % Low 2024 HGB 10.5 g/dL 12.0 - 16.0 g/dL Low Novembe r 2024 Hemoglobin x 3 31.5 % 36.0 - 48.0 % Low Septemb er 2024 Metabolic/Renal Result Type Result Value Relevant Referen ce Range Interpretation Date Bicarbonate 24 mEq/L 22 - 29 mEq/L [...] 96 - 108 mEq/L - September 14 BUN 36 mg/dL 6 - 19 mg/dL High September 28 URR, Calc 75 % 65 - 80 % - September 28, 2024 BUN, Post 9 mg/dL 6 - 19 mg/dL - September 28 BUN 40 mg/dL 6 - 19 mg/dL High October 12 Bicarbonate 23 mEq/L 22 - 29 mEq/L - October 12 Chloride 99 mEq/L 96 - 108 mEq/L - October 12 Sodium 136 mEq/L 136 - 145 mEq/L [...] mEq/L 3.5 - 5.1 mEq/L High October Potassium 5.9 mEq/L 3.5 - 5.1 mEq/L High October URR, Calc 72 % 65 - 80 % - November 30, 2024 BUN, Post 13 mg/dL 6 - 19 mg/dL - November BUN 47 mg/dL 6 - 19 mg/dL High November HD Adequacy Result Type Result Value Relevant Referen ce Range Interpretation Date Krt/V 0.00 No Reference Ran ge Provided - July 22, 2024 Krt/V 0.00 No Reference Ran ge Provided - August 03, 2024 Krt/V 0.00 No Reference Ran ge Provided - August 31, 2024 wstdKt/V 2.5 [...] Ran ge Provided - November 02, 2024 wstdKt/V, residual 0.0 No Reference Range Provided - November 30, 2024 eKt/V (Tattersall) 1.29 No Reference Range Provided - November 30, 2024 spKt/V (Daugirdas II) 1.48 No Reference Range Provided - November 30, 2024 Krt/V 0.00 No Reference Ran ge Provided - November 30, 2024 spKt/V Gotch 1.52 No Reference Ran ge Provided - November 30, 2024 wstdKt/V without residual 2.4 No Reference Range Provided - November 30, 2024 wstdKt/V 2.4 No Reference Ran ge Provided - November 30, 2024 Bone/Mineral Result Type Result Value Relevant [...] 61 0 - 54 High October 12 025 PTH-Intact, Plasma 271 pg/mL 16 - 80 [...] 118 - 273 U/L - July 18 Glucose 234 mg/dL 70 - 100 mg/dL High September 14 Albumin (BCG) 3.5 g/dL 3.5 - 5.2 g/dL - August eNPCR 0.69 No Reference Ran ge Provided - September 28, 2024 Albumin (BCG) 3.6 g/dL 3.5 - 5.2 g/dL - September SGPT (ALT) 19 U/L 7 - 52 U/L - October 12, 2024 LDH 120 U/L 118 - 273 U/L - October 12 SGOT (AST) 14 U/L 13 - 39 U/L - October 12, 2024 Glucose 194 mg/dL 70 - 100 mg/dL High October 12 eNPCR 0.68 No Reference Ran ge Provided - November 02, 2024 Albumin (BCG) 3.9 g/dL 3.5 - 5.2 g/dL - November 16, 2024 SGPT (ALT) 18 U/L 7 - 52 U/L - November 18 Albumin (BCG) 4.1 g/dL 3.5 - 5.2 g/dL - November 18, 2024 eNPCR 0.80 No Reference Ran ge Provided - November 30, 2024 Lipid Result Type Result Value Relevant Referen ce Range Interpretation Date Cholesterol HDL Ratio 4.6 0.0 - 4.5 High Apr 2024 LDL, (Calculated) 56 mg/dL 0 - 99 mg/dL - July 18, 2024 Triglycerides 225 mg/dL 0 - 149 mg/dL High June VLDL (Calculated) 45 mg/dL 10 - 30 mg/dL High Apr2024 HDL 28 mg/dL No Reference Ran ge [...] Conventional Hemodialysis Data Element Value Order Date/Time December 07, 2024 Frequency 3X Week Treatment Days MonWedFri Dialyzer FX CorAL 60 Treatment Time (Total Minutes) 210 min Blood Flow Rate (mL/min) 350 mL/min Dialysate Flow Rate Manual 800 Estimated Dry Weight 72.5 kg Dialysate Concentrate 2.0 K, 2.50 Ca, 1. 0 Mg, 100 Dextrose ([id number]) Sodium (mEq/L) 137 mEq/L Bicarb Machine Setting [...] (mL/min) Dialysate Dialyzer Dialysis Access Meds Admin [facility]2024 Weight 73.90 kg Weight 72.70 kg 03:37:00 350 2.0 K, 2.50 Ca, 1.0 Mg, 100 Dextrose ([id number]) FX CorAL 60 Blood Pressure-sitting 148/61 mmHg Blood Pressure-sit ting 178/79 mmHg Blood Pressure-standing 129/63 mmHg Blood Pressure-st anding 159/64 mmHg Heart Rate 106 beats per minute Heart Rate 88 beats per minute Respiratory Rate 16 breaths per minute Respiratory Rate 18 breaths per minute Temperature 97.5 deg. F Temperature 97.5 deg. F December 09, 2024 Weight 73.90 kg Weight 72.50 kg 03:31:00 350 2.0 K, 2.50 Ca, 1.0 Mg, 100 Dextrose ([id number]) FX CorAL 60 Hemodialysis-AV Fistula-Standard, Right Upper Arm, Other/Unknown Heparin Sodium (Porcine) 1,000 Units/mL Systemic; 2500units,Intravenous - push Vitamin D (Calcitriol) Oral; 0.5mcg,Oral Blood Pressure-sitting 152/62 mmHg Blood Pressure-sit ting 154/87 mmHg Blood Pressure-standing 140/60 mmHg Blood Pressure-st anding 130/62 mmHg Heart Rate 110 beats per minute Heart Rate 88 beats per minute Respiratory Rate 16 breaths per minute Respiratory Rate 18 breaths per minute Temperature 97.9 deg. F Temperature 97.9 deg. F December 12, 2024 Weight 74.10 kg Weight 72.90 kg 03:31:00 350 2.0 K, 2.50 Ca, 1.0 Mg, 100 Dextrose ([id number]) FX CorAL 60 Hemodialysis-AV Fistula-Standard, Right Upper Arm, Other/Unknown Heparin Sodium (Porcine) 1,000 Units/mL Systemic; 2500units,Intravenous - push Vitamin D (Calcitriol) Oral; 0.5mcg,Oral Blood Pressure-sitting 139/95 mmHg Blood Pressure-sit ting 174/74 mmHg Blood Pressure-standing 118/54 mmHg Blood Pressure-st anding 165/63 mmHg Heart Rate 93 beats per minute Heart Rate 86 beats per minute Respiratory Rate 18 breaths per minute Respiratory Rate 18 breaths per minute Temperature 97.8 deg. F Temperature 97.8 deg. F
--- OUTSIDE RECORDS SUMMARY | 2024-12-13 07:42 | XMS_ITS | Encounter Summary ---
Author Organization [facility], Address [address] [place] [address] Phone Care Team Providers Care Management Services Technician Name Role Phone Simone Guerra MD Primary Care Provider [phone] Encounter Details Date Type Department Care Team (Late st Contact Info) Description 12/07/2024 Orders Only [facility] [address] [place] [address] Shahab Weinberg MD [address] [place] [address] [place] [phone] Social History Tobacco Use Types Packs/Day Years [...] Visit [facility], - Vascular Access Center [address] [place] [address] [place] [phone] documented as of this encounter Procedures Procedure Name Priority Date/Time Associated Diagnosis Comments HEMATOLOGY Routine 12/07/2024 documented in this encounter Results * (ABNORMAL) HEMATOLOGY (12/07/2024) Hemoglobin 10.5(L) 12.0 - 16.0 g/dL [facility] Hemoglobin x 3 31.5(L) 36.0 - 48.0 % [facility] 12/07/2024 12/08/2024 9:1 2 AM EDT Narrative SAME - 12/08/2024 Unless otherwise specified, test(s) performed at: [facility], [address] [place] [id number] MACHINIST OUTSIDE: Andry Spangler M.D. For any questions, please call customer service at FREQUENCY:OTHER Resulting Agency Comment Specimen source: Blood Shahab Weinberg MD LAB BLOOD ORDERABLES Final Re sult [facility] See order comments or contact performing lab Unknown, [place] documented in this encounter Visit Diagnoses Not on filedocumented in this encounter Care Teams Management Services Technician Relationship Specialty Start Date End Date Simone Guerra MD [address] [address] PCP - General Family Medicine 08/09/24 documented as of this encounter
--- OUTSIDE RECORDS SUMMARY | 2024-12-13 07:42 | XMS_ITS | Clinical Summary ---
Author Organization [facility], Address [address] [place] [address] Phone Care Team Providers Care Sand Cutter Name Role Phone Simone Guerra MD Primary Care Provider Allergies No known active allergies Active Problems Problem Noted Date Diagnosed Date End stage renal disease 07/18/2024 Encounters Date Type Department Care Team Description 12/12/2024 Treatment [facility], [address] [place] [phone] Ally Dodge APRN End stage renal disease; Dependence on renal dialysis 12/07/2024 Orders Only [facility] [address] [address] Shahab Weinberg MD 12/05/2024 Treatment [facility], [address] [place] [phone] Ally Dodge APRN End stage renal disease; Dependence on renal dialysis 12/02/2024 Treatment [facility], [address] [place] [phone] Nayan Gunderson MD End stage renal disease; Dependence on renal dialysis; 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 Orders Only [facility] [address] [address] Shahab Weinbreg MD 11/30/2024 Treatment [facility], [address] [place] [address] Ally Dodge APRN End stage renal disease; Dependence on renal dialysis 11/23/2024 Orders Only [facility] [address] [address] Shahab Weinberg MD 11/21/2024 Orders Only [facility] [address] [address] Shahab Weinberg MD 11/18/2024 Orders Only [facility] [address] [address] Shahab Weinberg MD 11/16/2024 Orders Only [facility] [address] [address] Shahab Weinberg MD 11/14/2024 Treatment [facility] [address] [place] [address] Ally Dodge APRN End stage renal disease; Dependence on renal dialysis 11/11/2024 Treatment [facility] [address] [place] [address] Nayan Gunderson MD End stage renal disease; Dependence on renal dialysis; Type 2 diabetes mellitus with diabetic chronic kidney disease 11/09/2024 Orders Only [facility] [address] [address] Shahab Weinberg MD 11/07/2024 Treatment [facility] [address] [place] [address] Ally Dodge APRN End stage renal disease; Dependence on renal dialysis 11/02/2024 Orders Only [facility] [address] [address] Shahab Weinberg MD 10/31/2024 Treatment [facility] [address] [place] [address] Ally Dodge APRN End stage renal disease; Dependence on renal dialysis 10/27/2024 8:45 AM EDT Office Visit [facility] - [facility] [address] [place] [phone] Jamie Momin MD 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 Orders Only [facility] [address] [address] Shahab Weinberg MD 10/21/2024 Treatment [facility] [address] [place] [address] Ally Dodge APRN End stage renal disease; Dependence on renal dialysis 10/19/2024 Orders Only [facility] [address] [address] Shahab Weinberg MD 10/17/2024 Treatment [facility], [address] [place] [address] Ally Dodge APRN End stage renal disease; Dependence on renal dialysis 10/12/2024 Orders Only [facility] [address] [address] Shahab Weinberg MD 10/10/2024 Treatment [facility], [address] [place] [address] Ally Dodge APRN End stage renal disease; Dependence on renal dialysis 10/07/2024 Treatment [facility], [address] [place] [address] Nayan Gunderson MD End stage renal disease; Dependence on renal dialysis; Type 2 diabetes mellitus with diabetic chronic kidney disease 10/05/2024 Orders Only [facility] [address] [address] Shahab Weinberg MD 09/28/2024 Orders Only [facility] [address] [address] Shahab Weinberg MD 09/23/2024 Treatment [facility], [address] [place] [address] Nayan Gunderson MD End stage renal disease; Dependence on renal dialysis; Type 2 diabetes mellitus with diabetic chronic kidney disease 09/21/2024 Orders Only [facility] [address] [address] Shahab Weinberg MD 09/14/2024 Orders Only [facility] [address] [address] Shahab Weinberg MD 09/12/2024 Treatment [facility], [address] [place] [address] Ally Dodge APRN End stage renal disease; [...] Office Visit [facility] - V[facility] Access Center [address] [place] [address] Health Maintenance Due Date Last Done Comments [...] Date/Time Associated Diagnosis Comments HEMATOLOGY Routine 12/07/2024 [facility] RESULTS Routine 11/30/2024 HD KINETICS Routine 11/30/2024 POST CHEMISTRY Routine 11/30/2024 CHEMISTRY Routine 11/30/2024 HEMATOLOGY Routine 11/30/2024 HEMATOLOGY Routine 11/23/2024 CHEMISTRY Routine 11/21/2024 CHEMISTRY Routine 11/18/2024 THYROIDS Routine 11/16/2024 IMMUNO [...] 09/14/2024 HEMATOLOGY Routine 09/14/2024 CHEMISTRY Routine 09/14/2024 from Last 3 Months Results * (ABNORMAL) HEMATOLOGY (12/07/2024) Only the most recent of13 resultswithin the time period is included. Hemoglobin 10.5(L) 12.0 - 16.0 g/dL [facility] Hemoglobin x 3 31.5(L) 36.0 - 48.0 % [facility] 12/07/2024 12/08/2024 9:1 2 AM EDT Narrative [facility] - 12/08/2024 Unless otherwise specified, test(s) performed at: [facility], [address] [place] [id number] BILL ADJUSTER: Andry Spangler M.D. For any questions, please call customer service at FREQUENCY:OTHER Resulting Agency Comment Specimen source: Blood Shahab Weinberg MD LAB BLOOD ORDERABLES Final Re sult Performing Organization Address [facility] de Phone Number [facility] See order comments or contact performing lab Unknown, [place] * HD KINETICS (11/30/2024) Only the most recent of3 resultswithin the time period is included. % Urea Reduction 72 65 - 80 % [facility] 11/30/2024 12/02/2024 11: 57 AM EDT Narrative Resulting Agency Comment Specimen source: Plasma Shahab Weinberg MD LAB BLOOD ORDERABLES Final Re sult Performing Organization Address [facility] de Phone Number [facility] See order comments or contact performing lab Unknown, [place] * POST CHEMISTRY (11/30/2024) Only the most recent of3 resultswithin the time period is included. BUN Post Dialysis 13 6 - 19 mg/dL [facility] 11/30/2024 12/02/2024 11: 57 AM EDT Narrative [facility] - 12/02/2024 Unless otherwise specified, test(s) performed at: [facility], [address] [place] [address] BILL ADJUSTER: Andry Spangler M.D. For any questions, please call customer service at FREQUENCY:OTHER Resulting Agency Comment Specimen source: Plasma Shahab Weinberg MD LAB BLOOD ORDERABLES Final Re sult Performing Organization Address [facility] de Phone Number [facility] See order comments or contact performing lab Unknown, [place] * (ABNORMAL) [facility] (11/30/2024) Only the most recent of12 resultswithin the time period is included. BUN 47(H) 6 - 19 mg/dL [facility] 11/30/2024 12/01/2024 10: 03 AM EDT Narrative [facility] - 12/02/2024 Unless otherwise specified, test(s) performed at: [facility], [address] [place] [id number] BILL ADJUSTER: Andry Spangler M.D. For any questions, please call customer service at FREQUENCY:OTHER Resulting Agency Comment Specimen source: Serum Shahab Weinberg MD LAB BLOOD ORDERABLES Final Re sult [facility] See order comments or contact performing lab Unknown, [place] * [facility] Lab Results (11/30/2024) Only the most recent of3 resultswithin the time period is included. eKt/V ([place]all) 1.29 [facility] eKt/V Gotch 1.31 [facility] spKt/V (Daugirdas II) 1.48 [facility] WSTDKT/V 2.4 [facility] PCR 44.05 [facility] nPCR_HD 0.85 [facility] spKt/V Gotch 1.52 [facility] eNPCR 0.80 [facility] eKdrt/V 1.31 [facility] 11/30/2024 11/30/2024 [facility] Ordering Provider LAB BLOOD ORDERABLES Final Result [facility] Contact Performing lab Unknown, [place] * (ABNORMAL) THYROIDS (11/16/2024) Only the most recent of3 resultswithin the time period is included. TSH 3.056(H) 0.300 - 3.000 mIU/L [facility] Comment: The reference range of 0.300-3.000 mIU/L is recommended by the [place] [employer]ocrin[employer] (AACE). An ESRD population contains about 20% of individuals with TSH of up to 20 mIU/L and normal free T4 consistent with non-thyroidal illness. ESRD patients with true hypothyroidism develop persistent values above 20 mIU/L. 11/16/2024 11/17/2024 12: 11 PM EDT Narrative [facility] - 11/17/2024 Unless otherwise specified, test(s) performed at: [facility], [address] [place] [id number] BILL ADJUSTER: Andry Spangler M.D. For any questions, please call customer service at FREQUENCY:MONTHLY Resulting Agency Comment Specimen source: Serum Shahab Weinberg MD LAB BLOOD ORDERABLES Final Re sult [facility] See order comments or contact performing lab Unknown, [place] * IMMUNO CHEMISTRY (11/16/2024) Only the most recent of3 resultswithin the time period is included. Hep B Surface Ag Negative Negative [facility] 11/16/2024 11/17/2024 12: 11 PM EDT Narrative Resulting Agency Comment Specimen source: Serum Shahab Weinberg MD LAB BLOOD ORDERABLES Final Re sult Performing Organization Address [facility] Co de Phone Number [facility] See order comments or contact performing lab Unknown, [place] from Last 3 Months Insurance [facility] Medicaid Care Teams Sand Cutter Relationship Specialty Start Date End Date Simone Guerra MD [address] [place] [phone] PCP - General Family Medicine 08/09/24
== END 2024-12-13 07:41 | disposition home or self-care (01) ==
LOC: HO.CT 07:40
PROVIDERS: PCP Nurse Practitioner Family; Visit Provider Nurse Practitioner Family
DX: R91.8 Other nonspecific abnormal finding of lung field (principal); R40.0 Somnolence
CPT/HCPCS: 71250

== ENCOUNTER → 2024-12-13 07:42 | Outpatient (BNV) | payer OTHER, SELFPAY | PROVIDERS: PCP Nurse Practitioner Family; Visit Provider Radiology Diagnostic Radiology | DX: R91.8 Other nonspecific abnormal finding of lung field (principal) | CPT/HCPCS: 71250 ==

== ENCOUNTER 2024-12-27 10:50 | Outpatient (AMB) | payer OTHER, SELFPAY ==
--- NOTE | 2024-12-27 11:25 | MHC.AMDMED ---
Intake Intake Visit Reasons: T2DM Trauma Program Manager Required: Yes Trauma Program Manager Language: Mallory Trauma Program Manager Services: Trauma Program Manager Offered & Declined Accompanied by: Daughter Allergies No Known Allergies Allergy (Verified 11/22/24 08:10) HPI Comprehensive Diabetes Asmnt Most Recent Diabetes Results: Cholesterol, (<200) 157 mg/dL 10/20/24 HDL Cholesterol, (>40) 30 mg/dL L 10/20/24 Triglycerides, (<150) 255 mg/dL H 10/20/24 Creatinine, (0.5-1.4) 4.18 mg/dL H* 10/20/24 AST, (5-31) 28 U/L 10/20/24 ALT, (0-31) 22 U/L 10/20/24 [facility] Medical History (Updated 12/13/24 @ 08:44 by Katie Maxwell NP) Metabolic dysfunction-associated steatotic liver disease (MASLD) Long-term insulin use Kidney disease GERD (gastroesophageal reflux disease) Liver disease Edema Spine disorder Surgical History No pertinent past surgical history Family History Mother HTN (hypertension) Diabetes Father HTN (hypertension) Sister Diabetes Brother Diabetes Social History Household Members: Family Housing: House Are you a primary manager primary care to a significant other at home: No Do you presently have visiting nurse or other home services: No Alcohol intake: never Patient Tobacco Use Status: Never used Tobacco e-Cigarette/Vaping Use: Never Used Second Hand Smoke Exposure: No Current occupational status: unemployed and disabled Cognitive needs: No Hearing needs: No Vision needs: No Assessment & Plan Assessment & Plan (1) Diabetes mellitus type 2 with complications: Code(s): E11.8 - Type 2 diabetes mellitus with unspecified complications Plan: Learning objectives: The patient was provided with verbal and written education on the following topics as outlined below. The patient met all learning objectives and was able to verbalize understanding and provide teach back of education topics discussed . The patient was provided with the opportunity to ask questions and all questions were answered. Patient Assessment Assess patient education level/literacy/barriers, patient's daughter reports patient has had diabetes for over 20 years. Her last A1c on 11/22/2024 was 9% She has been unable to get insurance to cover CGM, uses glucometer at home did not bring to today's visit. Patient questions/concerns, patient is currently on dialysis 3 days a week. Sees RD at dialysis center Patient will be leaving for [place] in 1 week, when she returns at her next Diabetes Education visit we will set up sample CGM What is Diabetes? Pathophysiology How the body produces and uses insulin Identify type of DM Risk factors Signs of Diabetes Brief overview of Diabetes Management Monitoring blood sugar Following a meal plan Regular exercise Maintaining a healthy weight Taking medication as needed Members of the care team (PCP, RN, MA, RD, CDE, curriculum development specialist) Blood glucose monitoring When/how often to test Target blood sugar ranges No meter at today's visit Introduction to Nutrition Importance of healthy diet in managing DM Diet is personalized to individual preference Review patient?s regular diet/food preferences Who prepares meals/does food shopping/ Dining out?/ Barriers? How diet effects glucose Eating 3 balanced meals a day with small, healthy snacks between meals Review food groups Carbohydrates: What is a carbohydrate/Which food/food groups are considered carbohydrates Effect of carbohydrates on blood glucose Portion sizes Reading food labels Basic carb counting (if applicable per nursing assessment) Plate method Meal planning Recommendations: Follow plate method, consistent carbs and read nutritional labels. Smart Goal: Identify foods and current meal plan that contain carbohydrates Educational Materials: The patient was provided with the following written educational materials: Planning Healthy Meals Handout Patient Response to instructions: Comprehension of Instructions: Fair Readiness to make changes: Contemplation How confident they feel about making changes: Positive Portions of this note were created using voice recognition software, please excuse any words or phrases that may have been misinterpreted. Patient Instructions: Include regular daily activity. ADA recommends 30 minutes of exercise 5 days a week. Weight loss talk to PCP or Gut Dropper before starting new plan. Test blood sugar as directed; Fasting and 2hpp largest meal. Watch trends in results. Utilize results and to assess how food, physical activity and medications affect blood sugar results. Bring glucometer or CGM to next visit. Be knowledgeable about diabetes medication, its action, side effects, efficacy, toxicity, prescribed dosage, appropriate timing and frequency of administration, effect of missed and delayed doses and instructions for storage, travel and safety. Problem solving techniques to monitor hypo/hyperglycemia episodes and treatments. Reduce risk reduction behaviors, smoking cessation, regular eye, foot and dental examinations. Coding Level of Care Code Est Pt Level 1 (69379) Diagnoses Diabetes mellitus type 2 with complications E11.8
--- OUTSIDE RECORDS SUMMARY | 2024-12-27 12:13 | XMS_ITS | Encounter Summary ---
Author Organization [facility], Address [address] [place] [address] Phone Care Team Providers Care Butter Production Supervisor Name Role Phone Simone Guerra MD Primary Care Provider [phone] Encounter Details Date Type Department Care Team (Late st Contact Info) Description 12/21/2024 Orders Only [facility] [address] [place] [address] Shahab Weinberg MD [address] [place] [address] [place] [phone] Social History Tobacco Use Types Packs/Day Years [...] Priority Date/Time Associated Diagnosis Comments HEMATOLOGY Routine 12/21/2024 documented in this encounter Results * (ABNORMAL) HEMATOLOGY (12/21/2024) Hemoglobin 10.2(L) 12.0 - 16.0 g/dL [facility] Hemoglobin x 3 30.6(L) 36.0 - 48.0 % [facility] 12/21/2024 12/23/2024 8:2 5 AM EDT Narrative [facility] - 12/23/2024 Unless otherwise specified, test(s) performed at: [facility], [address] [place] [address] BINDERY LIBRARY TECHNICAL ASSISTANT: Andry Spangler M.D. For any questions, please call customer service at FREQUENCY:OTHER Resulting Agency Comment Specimen source: Blood us Shahab Weinberg MD LAB BLOOD ORDERABLES Final Re sult [facility] See order comments or contact performing lab Unknown, [place] documented in this encounter Visit Diagnoses Not on filedocumented in this encounter Care Teams Butter Production Supervisor Relationship Specialty Start Date End Date Simone Guerra MD [address] [address] PCP - General Family Medicine 08/09/24 documented as of this encounter
--- OUTSIDE RECORDS SUMMARY | 2024-12-27 12:13 | XMS_ITS | Clinical Summary ---
Author Organization [facility], Address [address] [place] [address] Phone Care Team Providers Care Product Line Manager Name Role Phone Simone Guerra MD Primary Care Provider Allergies No known active allergies Active Problems Problem Noted Date Diagnosed Date End stage renal disease 07/18/2024 Encounters Date Type Department Care Team Description 12/21/2024 Orders Only [facility] [address] [address] Shahab Weinberg MD 12/14/2024 Orders Only [facility] [address] [address] Shahab Weinberg MD 12/12/2024 Treatment [facility], [address] [place] [address] Ally Dodge APRN End stage renal disease; Dependence on renal dialysis 12/07/2024 Orders Only [facility] [address] [address] Shahab Weinberg MD 12/05/2024 Treatment [facility], [address] [place] [address] Ally Dodge APRN End stage renal disease; Dependence on renal dialysis 12/02/2024 Treatment [facility], [address] [place] [address] Nayan Gunderson MD End stage renal disease; Dependence on renal dialysis; 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 Orders Only [facility] [address] [address] Shahab Weinberg MD 11/30/2024 Treatment [facility], [address] [place] [address] Ally Dodge APRN End stage renal disease; Dependence on renal dialysis 11/23/2024 Orders Only [facility] [address] [address] Shahab Weinberg MD 11/21/2024 Orders Only [facility] [address] [address] Shahab Weinberg MD 11/18/2024 Orders Only [facility] [address] [address] Shahab Weinberg MD 11/16/2024 Orders Only [facility] [address] [address] Shahab Weinberg MD 11/14/2024 Treatment [facility] [address] [place] [address] Ally Dodge APRN End stage renal disease; Dependence on renal dialysis 11/11/2024 Treatment [facility] [address] [place] [address] Nayan Gunderson MD End stage renal disease; Dependence on renal dialysis; Type 2 diabetes mellitus with diabetic chronic kidney disease 11/09/2024 Orders Only [facility] [address] [address] Shahab Weinberg MD 11/07/2024 Treatment [facility] [address] [place] [address] Ally Dodge APRN End stage renal disease; Dependence on renal dialysis 11/02/2024 Orders Only [facility] [address] [address] Shahab Weinberg MD 10/31/2024 Treatment [facility], [address] [place], [place] [address] [address] Ally Dodge APRN End stage renal disease; Dependence on renal dialysis 10/27/2024 8:45 AM EDT Office Visit [facility], [facility] [address] [place] [address] Jamie Momin MD 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 Orders Only [facility] [address] [address] Shahab Weinberg MD 10/21/2024 Treatment [facility], [address] [place] [address] [place] [address] Ally Dodge APRN End stage renal disease; Dependence on renal dialysis 10/19/2024 Orders Only [facility] [address] [address] Shahab Weinberg MD 10/17/2024 Treatment [facility], [address] [place] [address] [place] [address] Ally Dodge APRN End stage renal disease; Dependence on renal dialysis 10/12/2024 Orders Only [facility] [address] [address] Shahab Weinberg MD 10/10/2024 Treatment [facility], [address] [facility] [place] [address] Ally Dodge APRN End stage renal disease; Dependence on renal dialysis 10/07/2024 Treatment [facility], [address] [place] [address] Nayan Gunderson MD End stage renal disease; Dependence on renal dialysis; Type 2 diabetes mellitus with diabetic chronic kidney disease 10/05/2024 Orders Only [facility] [address] [address] Shahab Weinberg MD 09/28/2024 Orders Only [facility] [address] [address] Shahab Weinberg MD from Last 3 Months Social History Tobacco Use Types Packs/Day Years Used Date Smoking Tobacco: Never Assessed Comments Unknown Sex and Gender Information Value Date Recorded Sex Assigned at Not on file Legal Sex Female 8:56 AM EDT Gender Identity Not on file Sexual Orientation Not on file Plan of Treatment Health Maintenance Due Date Last Done Comments [...] Date/Time Associated Diagnosis Comments HEMATOLOGY Routine 12/21/2024 THYROIDS Routine 12/14/2024 IMMUNO CHEMISTRY Routine 12/14/2024 CHEMISTRY Routine 12/14/2024 HEMATOLOGY Routine 12/14/2024 CHEMISTRY Routine 12/14/2024 HEMATOLOGY Routine 12/07/2024 [facility] RESULTS Routine 11/30/2024 HD KINETICS Routine 11/30/2024 POST CHEMISTRY Routine 11/30/2024 CHEMISTRY Routine 11/30/2024 HEMATOLOGY Routine 11/30/2024 HEMATOLOGY Routine 11/23/2024 CHEMISTRY Routine 11/21/2024 CHEMISTRY Routine 11/18/2024 THYROIDS Routine 11/16/2024 IMMUNO CHEMISTRY Routine 11/16/2024 CHEMISTRY Routine 11/16/2024 CHEMISTRY Routine 11/16/2024 HEMATOLOGY Routine 11/16/2024 HEMATOLOGY Routine 11/09/2024 [facility] RESULTS Routine 11/02/2024 HD KINETICS Routine [...] POST CHEMISTRY Routine 09/28/2024 HEMATOLOGY Routine 09/28/2024 from Last 3 Months Results * (ABNORMAL) HEMATOLOGY (12/21/2024) Only the most recent of13 resultswithin the time period is included. Hemoglobin 10.2(L) 12.0 - 16.0 g/dL [facility] Hemoglobin x 3 30.6(L) 36.0 - 48.0 % [facility] 12/21/2024 12/23/2024 8:2 5 AM EDT Narrative [facility] - 12/23/2024 Unless otherwise specified, test(s) performed at: [facility], [address] [place] [id number] HELP DESK INTERNSHIP: Andry Spangler M.D. For any questions, please call customer service at FREQUENCY:OTHER Resulting Agency Comment Specimen source: Blood Shahab Weinberg MD LAB BLOOD ORDERABLES Final Re sult [facility] See order comments or contact performing lab Unknown, [place] * THYROIDS (12/14/2024) Only the most recent of3 resultswithin the time period is included. TSH 2.802 0.300 - 3.000 mIU/L [facility] Comment: The reference range of 0.300-3.000 mIU/L is recommended by the [place] [employer]ocrin[employer] (AACE). An ESRD population contains about 20% of individuals with TSH of up to 20 mIU/L and normal free T4 consistent with non-thyroidal illness. ESRD patients with true hypothyroidism develop persistent values above 20 mIU/L. 12/14/2024 12/15/2024 9:5 1 AM EDT Narrative [facility] - 12/15/2024 Unless otherwise specified, test(s) performed at: [facility], [address] [place] [id number] HELP DESK INTERNSHIP: Andry Spangler M.D. For any questions, please call customer service at FREQUENCY:MONTHLY Resulting Agency Comment Specimen source: Serum Shahab Weinberg MD LAB BLOOD ORDERABLES Final Re sult Performing Organization Address City/[facility]/ZIP Co de Phone Number [facility] See order comments or contact performing lab Unknown, [place] * IMMUNO CHEMISTRY (12/14/2024) Only the most recent of3 resultswithin the time period is included. Pathologist [facility] Hep B Surface Ag Negative Negative [facility] 12/14/2024 12/15/2024 9:5 1 AM EDT Narrative Resulting Agency Comment Specimen source: Serum Shahab Weinberg MD LAB BLOOD ORDERABLES Final Re sult Performing Organization Address [facility] Co de Phone Number [facility] See order comments or contact performing lab Unknown, [place] * (ABNORMAL) [facility] (12/14/2024) Only the most recent of12 resultswithin the time period is included. Ferritin 1,071(H) 10 - 291 ng/mL [facility] BUN 33(H) 6 - 19 mg/dL [facility] Creatinine 5.53(H) 0.60 - 1.30 mg/dL [facility] BUN/Creatinine Ratio 6.0(L) 10.0 - 20.0 [facility] Sodium 134(L) 136 - 145 mEq/L [facility] Potassium 5.1 3.5 - 5.1 mEq/L [facility] Chloride 101 96 - 108 mEq/L [facility] Bicarbonate (CO2) 17(L) 22 - 29 mEq/L [facility] Calcium 8.9 8.4 - 10.2 mg/dL [facility] Corrected Calcium 9.1 8.4 - 10.2 mg/dL [facility] Comment: Corrected Calcium is not equivalent to measured Ionized Calcium. Phosphorus 5.1(H) 2.6 - 4.5 mg/dL [facility] Calcium Phosphorus Product 45 0 - 54 [facility] Calcium Phosporus Product, Cor 46 0 - 54 [facility] Albumin 3.7 3.5 - 5.2 g/dL [facility] Glucose 387(H) 70 - 100 mg/dL [facility] Magnesium 2.5 1.6 - 2.6 mg/dL [facility] Iron 100 30 - 160 mcg/dL [facility] UIBC 143(L) 155 - 355 mcg/dL [facility] TIBC 243 185 - 515 mcg/dL [facility] Iron Saturation (TSat) 41 20 - 55 % [facility] 12/14/2024 12/15/2024 9:5 1 AM EDT Narrative [facility] - 12/15/2024 Unless otherwise specified, test(s) performed at: [facility], [address] [place] [address] HELP DESK INTERNSHIP: Andry Spangler M.D. For any questions, please call customer service at FREQUENCY:MONTHLY Resulting Agency Comment Specimen source: Serum Shahab Weinberg MD LAB BLOOD ORDERABLES Edited R esult - Final Performing Organization Address City/[facility]/ZIP Co de Phone Number [facility] See order comments or contact performing lab Unknown, [place] * HD KINETICS (11/30/2024) Only the most recent of3 resultswithin the time period is included. % Urea Reduction 72 65 - 80 % [facility] 11/30/2024 12/02/2024 11: 57 AM EDT Narrative Resulting Agency Comment Specimen source: Plasma Shahab Weinberg MD LAB BLOOD ORDERABLES Final Re sult [facility] See order comments or contact performing lab Unknown, [place] * POST CHEMISTRY (11/30/2024) Only the most recent of3 resultswithin the time period is included. BUN Post Dialysis 13 6 - 19 mg/dL [facility] 11/30/2024 12/02/2024 11: 57 AM EDT Narrative [facility] - 12/02/2024 Unless otherwise specified, test(s) performed at: [facility], [address] [place] [address] HELP DESK INTERNSHIP: Andry Spangler M.D. For any questions, please call customer service at FREQUENCY:OTHER Resulting Agency Comment Specimen source: Plasma Shahab Weinberg MD LAB BLOOD ORDERABLES Final Re sult [facility] See order comments or contact performing lab Unknown, [place] * [facility] Results (11/30/2024) Only the most recent of3 resultswithin the time period is included. eKt/V ([place]all) 1.29 [facility] eKt/V Gotch 1.31 [facility] e Center spKt/V (Daugirdas II) 1.48 [facility] WSTDKT/V 2.4 [facility] PCR 44.05 [facility] nPCR_HD 0.85 [facility] spKt/V Gotch 1.52 [facility] eNPCR 0.80 [facility] eKdrt/V 1.31 [facility] 11/30/2024 11/30/2024 [facility] Ordering Provider LAB BLOOD ORDERABLES Final Result [facility] Contact Performing lab Unknown, [place] from Last 3 Months Insurance [employer] [employer] Medicaid Care Teams Product Line Manager Relationship Specialty Start Date End Date Simone Guerra MD [address] [address] PCP - General Family Medicine 08/09/24
== END 2024-12-27 11:25 | disposition home or self-care (01) ==
LOC: HO.ENCR 10:51
PROVIDERS: PCP Nurse Practitioner Family; Visit Provider Registered Nurse Diabetes Educator
DX: E11.8 Type 2 diabetes mellitus with unspecified complications (principal)
CPT/HCPCS: 99499

== ENCOUNTER 2024-12-27 13:06 | Outpatient (AMB) | payer OTHER, SELFPAY ==
[2024-12-27 13:10] VITALS: BP 136/50; PULSE 70; O2SAT 99; BMI 31.4
--- NOTE | 2024-12-27 13:10 | MHC.OFFVIS ---
Vital Signs 12/27/24 13:10 Height 5 ft Weight 161 lb BMI 31.4 BP 136/50 L Blood Pressure Location Lt brachial Position Sitting Pulse 70 Pulse Source Pulse Oximeter Pulse Oximetry (%) 99 Oxygen Delivery Method Room Air Intake Visit Reasons: Pulmonary hypertension Allergies No Known Allergies Allergy (Verified 12/27/24 13:12) HPI HPI Pulmonary hypertension: Details: Amanda is a pleasant 54 year old female, never smoker, with underlying COPD, pulmonary hypertension, CKD on dialysis 06/2024, h/o pericardial effusion, DMII, Hypothyroidism and question ELTON, previously on ELTON. She is accompanied by daughter and is requesting daughter translate for duration of appointment. She reports hospitalizations earlier this year related to CKD now maintained on dialysis MWF, h/o pericardial effusion and new diagnosis of moderate pulmonary hypertension. She had echo 05/2024 in [facility] which revealed LVEF 55%, dilated RA/RV with RVSP 54, previously on sildenafil, toresemide and prazosin. She also underwent cardiac cath however RVSP or pulmonary wedge pressure not documented. Prior CTA 05/2024 performed in [facility] revealed enlargement of pulmonary trunk, negative for PE with patchy ggo of bilateral lungs, images not available today. Prior to hospitalizations patient with significant dyspnea resulting in limited activity and orthopnea however since initiating dialysis patient reports resolution of respiratory symptoms and denies BLE edema or orthopnea. She carries a diagnosis of COPD, unknown severity. PFT ordered at the last visit as well as home sleep study given prior h/o ELTON and chest CT. Likely prior finding of pulmonary hypertension related to fluid overload and patient with significant improvements in respiratory symptoms since initiating dialysis and continues with dialysis MWF. She denies any visits to urgent care or hospitalizations related to respiratory distress since the last visit. Of note, patient did state she will be leaving back to [facility] next week until August 2025. Today she presents to review chest CT and home sleep study results. [facility] Medical History (Updated 12/13/24 @ 08:44 by Katie Maxwell NP) Metabolic dysfunction-associated steatotic liver disease (MASLD) Long-term insulin use Kidney disease GERD (gastroesophageal reflux disease) Liver disease Edema Spine disorder Surgical History No pertinent past surgical history Family History Mother HTN (hypertension) Diabetes Father HTN (hypertension) Sister Diabetes Brother Diabetes Social History Household Members: Family Both parents involved: No Caregiver staying overnight: No Housing: House Are you a primary daycare director to a significant other at home: No Do you presently have visiting nurse or other home services: No 75 years or older and lives alone: No Alcohol intake: never Patient Tobacco Use Status: Never used Tobacco e-Cigarette/Vaping Use: Never Used Second Hand Smoke Exposure: No Current occupational status: unemployed and disabled Cognitive needs: No Hearing needs: No Vision needs: No Review of Systems Const Denies chills, Denies excessive sweating, Denies fever(s), Denies headache(s) and Denies night sweats Eyes Denies dry eyes, Denies irritation and Denies itchy eyes ENT Reports Normal hearing present, Denies headache(s), Denies nasal congestion, Denies nasal discharge, Denies post nasal drip and Denies sore throat Card Denies chest pain, Denies chest pain at rest, Denies chest pain with activity, Denies claudication, Denies leg edema, Denies dyspnea, Denies dyspnea on exertion, Denies orthopnea and Denies paroxysmal nocturnal dyspnea Resp Denies chest congestion, Denies cough, Denies excessive phlegm production, Denies pain on inspiration, Denies pain with cough, Denies dyspnea, Denies dyspnea on exertion, Denies stridor and Denies wheezing Musc Denies myalgias Neuro Reports Normal hearing present and Denies headache(s) Endo Denies excessive sweating Thierno/Lymph Denies lymphadenopathy Aller/Immun Denies itchy eyes, Denies seasonal rhinorrhea and Denies wheezing Physical Exam Vital Signs: Last Vital Signs Pulse 70 12/27/24 13:10 BP 136/50 L 12/27/24 13:10 Pulse Ox 99 12/27/24 13:10 Oxygen Delivery Method Room Air 12/27/24 13:10 BMI result Body Mass Index 31.4 Const General: cooperative, healthy appearing, comfortable, no acute distress, well developed and alert Nutritional Appearance: obese Orientation/consciousness: patient oriented x3 Limitations: no limitations HEENT Head: Yes normal to inspection, Yes normocephalic and Yes atraumatic Ears: hearing grossly normal bilaterally and external ears normal Eyes General: appearance normal, both eyes and all related structures Eyelids: Yes eyelids normal Sclerae: sclerae normal EOM: EOMs intact bilaterally Neck Neck: Yes normal visual inspection and Yes no lymphadenopathy Lymphatic: no lymphadenopathy noted Chest Chest palpation & inspection: normal inspection of the chest Resp Effort & Inspection: normal respiratory effort, able to speak in complete sentences, no audible wheezes, no cough, no stridor, not tachypneic, no tripod positioning and no use of accessory muscles Auscultation: clear to auscultation bilaterally Cardio Jugular venous distension: no JVD Rate: regular rate Rhythm: regular rhythm Skin Other: warm, dry General skin exam: no rashes or lesions noted Neuro General: patient oriented x3 Cranial nerves: Yes Normal hearing present Cognition (Neuro): normal cognition Gait exam (Neuro): Normal gait present Extrem General: Yes normal to inspection, Yes capillary refill normal, Yes no clubbing, cyanosis or edema and Yes no pedal edema Psych Appearance: grossly normal and well kempt Speech and movement: Normal speech and movement present and Clear speech present Affect: normal affect Attitude: cooperative Thought process: Normal thought process present Thought content: Normal thought content present Insight: Good insight present (Psych) Judgement: Good judgement present (Psych) Results Reviewed Results Reviewed: [place] [id number] CT Scan Report Signed Patient: Amanda Jim MR#: [id number] : 1970 Acct:[id number] Age/Sex: 54 / F ADM Date: 12/13/24 Loc: .CT Attending Dr: Katie Maxwell NP Ordering Physician: Katie Maxwell NP Date of Service: 12/13/24 Procedure(s): CT chest wo IV con Accession Number(s): [id number] cc: Nora FranklinP-BC; Katie Maxwell NP~ Report Number: [id number]: Total DLP = 204.00 mGy-cm Reason for Exam: R91.8 - Other nonspecific abnormal finding of lung field EXAMINATION: CT CHEST WITHOUT IV CONTRAST INDICATION: R91.8 - Other nonspecific abnormal finding of lung field COMPARISON: There are no prior studies available for comparison. TECHNIQUE: Helical CT scan of the chest was performed without intravenous contrast. Coronal and sagittal reformatted images were generated and reviewed. This CT exam was performed with one or more of the following dose reduction techniques: automated exposure control, adjustment of the mA and/or kV according to patient size, use of iterative reconstruction technique. DLP: 204 mGy-cm CHEST: THYROID: The thyroid is unremarkable. LUNGS: There is a 6 x 3 mm subpleural nodular density at the right lung apex (series 4, image 24). There is a 3 mm nodule along the right major fissure (series 4, image 57) which likely represents an intrapulmonary lymph node. There is mild scarring at the left lung base. MEDIASTINUM: There is no mediastinal lymphadenopathy. MICHAELLE: Evaluation of the hilar regions is limited by lack of intravenous contrast material. CARDIOVASCULATURE: The heart is mildly enlarged. There is no pericardial effusion. The thoracic aorta is normal in caliber. DEGREE OF CORONARY CALCIFICATION: mild PLEURA: There is no pleural effusion. No pneumothorax. MAIN AIRWAYS: The mainstem bronchi and proximal branches are patent. AXILLA: There is no axillary lymphadenopathy. BONES AND SOFT TISSUES: Unremarkable UPPER ABDOMEN: The visualized portions of the liver, spleen, and adrenals have an unremarkable unenhanced appearance. CT/CT chest wo IV con IMPRESSION: Pulmonary nodules as described. Please see Fleischner Society guidelines below. Fleischner Criteria for pulmonary nodule follow-up SOLID NODULES: Low risk patient: <6mm: no follow-up 6-8mm: 6 month follow-up CT >8mm: PET/Biopsy/ 3 month follow-up CT High risk patient: <6mm: 12 month follow-up CT 6-8mm: 6 month follow-up CT >8mm: PET/Biopsy/ 3 month follow-up CT SUB-SOLID/GROUNDGLASS NODULES: All patients: > or = 6mm: 6 month follow-up CT *Please note that in patients in the following categories, the Fleischner criteria do not apply: Immunocompromised, lung cancer screening population, age below 35, and patients with known malignancy Electronically signed by: Geo Walters MD 12/13/2024 08:17 AM EDT RP Dictated By: Geo Walters MD Signed By: <Electronically signed by Geo Walters MD in [place]> 12/13/24816 DD/ 0 TD/TT: 12/13/24 08 Store Mgr: Assessment & Plan Assessment & Plan (1) Pulmonary nodule: Code(s): R91.1 - Solitary pulmonary nodule Category: Medical (2) Pulmonary HTN: Code(s): I27.20 - Pulmonary hypertension, unspecified Category: Medical Plan Prior estimated RSVP 55 on echo 05/2024. She underwent cardiac cath however no note of pulmonary pressures on this nor wedge pressure. Repeat echo unable to estimate pulmonary pressures to confirm continued diagnosis of pulmonary hypertension. Patient currently denies any respiratory symptoms and would hold off on further testing however if dyspnea worsens or develops cough may need to further assess with right heart cath, likely that prior echo may have been falsely elevated due to fluid overload. At some point patient required CPAP therapy and patient continues with daytime fatigue, however recent home sleep study unremarkable. Prior CT 05/2024 revealed diffuse ground glass opacities, possibly related to fluid overload, CT revealed resolution of ggo continues with pulmonary nodules, largest 6mm in size. Discussed repeating chest ct in 6 months however patient will be in [place] and requested chest CT to be schedule upon return in the summer 2025. Will enter. PFT order placed to assess severity of COPD and has nebulized medication to use PRN which she has not required. Unfortunately PFT scheduled next month and patient requesting to reschedule until she returns. All questions were answered and patient is in agreement of plan. Will follow up to reassess symptoms when she returns August/September 2025. Coding Level of Care Code Est Pt Level 4 (64832) Complex EM visit Add On G2211 Diagnoses Pulmonary nodule R91.1 Pulmonary HTN I27.20
== END 2024-12-27 13:38 | disposition home or self-care (01) ==
LOC: HO.HPSW 13:07
PROVIDERS: PCP Nurse Practitioner Family; Visit Provider Nurse Practitioner Family
DX: R91.1 Solitary pulmonary nodule (principal); I27.20 Pulmonary hypertension, unspecified
CPT/HCPCS: 99214; G2211

== ENCOUNTER 2024-12-29 08:26 | Outpatient (AMB) | payer OTHER, SELFPAY ==
--- NOTE | 2024-12-29 08:29 | A.OFFPC_ITS ---
Vital Signs 12/29/24 08:33 12/29/24 08:45 Height 5 ft Weight 160 lb 6 oz BMI 31.3 BP 156/78 H 130/56 L Blood Pressure Location Lt brachial Lt brachial Position Sitting Sitting Respiration 13 Pulse 94 Pulse Source Pulse Oximeter Temp 97.3 F Temp Source Oral Pulse Oximetry (%) 98 Oxygen Delivery Method Room Air Intake Visit Reasons: 8 weeks 30 min close interim fu, est care Intake Note: 8 Weeks follow up. Research Soil Scientist Required: No Allergies No Known Allergies Allergy (Verified 12/29/24 08:38) Medication List - Last Reconciled 12/29/24 by Nora Franklin, [employer] OPERATOR-BC albuterol sulfate 2.5 mg (3 mL) inhalation Q4-6H PRN aspirin 81 mg PO DAILY atorvastatin (Lipitor) 40 mg PO BEDTIME blood sugar diagnostic (FreeStyle Lite Strips) ONCE PER DAY blood-glucose meter (FreeStyle Lite Meter kit) ONCE PER DAY blood-glucose sensor (Scion Cardio VascularStyle Keesha 3 Plus Sensor device) As directed every 15 days blood-glucose,oncology account specialist,cont (FreeStyle Keesha 3 [place]) As directed calcitriol 0.25 mcg PO 3XW clonidine HCl 0.2 mg PO BID esomeprazole magnesium 40 mg PO DAILY hydrochlorothiazide 12.5 mg PO DAILY insulin glargine (Basaglar KwikPen U-100 Insulin) 12 units (0.12 mL) subcut DAILY insulin lispro (Humalog KwikPen (U-100) Insulin) subcutaneously 2 times a day; 8 units before lunch, 5 units before dinner lancets ONCE PER DAY levothyroxine 75 mcg PO DAILY linagliptin 5 mg PO DAILY losartan 100 mg PO DAILY nifedipine ER 30 mg PO DAILY ondansetron HCl 4 mg PO DAILY PRN pen needle, diabetic (Comfort EZ Pen Protection) As directed to inject insulin 3 times a day prazosin 5 mg PO BID sevelamer carbonate 800 mg PO QID torsemide 40 mg (2 x 20 mg) PO DAILY Tobacco use date assessed: 12/29/24 Dental Screening Dental Screen Date: 12/29/24 Did you have a dental visit in the last 12 months?: Yes Did you have a dental problem in the last 6 months where you did not have access to dental care?: No Was dental information given to patient?: Patient has dentist HPI HPI Comments History of Present Illness Details 54 y/o F with pericardial effusion, pulm onary HTN, CKD on dialysis, DM2, hypothroid, CAD, Pulm HTN, ELTON, CARR, Obesity lap matias Health Maintenance Tdap 08/2024 Flu 12/29/24 Colon Mammo [facility] Renal Pulm Optho appt 12/29/24 Podiatry Cards History of Present Illness The patient is a 54-year-old female presenting with follow-up for complex medical conditions and management. Presents w/ dtr who helps w/ translation per the patients request Diabetes Mellitus: - History of management and medication c hanges. - Medication changes managed. - Diabetic eye exam necessary, appt toda y. - Active w/ Endo - Needs new referral to Podiatry. Hypercholesterolemia: - Recent medication increase. - Under specialist care. Chronic Kidney Disease: - On dialysis. - [place]. Cardiac and Respiratory Conditions: - Saw a casino banker and lead technical writer. - Consult notes reviewed. She will be leaving for [facility] soon and staying there until August 2025. Reports she will be ff'd medically there. Review of Systems - Cardiovascular: Denies hospital visits recently, recent specialist consultation. - Respiratory: Reports ongoing managemen t, no active issues - Endocrine: Reports recent medication c hanges, diabetic eye exams pending. - Musculoskeletal: Denies falls. - Renal: Reports ongoing dialysis, arran gemelsy made for continuation during travel. Physical Exam General: Well developed, well nourished, in no acute distress. Appears stated age. Head: Normocephalic, atraumatic. Eyes: Pupils are equal, round and reactive to light and accommodation. Conjunctivae are clear. Lungs: Dim throughout. Heart: Regular rate and rhythm. 2/6 systolic murmurs, No click, rubs or gallops are noted. Pulses: Peripheral pulses are equal and palpable bilaterally. Extremities: No clubbing, cyanosis nor edema is noted. Psych: Mood and affect appropriate. Discussion Notes During the visit, I discussed the continued management of the patient's complex medical conditions including diabetes, hypercholesterolemia, and chronic kidney disease. We reviewed her recent specialist consultations and medication adjustments. I confirmed the need for a diabetic eye exam and arranged to adjust her podiatry referral to a provider within her insurance network. The patient is traveling to [facility] for an extended period, and arrangements for continued dialysis have already been communicated to her current specialists. I advised her on the importance of the flu vaccination, especially given her travel plans. We discussed the details of her follow-up plan upon return in August or September, including necessary lab work one week prior to her next visit. Patient was given time to ask questions. All questions were answered to their satisfaction. Assessment and Plan 1. Diabetes Mellitus - cont all meds, care w/ Endo; attend az heduled diabetic eye exam. [facility] podiatry referral placed today. 2. Hypercholesterolemia/HTN - Cont all meds & care per [facility] Cards 3. Chronic Kidney Disease - Ongoing dialysis. will need to order mammo, colon and dexa upon return Patient Instructions - Continue with current medications as d irected by specialists. - Plan for a diabetic eye exam. - Receive the flu shot today. - Continue dialysis abroad in [place]. - Arrange follow-up with upsetter helper upon return. - Schedule a follow-up appointment in [facility]. Gets labs done 1 week ebfore appt. - Monitor for changes in health and repo rt any issues immediately. Flu shot admin today Consent Patient was informed and verbally consented to the use of an ambient scribe for clinic note documentation during this visit. Total time spent caring for the patient today was 41 minutes. This includes time spent before the visit reviewing the chart, time spent during the visit, and time spent after the visit on documentation, reviewing laboratory results, diagnostic imaging, medications, performing a medically necessary evaluation, counseling on diagnoses, care coordination, ordering appropriate tests, ordering appropriate medications, review of tests performed by other providers, reporting test results with the patient, communication with other healthcare providers. 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 Surgical History No pertinent past surgical history Family History Mother HTN (hypertension) Diabetes Father HTN (hypertension) Sister Diabetes Brother Diabetes Social History Household Members: Family Both parents involved: No Caregiver staying overnight: No Housing: House Are you a primary adult care provider to a significant other at home: No Do you presently have visiting nurse or other home services: No 75 years or older and lives alone: No Alcohol intake: never Patient Tobacco Use Status: Never used Tobacco e-Cigarette/Vaping Use: Never Used Second Hand Smoke Exposure: No Current occupational status: unemployed and disabled Cognitive needs: No Hearing needs: No Vision needs: No Questionnaire PHQ-9 Over the last 2 weeks, how often have you been bothered by any of the following problems? 1. Little interest or pleasure in doing things: not at all 2. Feeling down, depressed, or hopeless: not at all 3. Trouble falling or staying asleep, or sleeping too much: not at all 4. Feeling tired or having little energy: not at all 5. Poor appetite or overeating: not at all 6. Feeling bad about yourself - or that you are a failure or have let yourself or your family down: not at all 7. Trouble concentrating on things, such as reading the newspaper or watching television: not at all 8. Moving or speaking so slowly that other people could have noticed. Or the opposite - being so fidgety or restless that you have been moving around a lot more than usual: not at all 9. Thoughts that you would be better off or of hurting yourself in some way: not at all Total score: 0 Depression Screening Interpretation: Negative Depression Screening Done: Yes 42749 - PHQ-9 Billing: Yes Source: Developed by Drs. Geo Frank, Sharon Murillo, Alex Mcnally and colleagues, with an educational malika from [employer]. Thrive Questionnaire Date Thrive assessed: 12/29/24 I am a: Parent/Caregiver What is your living situation today?: I have a steady place to live Within the past 12 months, did the food you bought not last and you didn't have the money to get more?: Never true Within the past 12 months, did you worry whether your food would run out before you got money to buy more?: Never true Do you have trouble paying for medicines?: No Do you have trouble getting transportation to medical appointments?: Yes Do you have trouble paying your heating and electricity bill?: No Do you have trouble taking care of your child, family member or friend?: No Do you have trouble with day-to-day activities such as bathing, preparing meals, shopping, managing finances, etc.?: Yes Are you currently unemployed and looking for a job?: No Are you interested in more education?: No Please select the resources that you would like help with: Transportation Currently or been in a relationship where the following occur: No concerns reported THRIVE Score: 1 BRIAN-7 AMB Questionnaire BRIAN-7 Date BRIAN - 7 assessed: 12/29/24 Feeling nervous, anxious, or on edge: 0 = Not at all Not being able to stop or control worryin = Not at all Worrying too much about different things: 0 = Not at all Trouble relaxin = Not at all Being so restless that it is hard to sit still: 0 = Not at all Becoming easily annoyed or irritable: 0 = Not at all Feeling afraid as if something awful might happen: 0 = Not at all Total BRIAN-7 score (0-4 normal; 5-9 mild; 10-14 moderate; 15-21 severe): 0 Source: Developed by Drs. Geo Frank, Sharon Murillo, Alex Mcnally and colleagues, with an educational malika from [employer]. BRIAN-7 Assessment Billing BRIAN-7 Assessment Tool: BRIAN-7 Assessment 32768 Physical exam (Primary Care) Vital Signs: Last Vital Signs Temp 97.3 F 12/29/24 08:33 Pulse 94 12/29/24 08:33 Resp 13 12/29/24 08:33 BP 130/56 L 12/29/24 08:45 Pulse Ox 98 12/29/24 08:33 Oxygen Delivery Method Room Air 12/29/24 08:33 BMI result Body Mass Index 31.3 BMI Assessment/Plan discussion: High BMI High, discussed plan: lifestyle Tobacco/Smoking Status: Tobacco use Status Tobacco use date assessed 12/29/24 12/29/24 08:32 Patient Tobacco Use Status Never used Tobacco 12/29/24 08:32 e-Cigarette/Vaping Use Never Used 12/29/24 08:32 PHQ-9: PHQ-9 Score PHQ-9: Total score 0 12/29/24 08:40 Depression Screening Interpretation: Negative Thrive Assessment: Date of Thrive Assessment Date Thrive assessed 12/29/24 12/29/24 08:32 Currently or been in a relationship where the following occur: No concerns reported Coding Level of Care Code Est Pt Level 5 (90729) Complex EM visit Add On G2211 Diagnoses Diabetes mellitus type 2 with complications E11.8 Acquired hypothyroidism E03.9 Hypothyroidism type: acquired Hypertension due to endocrine disorder I15.2 Hypertension type: secondary to endocrine disorders Influenza vaccination administered at current visit Z23 Obesity (BMI 30-39.9) E66.9 Atherosclerotic cardiovascular disease I25.10 Long-term insulin use Z79.4 Secondary hyperparathyroidism (of renal origin) N25.81 ESRD on hemodialysis N18.6; Z99.2 Panlobular emphysema J43.1 COPD type: emphysema Emphysema type: panlobular Obstructive sleep apnea G47.33 Metabolic dysfunction-associated steatotic liver disease (MASLD) K76.0 Additional Codes BRIAN-7 Assessment Billing - BRIAN-7 Assessment Tool: BRIAN-7 Assessment 57576 ([id number]) PHQ-9 - 62435 - PHQ-9 Billing: Yes ([id number]) Assessment & Plan Assessment & Plan (1) Diabetes mellitus type 2 with complications: Code(s): E11.8 - Type 2 diabetes mellitus with unspecified complications Category: Medical (2) Hypothyroid: Code(s): E03.9 - Hypothyroidism, unspecified Category: Medical Qualifiers: Hypothyroidism type: acquired Qualified Code(s): E03.9 - Hypot hyroidism, unspecified (3) HTN (hypertension): Code(s): I10 - Essential (primary) hypertension Category: Medical Qualifiers: Hypertension type: secondary to endocrine disorders Qualified Code(s): I15.2 - Hypertension secondary to endocrine disorders (4) Influenza vaccination administered at current visit: Code(s): Z23 - Encounter for immunization Category: Medical (5) Obesity (BMI 30-39.9): Code(s): E66.9 - Obesity, unspecified Category: Medical (6) Atherosclerotic cardiovascular disease: Comment: Cardiac catheterization [place]-May 2024. Normal left main. LAD with calcific proximal plaque. Ramus with diffuse disease, small caliber. Circumflex add proximal 70-80% stenosis followed by 60-70% stenosis. OM1 with proximal 70% and diffuse distal disease. RCA with 60% proximal and distal stenosis. Code(s): I25.10 - Atherosclerotic heart disease of [place] coronary artery without angina pectoris Category: Medical (7) Long-term insulin use: Code(s): Z79.4 - exterminator helper (current) use of insulin Category: Medical (8) Secondary hyperparathyroidism (of renal origin): Comment: 08/17/24 339 Code(s): N25.81 - Secondary hyperparathyroidism of renal origin Category: Medical (9) ESRD on hemodialysis: Code(s): N18.6 - End stage renal disease; Z99.2 - Dependence on renal dialysis Category: Medical (10) COPD (chronic obstructive pulmonary disease): Code(s): J44.9 - Chronic obstructive pulmonary disease, unspecified Category: Medical Qualifiers: COPD type: emphysema Emphysema type: panlobular Qualified Code(s): J43.1 - Panlobular emphysema (11) Obstructive sleep apnea: Code(s): G47.33 - Obstructive sleep apnea (adult) (pediatric) Category: Medical (12) Metabolic dysfunction-associated steatotic liver disease (MASLD): Code(s): K76.0 - Fatty (change of) liver, not elsewhere classified Category: Medical Plan . Orders: Orders TSH reflex Free T4 08/28/25 E03.9 - Hypothyroidism, unspecified, E11.8 - Type 2 diabetes mellitus with unspecified complications, I15.2 - Hypertension secondary to endocrine disorders Vitamin B12 and Folate 08/28/25 E03.9 - Hypothyroidism, unspecified, E11.8 - Type 2 diabetes mellitus with unspecified complications, I15.2 - Hypertension secondary to endocrine disorders Influenza [id number] Immunization Today Z23 - Encounter for immunization Hemoglobin A1c 08/28/25 E03.9 - Hypothyroidism, unspecified, E11.8 - Type 2 diabetes mellitus with unspecified complications, I15.2 - Hypertension secondary to endocrine disorders Microalbumin, Random (w Creat) 08/28/25 E03.9 - Hypothyroidism, unspecified, E11.8 - Type 2 diabetes mellitus with unspecified complications, I15.2 - Hypertension secondary to endocrine disorders Lipid Panel 08/28/25 E03.9 - Hypothyroidism, unspecified, E11.8 - Type 2 diabetes mellitus with unspecified complications, I15.2 - Hypertension secondary to endocrine disorders Referrals Podiatry Referral E11.8 - Type 2 diabetes mellitus with unspecified complications Medications: New Fluarix [id number] (PF) (flu vac ts (6mos up)-PF) 0.5 mL IM ONCE 0.5 mL 0RF NS Z23 - Encounter for immunization
[2024-12-29 08:33] VITALS: BP 156/78; PULSE 94; RESP 13; TEMP 36.3; O2SAT 98; BMI 31.3
[2024-12-29 08:45] VITALS: BP 130/56
--- OUTSIDE RECORDS SUMMARY | 2024-12-29 08:45 | XMS_ITS | Clinical Summary ---
Author Organization [facility], Address [address] [place] [address] Phone Care Team Providers Care Lead Solutions Architect Name Role Phone Simone Guerra MD Primary Care Provider Allergies No known active allergies Active Problems Problem Noted Date Diagnosed Date End stage renal disease 07/18/2024 Encounters Date Type Department Care Team Description 12/21/2024 Orders Only [facility] [address] [address] Shahab Weinberg MD 12/14/2024 Orders Only [facility] [address] [address] Shahab Weinberg MD 12/12/2024 Treatment [facility], [address] [place] [address] Ally Dodge APRN End stage renal disease; Dependence on renal dialysis 12/07/2024 Orders Only [facility] [address] [address] Shahab Weinberg MD 12/05/2024 Treatment [facility], [address] [place] [address] Ally Dodge APRN End stage renal disease; Dependence on renal dialysis 12/02/2024 Treatment [facility], [address] [place] [address] Nayan Gunderson MD End stage renal disease; Dependence on renal dialysis; 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 Orders Only [facility] [address] [address] Shahab Weinberg MD 11/30/2024 Treatment [facility], [address] [place] [address] Ally Dodge APRN End stage renal disease; Dependence on renal dialysis 11/23/2024 Orders Only [facility] [address] [address] Shahab Weinberg MD 11/21/2024 Orders Only [facility] [address] [address] Shahab Weinberg MD 11/18/2024 Orders Only [facility] [address] [address] Shahab Weinberg MD 11/16/2024 Orders Only [facility] [address] [address] Shahab Weinberg MD 11/14/2024 Treatment [facility] [address] [place] [address] Ally Dodge APRN End stage renal disease; Dependence on renal dialysis 11/11/2024 Treatment [facility] [address] [place] [address] Nayan Gunderson MD End stage renal disease; Dependence on renal dialysis; Type 2 diabetes mellitus with diabetic chronic kidney disease 11/09/2024 Orders Only [facility] [address] [address] Shahab Weinberg MD 11/07/2024 Treatment [facility] [address] [place] [address] Ally Dodge APRN End stage renal disease; Dependence on renal dialysis 11/02/2024 Orders Only [facility] [address] [address] Shahab Weinberg MD 10/31/2024 Treatment [facility], [address] [place], [place] [address] [address] Ally Dodge APRN End stage renal disease; Dependence on renal dialysis 10/27/2024 8:45 AM EDT Office Visit [facility], - [facility] [address] [place] [address] Jamie Momin MD 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 Orders Only [facility] [address] [address] Shahab Weinberg MD 10/21/2024 Treatment [facility], [address] [place] [address] [place] [address] Ally Dodge APRN End stage renal disease; Dependence on renal dialysis 10/19/2024 Orders Only [facility] [address] [address] Shahab Weinberg MD 10/17/2024 Treatment [facility], [address] [place] [address] [place] [address] Ally Dodge APRN End stage renal disease; Dependence on renal dialysis 10/12/2024 Orders Only [facility] [address] [address] Shahab Weinberg MD 10/10/2024 Treatment [facility], [address] [facility] [place] [address] Ally Dodge APRN End stage renal disease; Dependence on renal dialysis 10/07/2024 Treatment [facility], [address] [place] [address] Nayan Gunderson MD End stage renal disease; Dependence on renal dialysis; Type 2 diabetes mellitus with diabetic chronic kidney disease 10/05/2024 Orders Only [facility] [address] [address] Shahab Weinberg MD 09/28/2024 Orders Only [facility] [address] [address] Shahab Weinberg MD from Last 3 Months [...] included. Hemoglobin 10.2(L) 12.0 - 16.0 g/dL [facility] Hemoglobin x 3 30.6(L) 36.0 - 48.0 % [facility] 12/21/2024 12/23/2024 8:2 5 AM EDT Narrative [facility] - 12/23/2024 Unless otherwise specified, test(s) performed at: [facility], [address] [place] [id number] [employer]RE[employer] SPECIALIST: Andry Spangler M.D. For any questions, please call customer service at FREQUENCY:OTHER Resulting Agency Comment Specimen source: Blood Shahab Weinberg MD LAB BLOOD ORDERABLES Final Re sult [facility] See order comments or contact performing lab Unknown, [place] * THYROIDS (12/14/2024) Only the most recent of3 resultswithin the time period is included. TSH 2.802 0.300 - 3.000 mIU/L [facility] Comment: The reference range of 0.300-3.000 mIU/L is recommended by the [place] [employer] (AACE). An ESRD population contains about 20% of individuals with TSH of up to 20 mIU/L and normal free T4 consistent with non-thyroidal illness. ESRD patients with true hypothyroidism develop persistent values above 20 mIU/L. 12/14/2024 12/15/2024 9:5 1 AM EDT Narrative [facility] - 12/15/2024 Unless otherwise specified, test(s) performed at: [facility], [address] [place] [id number] COMMUNITY OUTREACH SPECIALIST: Andry Spangler M.D. For any questions, please call customer service at FREQUENCY:MONTHLY Resulting Agency Comment Specimen source: Serum Shahab Weinberg MD LAB BLOOD ORDERABLES Final Re sult Performing Organization Address City/[facility]/ZIP Co de Phone Number [facility] See order comments or contact performing lab Unknown, [place] * IMMUNO CHEMISTRY (12/14/2024) Only the most recent of3 resultswithin the time period is included. Pathologist [facility] Hep B Surface Ag Negative Negative [facility] 12/14/2024 12/15/2024 9:5 1 AM EDT Narrative Resulting Agency Comment Specimen source: Serum Shahab Weinberg MD LAB BLOOD ORDERABLES Final Re sult Performing Organization Address [facility] Co de Phone Number [facility] See order comments or contact performing [...] 12/15/2024 Unless otherwise specified, test(s) performed at: [facility], [address] [place] [address] COMMUNITY OUTREACH SPECIALIST: Andry Spangler M.D. For any questions, please call customer service at FREQUENCY:MONTHLY Resulting Agency Comment Specimen source: Serum Shahab Weinberg MD LAB BLOOD ORDERABLES Edited R esult - Final Performing Organization Address City/[facility]/ZIP Co de Phone Number [facility] See order comments or contact performing lab Unknown, [place] * HD KINETICS (11/30/2024) Only the most recent of3 resultswithin the time period is included. % Urea Reduction 72 65 - 80 % [facility] 11/30/2024 12/02/2024 11: 57 AM EDT Narrative Resulting Agency Comment Specimen source: Plasma Shahab Weinberg MD LAB BLOOD ORDERABLES Final Re sult [facility] See order comments or contact performing lab Unknown, [place] * POST CHEMISTRY (11/30/2024) Only the most recent of3 resultswithin the time period is included. BUN Post Dialysis 13 6 - 19 mg/dL [facility] 11/30/2024 12/02/2024 11: 57 AM EDT Narrative [facility] - 12/02/2024 Unless otherwise specified, test(s) performed at: [facility], [address] [place] [address] COMMUNITY OUTREACH SPECIALIST: Andry Spangler M.D. For any questions, please call customer service at FREQUENCY:OTHER Resulting Agency Comment Specimen source: Plasma Shahab Weinberg MD LAB BLOOD ORDERABLES Final Re sult [facility] See order comments or contact performing lab Unknown, [place] * [facility] Lab Results (11/30/2024) Only the most recent of3 resultswithin the time period is included. eKt/V ([place]) 1.29 [facility] eKt/V Gotch 1.31 [facility] e Center spKt/V (Daugirdas II) 1.48 [facility] WSTDKT/V 2.4 [facility] PCR 44.05 [facility] nPCR_HD 0.85 [facility] spKt/V Gotch 1.52 [facility] ge Center eNPCR 0.80 [facility] eKdrt/V 1.31 [facility] 11/30/2024 11/30/2024 [facility] Ordering Provider LAB BLOOD ORDERABLES Final Result [facility] Contact Performing lab [place], [place] from Last 3 Months Insurance [employer] [employer] Medicaid Care Teams Lead Solutions Architect Relationship Specialty Start Date End Date Simone Guerra MD [address] [address] PCP - General Family Medicine 08/09/24
== END 2024-12-29 08:57 | disposition home or self-care (01) ==
LOC: HO.HMCFM 08:27
PROVIDERS: PCP Nurse Practitioner Family; Visit Provider Nurse Practitioner Family
DX: E11.8 Type 2 diabetes mellitus with unspecified complications (principal); Z79.4 Long term (current) use of insulin; N18.6 End stage renal disease; J43.1 Panlobular emphysema; E66.9 Obesity, unspecified; Z68.31 Body mass index [BMI] 31.0-31.9, adult; E03.9 Hypothyroidism, unspecified; I15.2 Hypertension secondary to endocrine disorders; Z23 Encounter for immunization; I25.10 Atherosclerotic heart disease of native coronary artery without angina pectoris; N25.81 Secondary hyperparathyroidism of renal origin; Z99.2 Dependence on renal dialysis

== ENCOUNTER → 2024-12-29 08:26 | Outpatient (BNVA) | payer OTHER, SELFPAY | PROVIDERS: PCP Nurse Practitioner Family; Visit Provider Nurse Practitioner Family | DX: E11.22 Type 2 diabetes mellitus with diabetic chronic kidney disease (principal); I15.2 Hypertension secondary to endocrine disorders; E78.00 Pure hypercholesterolemia, unspecified; E03.9 Hypothyroidism, unspecified; N25.81 Secondary hyperparathyroidism of renal origin; N18.6 End stage renal disease; J43.1 Panlobular emphysema; G47.33 Obstructive sleep apnea (adult) (pediatric); K76.0 Fatty (change of) liver, not elsewhere classified; Z23 Encounter for immunization; Z79.4 Long term (current) use of insulin; Z99.2 Dependence on renal dialysis | CPT/HCPCS: 90471; 90656; 96127 ==